=== PATIENT | male | born 1980 | race Caucasian/White ===

== ENCOUNTER 2020-10-13 17:19 | Emergency (ER) | payer OTHER, SELFPAY ==
--- NOTE | 2020-10-13 17:32 | CTR_ITS ---
PROCEDURE INFORMATION: Exam: CT Head Without Contrast Exam date and time: 10/13/2020 5:36 PM Age: 40 years old Clinical indication: Dizziness and visual disturbance; Patient HX: GREEN, dizziness, left blurred vision; Additional info: Speech difficulties TECHNIQUE: Imaging protocol: Computed tomography of the head without contrast. Total images: 211 Radiation optimization: All CT scans at this facility use at least one of these dose optimization techniques: automated exposure control; mA and/or kV adjustment per patient size (includes targeted exams where dose is matched to clinical indication); or iterative reconstruction. COMPARISON: No relevant prior studies available. RADIATION DOSE METRICS: Total DLP (mGy-cm): 878.1 FINDINGS: Brain: No evidence of active or acute intracranial pathologic process, hemorrhage, or trauma. No visible evidence of diffuse cerebral edema or generalized demyelination. No visible hyperdense MCA or insular ribbon sign. No mass effect. No midline shift. Cerebral ventricles: No ventriculomegaly. Bones/joints: Unremarkable. No acute fracture. Paranasal sinuses: Visualized sinuses are unremarkable. No fluid levels. Mastoid air cells: Findings suggesting the presence of chronic right mastoiditis. Auditory system: Subtle soft tissue fullness to the right middle ear without visible erosion of the ossicles. Cannot exclude otitis media or cholesteatoma. Soft tissues: Unremarkable. CT/CT head wo con* [id number] IMPRESSION: 1. No evidence of active or acute intracranial pathologic process, hemorrhage, or trauma. 2. Findings suggest the presence of a chronic right mastoiditis. 3. Subtle soft tissue fullness to the right middle ear without visible erosion of the ossicles. Cannot exclude otitis media or cholesteatoma. Radiation Dose CTDIVOL = (mGy): DLP = 878.1 (mGy-cm)
[2020-10-13 17:58] VITALS: BP 143/92; PULSE 80; RESP 16; TEMP 36.7; O2SAT 96; BMI 27.1
--- NOTE | 2020-10-13 20:24 | W.ED.HA ---
HPI - Headache General: Chief Complaint: Headache Stated Complaint: HEAD PAIN, DIZZY,NAUSEA Time Seen by Provider: 10/13/20 20:05 Source: patient Mode of arrival: ambulatory Limitations: no limitations History of Present Illness: HPI Narrative: Headache for the last 4 days progressively has gotten worse. Has been taking ibuprofen every 4-6 hours for pain with no improvement. Nausea, dizziness worse today. History of sinus infections, but not recent. History of multiple episodes AOM as an adult. MD elicited complaint: headache Onset description: gradually Severity: moderate Treatments prior to arrival: ibuprofen Review of Systems General: Reports: 10 or more systems reviewed and unremarkable except in HPI and below Neuro: Reports: headache(s) and dizziness Physical Exam Const: COMMON NORMALS: no acute distress, patient oriented x3 and no limitations GENERAL APPEARANCE: anxious HENMT: COMMON NORMALS: normocephalic and atraumatic HEAD & SCALP: normocephalic and atraumatic EXTERNAL EAR: Yes external ear abnormal (erythema,edema noted.) Abnormal external ear present: auricular tenderness (Right) TYMPANIC MEMBRANE: TM abnormal (Extensive scarring r/t prior tympanic tubes. ) Eye: COMMON NORMALS: Equal, round and reactive pupils present and EOMs intact bilaterally PUPIL: Yes Equal, round and reactive pupils present Resp: COMMON NORMALS: normal respiratory effort, No retractions, No use of accessory muscles and clear to auscultation bilaterally AUSCULTATION: clear to auscultation bilaterally Neuro: COMMON NORMALS: patient oriented x3 Course Vital Signs: Vital signs: Vital Signs Temperature 98.0 F 10/13/20 17:58 Pulse Rate 80 10/13/20 17:58 Respiratory Rate 16 10/13/20 17:58 Blood Pressure 143/92 10/13/20 17:58 Pulse Oximetry 96 10/13/20 17:58 MDM - Headache Lab Data: Labs: Lab Results 10/13/20 Range/Units 20:27 WBC 8.2 (4.0-10.0) 10^3/ uL RBC 5.56 H (4.1-5.3) 10^6/u L Hgb 17.0 H (11.7-16.6) g/dL Hct 49.2 (42.0-52.0) % MCV 88.5 (80-94) fL MCH 30.6 (28.0-34.0) pg MCHC 34.6 (30.0-36.0) g/dL RDW 12.5 (12.1-15.1) % Plt Count 231 (130-400) 10^3/c mm MPV 9.9 (7.4-10.4) fL Neut % (Auto) 51.3 % Lymph % (Auto) 38.2 % [place] % (Auto) 7.4 % Eos % (Auto) 2.2 % Baso % (Auto) 0.7 % Neut # (Auto) 4.18 (1.8-7.7) 10^3/u L Lymph # (Auto) 3.1 (0.8-4.8) 10^3/u L [place] # (Auto) 0.6 (0.2-0.9) 10^3/u L Eos # (Auto) 0.2 (0.0-0.8) 10^3/u L Baso # (Auto) 0.1 (0.0-0.1) 10^3/u L Nucleated RBC % (a uto) 0 % Nucleated RBCs # 0.0 /100WBC Discharge Plan Discharge Patient Disposition: Home Clinical Impression: Mastoiditis of right side Acute otitis media Qualifiers: Otitis media type: suppurative Laterality: right Recurrence: recurrent Spontaneous tympanic membrane rupture: without spontaneous rupture Qualified Code(s): H66.004 - Acute suppurative otitis media without spontaneous rupture of ear drum, recurrent, right ear Condition: Stable Prescriptions: New Cipro 500 mg tablet 750 mg PO BID 7 Days Qty: 21 RF: 0 Discharge Orders: Discharge ED (Routine); Ordered 10/13/20 Ordered By: Cristela Luong Referrals: Mickey Farrar MD [Physician] - 4-7 days Dontae Díaz MD [Primary Care Provider] - Discharge Diet: Usual diet Discharge Activity: Increase activity as tolerated Patient Instructions: Opioid Safety Coding Level of Care Code ED Business Continuity Manager for Chg Fwd Exam Expanded Problem Focused
[2020-10-13 20:33] LABS: Basophils # 0.1 10^3/uL (0.0-0.1); Basophils % 0.7 %; Eosinophils # 0.2 10^3/uL (0.0-0.8); Eosinophils % 2.2 %; Hematocrit 49.2 % (42.0-52.0); Lymphocytes # 3.1 10^3/uL (0.8-4.8); Lymphocytes % 38.2 %; Mean Corpuscular HGB Conc 34.6 g/dL (30.0-36.0); Mean Corpuscular Hemoglobin 30.6 pg (28.0-34.0); Mean Corpuscular Volume 88.5 fL (80-94); Mean Platelet Volume 9.9 fL (7.4-10.4); Monocytes # 0.6 10^3/uL (0.2-0.9); Monocytes % 7.4 %; Neutrophils # 4.18 10^3/uL (1.8-7.7); Neutrophils % 51.3 %; Nucleated Red Blood Cells % 0 %; Platelet Count 231 10^3/cmm (130-400); Red Blood Count 5.56 10^6/uL (4.1-5.3); Red Cell Distribution Width 12.5 % (12.1-15.1); White Blood Count 8.2 10^3/uL (4.0-10.0)
[2020-10-13] MEDS: ciprofloxacin 500 mg Tablet 750 MG PO (20:52)
[2020-10-13] MEDS: HYDROcodone-acetaminophen 7.5-325 mg Tablet 3 TAB PO (20:53)
[2020-10-13 20:56] VITALS: BP 137/89; PULSE 73; RESP 18; O2SAT 99
[2020-10-13 20:56] LABS: Alanine Aminotransferase 29 U/L (0-41); Albumin Level 4.5 g/dL (3.5-5.2); Alkaline Phosphatase 89 IU/L (40-130); Anion Gap 13.9 (5-19); Aspartate Amino Transferase 17 U/L (0-40); Blood Urea Nitrogen 12 mg/dL (6-20); Calcium 9.2 mg/dL (8.5-10.5); Carbon Dioxide 26 mmol/L (22-29); Chloride 100 mmol/L (98-107); Creatinine Clr Calc Pharmacy 162.7356; Globulin 3.3 g/dL (1.3-4.6); Glomerular Filtration Rate 124.3 mL/min (90-130); Glucose 81 mg/dL (65-115); Osmolality Calculated 281 mOsm/kg (285-295); Potassium 3.9 mmol/L (3.5-5.1); Sodium 136 mmol/L (136-145); Total Bilirubin 0.6 mg/dL (0.15-1.2); Total Protein 7.8 g/dL (6.6-8.7)
--- NOTE | 2020-10-14 08:54 | DCPLANNER ---
sales promotion manager had message to schedule a follow up appointment for patient with ortho. Case manage emailed patients information to Yanet Augustine and Rachel at [facility] clinic. Patients information will be printed and reviewed. Clinic will call patient with appointment information.
--- NOTE | 2020-10-26 11:09 | DCPLANNER ---
Addendum entered by Jenni Thrasher 10/26/20 12:43: Fawn from [facility] emailed bottle caser stating that a follow up appointment had been scheduled for patient, then patient called and cancelled the appointment. Original Note: ehs manager emailed the ENT clinic to check on referral, no appointment made at this time.
== END 2020-10-13 20:56 | disposition home or self-care (01) ==
PROVIDERS: Family Medicine; Emergency Provider Nurse Practitioner Family; PCP Family Medicine
DX: H66.004 Acute suppurative otitis media without spontaneous rupture of ear drum, recurrent, right ear (principal); H70.91 Unspecified mastoiditis, right ear
CPT/HCPCS: 36415; 70450; 80053; 85025; 99283

== ENCOUNTER 2021-01-01 22:29 | Emergency (ER) | payer OTHER, SELFPAY ==
[2021-01-01 22:56] VITALS: BP 134/77; PULSE 77; RESP 17; TEMP 37.2; O2SAT 96; BMI 28.5
--- NOTE | 2021-01-01 23:03 | W.ED.EXTPRO ---
HPI - Extremity Problem General: Chief complaint: Extremity Injury, Lower Stated complaint: left foot and leg injury Time Seen by Provider: 01/01/21 23:03 History of Present Illness: HPI Narrative: Patient comes in today for concerns of bruising to the third digit on the left foot after he had injured it yesterday while running after the dog. Patient was also concerned for some increased swelling in the lower extremities bilateral. Patient appears well. Patient appears no acute distress. Review of Systems General: Reports: 10 or more systems reviewed and unremarkable except in HPI and below Musc: Reports: other (Toe injury left foot) Physical Exam Const: COMMON NORMALS: no acute distress and patient oriented x3 GENERAL APPEARANCE: cooperative HENMT: COMMON NORMALS: normocephalic and Normal external nose present HEAD & SCALP: normal to inspection and normocephalic NOSE: Normal external nose present Eye: GENERAL EYE: appearance normal, both eyes and all related structures Neck/C-Spine: COMMON NORMALS: full ROM Chest: COMMONS NORMALS: normal inspection of the chest Resp: COMMON NORMALS: normal respiratory effort EFFORT & INSPECTION: Yes able to speak in complete sentences Cardio: COMMON NORMALS: regular rate and regular rhythm RATE: regular rate RHYTHM: regular rhythm GI: COMMON NORMALS: non-tender Extremity: NARRATIVE EXTREMITY EXAM: Sunburn is noted to bilateral lower extremities. Sunburn is worse to the left lower leg. Patient denies any calf tenderness or posterior knee tenderness. Pulses are intact in bilateral lower extremities. Patient has ecchymosis and swelling noted to the midfoot at the third digit. Cap refill is intact. Neuro: COMMON NORMALS: patient oriented x3 and moves all extremities Psych: COMMON NORMALS: mental status grossly normal and cooperative Skin: COMMON NORMALS: no rashes or lesions noted GENERAL SKIN EXAM: no rashes or lesions noted Course Vital Signs: Vital signs: Vital Signs Temperature 98.9 F 01/01/21 22:56 Pulse Rate 77 01/01/21 22:56 Respiratory Rate 17 01/01/21 22:56 Blood Pressure 134/77 01/01/21 22:56 Pulse Oximetry 96 01/01/21 22:56 MDM - Extremity (Nontraumatic) MDM Narrative: Medical decision making narrative: Patient comes in for evaluation of injury to the left lower leg. On exam patient has ecchymosis and swelling to the midfoot on the left side with the third digit also being swollen and bruised. Patient denied any pain to the calf or to the posterior knee on palpation. Differential diagnosis includes but not limited to fracture of the toe, contusion of the toe, DVT. No signs of DVT is noted at this time. I feel that the swelling is probably due to the heat and secondary sunburn. X-ray showed no sign of fracture to the foot I feel the patient probably has a contusion to the toe and he did describe possible dislocation that was reduced by his spouse. Reviewed exam with patient with recommendations for follow-up or return. Discharge Plan Discharge Patient Disposition: Home Clinical Impression: Contusion of toe Qualifiers: Encounter type: initial encounter Toe: lesser toe Damage to nail status: without damage Laterality: left Qualified Code(s): S90.122A - Contusion of left lesser toe(s) without damage to nail, initial encounter Heat edema Qualifiers: Encounter type: initial encounter Qualified Code(s): T67.7XXA - Heat edema, initial encounter Condition: Stable Discharge Orders: Discharge ED (Routine); Ordered 01/02/21 Ordered By: Angel Franklin Referrals: Dontae Díaz MD [Primary Care Provider] - Discharge Diet: Usual diet Discharge Activity: Increase activity as tolerated Patient Instructions: Foot Contusion (ED), Opioid Safety Activity Restrictions/Additional Instructions: Wear good supportive shoe. Use acetaminophen or ibuprofen for pain. Activity as tolerated. Try to elevate extremities as much as possible. Drink plenty of water and fluids. If you are sweating profusely try to drink 8 ounces of Gatorade for every 8 ounces of water. Follow-up with primary care as needed. Return to the ER for new concerns. Coding Level of Care Code ED Tree Sapper for Lucita Mora
--- NOTE | 2021-01-01 23:04 | XRR_ITS ---
PROCEDURE INFORMATION: Exam: XR Left Foot Exam date and time: 01/01/2021 11:04 PM Age: 40 years old Clinical indication: Injury or trauma; Fall; Blunt trauma; Foot; Left TECHNIQUE: Imaging protocol: XR Left foot. Views: 3 or more views. COMPARISON: No relevant prior studies available. FINDINGS: Bones/joints: Normal. Soft tissues: Normal. XR/XR foot LT min 3V* [id number] IMPRESSION: No acute findings.
--- NOTE | 2021-01-01 23:19 | PC.NURSE ---
Gave pt an ice pack.
[2021-01-02 00:58] VITALS: BP 127/78; PULSE 76; RESP 16; O2SAT 97
== END 2021-01-02 00:59 | disposition home or self-care (01) ==
PROVIDERS: Emergency Provider Nurse Practitioner Family; PCP Family Medicine
DX: S90.122A Contusion of left lesser toe(s) without damage to nail, initial encounter (principal); T67.7XXA Heat edema, initial encounter; X58.XXXA Exposure to other specified factors, initial encounter; Y93.02 Activity, running
CPT/HCPCS: 73630; 99282

== ENCOUNTER 2021-09-04 18:08 | Emergency (ER) | payer OTHER, SELFPAY ==
[2021-09-04 18:27] VITALS: BP 158/90; PULSE 80; RESP 16; TEMP 36.8; O2SAT 96; BMI 26.4
--- NOTE | 2021-09-04 18:36 | W.ED.BURNSMK ---
HPI - Burn/Smoke Inhalation General: Chief complaint: Burn/Smoke Inhalation Stated complaint: burn on hands Time Seen by Provider: 09/04/21 18:36 History of Present Illness: 41-year-old male patient comes in for evaluation of wound sustained from chemical exposure at work. Patient was exposed Bonderite adhesive accidentally when he had been rolling up paperwork that had a splash of the product on it. Patient complains of burning and tenderness to bilateral hands and area of redness to the left palmar hand. Poison control was contacted and they recommended flushing the hand and using calcium gluconate just for discomfort and short-term. Then treat residual as a burn. Patient has trust hand thoroughly at work for about 15 minutes. Patient then has been using some calcium gluconate which has helped with the pain and discomfort. MD Complaint: burn Location - Extremities: Bilateral: hand Associated symptoms: Deny chest pain Review of Systems General: Reports: 10 or more systems reviewed and unremarkable except in HPI and below Card: Denies: chest pain Resp: Denies: dyspnea Musc: Reports: extremity pain Skin/Breast: Reports: erythema and skin pain Physical Exam Const: COMMON NORMALS: alert Neck/C-Spine: COMMON NORMALS: full ROM Resp: COMMON NORMALS: normal respiratory effort Cardio: COMMON NORMALS: regular rate and regular rhythm RATE: regular rate RHYTHM: regular rhythm Extremity: RIGHT UPPER EXTREMITY: Yes hand & digits (Unremarkable exam) Right hand and digits: Yes inspection, Yes palpation and Yes ROM exam LEFT UPPER EXTREMITY: Yes hand & digits (2 and half centimeter circular lesion to the thenar area) Left hand and digits: Yes inspection, Yes palpation and Yes ROM Neuro: SENSORIUM/ORIENTATION: Yes alert Course Vital Signs: Vital signs: Vital Signs Temperature 98.2 F 09/04/21 18:27 Pulse Rate 80 09/04/21 19:03 Respiratory Rate 16 09/04/21 19:03 Blood Pressure 158/90 09/04/21 19:03 Pulse Oximetry 98 09/04/21 19:03 MDM - Burn/Smoke Inhalation Medical Decision Making Patient presents with a injury secondary to chemical exposure at work. On exam we noted a area of redness and tenderness to the left thenar aspect of the palm of left hand. Patient has normal range of motion. No significant skin sloughing or blistering. Differential diagnosis first-degree burn, contact dermatitis, worried well. Believe the patient probably has a superficial burn secondary to chemical/acid exposure. Patient was recommended to care for the wound as he would a mild burn. Patient reported understanding agreed to plan. Patient will follow up with Workmen's Comp. or primary care as recommended Discharge Plan Discharge Patient Disposition: Home Clinical Impression: Chemical burn of left hand Qualifiers: Encounter type: initial encounter Corrosion degree: first degree Qualified Code(s): T23.502A - Corrosion of first degree of left hand, unspecified site, initial encounter Condition: Stable Prescriptions: New bacitracin 500 unit/gram ointment 1 applic topical BID Qty: 28 0RF Discharge Orders: Discharge ED (Routine); Ordered 09/04/21 Ordered By: Angel Franklin Referrals: Dontae Díaz MD [Primary Care Provider] - Discharge Diet: Usual diet Discharge Activity: Increase activity as tolerated Patient Instructions: Chemical Skin Burn (ED) Activity Restrictions/Additional Instructions: Activity as tolerated. Monitor wound site for signs of infection such as increasing redness, purulent drainage, or pain. Most first-degree barraza will resolve in 2 to 3 days. Follow-up with primary care for further instruction. Return to ER for new concerns Coding Level of Care Code ED Manufacturing Assembler for Lucita Mora
[2021-09-04 19:03] VITALS: BP 158/90; PULSE 80; RESP 16; O2SAT 98
== END 2021-09-04 19:28 | disposition home or self-care (01) ==
PROVIDERS: Emergency Provider Nurse Practitioner Family; PCP Family Medicine
DX: T23.502A Corrosion of first degree of left hand, unspecified site, initial encounter (principal); X58.XXXA Exposure to other specified factors, initial encounter; Y99.0 Civilian activity done for income or pay
CPT/HCPCS: 99281

== ENCOUNTER 2021-09-29 10:12 | Outpatient (CLI) | payer OTHER, SELFPAY ==
--- NOTE | 2021-09-29 10:23 | CT_ITS ---
WS: [id number] CT ABDOMEN AND PELVIS WITH CONTRAST HISTORY: LEFT lower quadrant pain for 5 months. TECHNIQUE: Imaging performed of the abdomen and pelvis with IV contrast. Single phase imaging of the abdomen. Coronal and sagittal reformats are submitted. All CT scans at [facility] use at [address] one of these dose optimization techniques: automated exposure control; mA and/or kV adjustment per patient size (includes targeted exams where dose is matched to clinical indication); or iterative re construction. IV CONTRAST: Omnipaque 350; 95 mL IV. Oral contrast: Yes. DLP: 1108.76 mGy.cm COMPARISON: 11/19/2012 Lower thorax: Lung bases are clear. Heart is normal size. No hiatal hernia. Liver/biliary system: Normal size with no intrahepatic dilatation. No portal vein. Gallbladder: Normal. No gallstones or wall thickening. No pericholecystic fluid. Pancreas: Normal size pancreas and pancreatic duct. No adjacent inflammation. Spleen: Normal size spleen. No mass or infarct. Adrenal glands: Normal. Right kidney: Normal size kidney. Nonobstructing calcifications. The largest calcification in the mid kidney measures 7 mm. No ureteral obstruction. Left kidney: Normal size kidney. Nonobstructing calcifications within the pelvis. The largest measure s 4 mm in the mid kidney. There are a few scattered hypodensities which are too small to characterize . Aorta: Mild atherosclerosis with no aneurysm. SMA and celiac axis are patent. There is increased thro mbus at the level of the MANOLO. Very similar to the prior study from 2012. Lymphadenopathy: None. Free fluid: None. GI tract: Stomach is not distended. No small bowel obstruction. Prior appendectomy. Mild constipation and retained fecal material in the RIGHT colon. No significant diverticular disease. No acute divert iculitis. Mild to moderate fecal retention in the distal colon. Abdominal wall: Unremarkable abdominal wall. No hernia. Pelvis: Mildly distended bladder. There is very mild diffuse wall thickening of the bladder. No focal nodule or enhancement. Prostate is not significantly enlarged. Bones: Unremarkable. CT/CT abdomen pelvis w con* [id number] IMPRESSION: 1. No acute abdominal or pelvic abnormalities are identified. 2. Mild constipation with no evidence for acute diverticulitis. 3. No free fluid or adenopathy. 4. Prior appendectomy. 5. Bilateral nonobstructing renal calculi.
[2021-09-29] MEDS: iohexol 300 mg/mL 50 mL Btl PO (10:37)
[2021-09-29] MEDS: iohexol 350 mg/mL 100 mL Btl IV (10:37)
== END 2021-09-29 10:13 | disposition home or self-care (01) ==
LOC: RAD 10:13
PROVIDERS: PCP Family Medicine; Visit Provider Family Medicine
DX: R10.32 Left lower quadrant pain (principal); R20.9 Unspecified disturbances of skin sensation; Z90.89 Acquired absence of other organs; N20.0 Calculus of kidney
CPT/HCPCS: 74177

== ENCOUNTER 2021-11-08 09:35 | Day surgery (SDC) | payer OTHER, SELFPAY ==
[2021-11-06 12:04] VITALS: BMI 26.0
--- NOTE | 2021-11-08 10:40 | W.PM.OPSUD ---
Surgery/Procedure H&P Update DATE OF PROCEDURE: November 08, 2021 DATE H&P PERFORMED: 11/01/21 CHANGES TO PREVIOUS DOCUMENTATION: NONE PREOP DIAGNOSIS: Abdominal pain and constipation PLANNED PROCEDURE: Operation Date: 11/08/21 11:15 Proposed Procedures p [id number] EGD, [id number] Colonoscopy K59.00,R10.9(Not Applicable) - Oleg Lagos DO s Colonoscopy(Not Applicable) - Oleg Lagos DO
[2021-11-08 10:41] VITALS: BP 151/88; PULSE 76; RESP 18; TEMP 36.2; O2SAT 98
[2021-11-08] MEDS: sodium chloride 0.9% 1,000 ML 30 ML IV (10:49)
--- NOTE | 2021-11-08 11:22 | ANES.PREANE2 ---
Pre-Anesthetic Assessment Height/Weight: Height 1.83 m Weight 87.09 kg Temp Pulse Resp BP Pulse Ox 97.1 F L 76 18 151/88 98 11/08/21 10:41 11/08/21 10:41 11/08/21 10:41 11/08/21 10:41 11/08/21 10:41 Preop Diagnosis: Abdominal pain and constipation Operation Date: 11/08/21 11:15 Proposed Procedures p [id number] EGD, [id number] Colonoscopy K59.00,R10.9(Not Applicable) - Oleg Lagos DO s Colonoscopy(Not Applicable) - Oleg Lagos DO Last intake: Intake Last Liquid Date 11/07/21 Last Liquid Time 23:00 Last Solid Date 11/06/21 Last Solid Time 18:00 Social Alcohol and Tobacco Airway Submandibular: within normal limits Mallampati: Class II Dentition: other (PROFOUND DENTAL AND PERIODNTAL DISEASE ) GI post prandial abdominal pain Anesthetic Plan ASA status: 2 Anesthesia: MAC Medications/Allergies Home Medications Medication Instructions Recorded Confirmed Last Taken Type No Known Home Medications 11/06/21 11/06/21 Unknown History Allergies Allergy/AdvReac Type Severity Reaction Status Date / Time No Known Allergies Allergy Verified 11/06/21 12:03 Current Medications Generic Name Dose Route Start Last Admin Trade Name Freq PRN Reason Stop Dose Admin Sodium Chloride 1,000 mls @ 30 mls/hr 11/08/21 10:45 11/08/21 10:49 Sodium Chloride 0.9% IV 11/09/21 10:44 30 mls/hr .Q24H JASSI Administration PFSH Anesthesia Surgical History History of appendectomy 2012 History of placement of ear tubes x8 History of umbilical hernia repair 2012 Family History Other Anesthesia complication Diabetes Denies family history of CAD (coronary artery disease) Dementia Chronic kidney disease (CKD) Bleeding disorder Cancer Stroke Social History Smoking and tobacco status: current every day smoker Alcohol intake: never Lives independently: Yes Household members: spouse Marital status: Data Anesthesia Cardiac Studies: No Data to Display
[2021-11-08 12:59] VITALS: BP 120/75; PULSE 77; RESP 16; TEMP 36.1; O2SAT 95
[2021-11-08 13:11] VITALS: BP 143/97; PULSE 82; RESP 18; O2SAT 95
--- NOTE | 2021-11-08 13:26 | ANE.PACU2 ---
Inpatient post-anesthesia follow up: Vital signs: Temperature 97 F Pulse Rate 82 Respiratory Rate 18 Blood Pressure 143/97 Pulse Oximetry 95 Oxygen Delivery Me thod Room Air Oxygen Flow Rate Fraction of Inspir ed Oxygen Hydration adequate: Yes Nausea and vomiting: No Pain level: 1 Mental status: Baseline
== END 2021-11-08 13:44 | disposition home or self-care (01) ==
PROVIDERS: PCP Family Medicine; Visit Provider Surgery
PROC: 0DJ08ZZ Inspection of Upper Intestinal Tract, Via Natural or Artificial Opening Endoscopic (ICD-10-PCS; CPT 43235; principal; 2021-11-08 11:15)
PROC: 0DJD8ZZ Inspection of Lower Intestinal Tract, Via Natural or Artificial Opening Endoscopic (ICD-10-PCS; CPT 45378; 2021-11-08 11:15)
DX: K59.00 Constipation, unspecified (principal); R10.9 Unspecified abdominal pain; F17.210 Nicotine dependence, cigarettes, uncomplicated; K63.5 Polyp of colon
CPT/HCPCS: 43235; 45385; 88305; J2704; J7030

== ENCOUNTER 2021-11-21 10:35 | Emergency (ER) | payer OTHER, SELFPAY ==
[2021-11-21 10:51] VITALS: BP 148/85; PULSE 85; RESP 18; TEMP 36.4; O2SAT 99; BMI 26.4
--- NOTE | 2021-11-21 10:53 | ED_ITS ---
Documented by User: ALVINA Rivera 11/22/21 07:44 HPI - Abdominal Pain General: Chief Complaint: Abdominal Pain Stated Complaint: L LOWER ABD PAIN Time Seen by Provider: 11/21/21 10:49 History of Present Illness: Patient is a 41-year-old male comes to the ED with abdominal pain. Symptoms started acutely this morning. He woke up and had left lower quadrant abdominal pain that is sharp and stabbing. Pain rated 10 out of 10. Pain radiates up into left lower back and left kidney. Patient does have a history of left lower quadrant abdominal pain that has been on and off for the past 6 months and has had previous CT scans and it showed no acute findings and a colonoscopy done as well on November 08. he does have a history of kidney stones but says this does not seem similar to his past kidney stone. Associated Symptoms: Reports nausea and vomiting; Denies chills, constipation, diarrhea, dysuria, fever(s), hematochezia and hematuria Review of Systems Const: Denies: fever(s), chills or fatigue Eyes: Denies: change in vision or eye discomfort ENMT: Denies: throat pain, odynophagia, nasal discharge or nasal congestion Card: Denies: chest pain, palpitations, edema, swelling of feet/ankles, dyspnea on exertion or orthopnea Resp: Denies: dyspnea, productive cough or non-productive cough GI: Reports: abdominal pain (Left lower quadrant), nausea and vomiting; Denies: diarrhea, constipation or hematochezia : Reports: flank pain (Left flank); Denies: difficulty urinating, dysuria or hematuria Musc: Denies: neck pain, back pain or extremity swelling Skin/Breast: Denies: rash or new lesions Neuro: Denies: headache(s), numbness in extremities or weakness in extremities PFSH ED PFSH: Surgical History History of appendectomy 2012 History of placement of ear tubes x8 History of umbilical hernia repair 2012 Family History Other Anesthesia complication Diabetes Denies family history of CAD (coronary artery disease) Dementia Chronic kidney disease (CKD) Bleeding disorder Cancer Stroke Social History Smoking and tobacco status: current every day smoker Alcohol intake: never Lives independently: Yes Household members: spouse Marital status: Physical Exam Const: COMMON NORMALS: patient oriented x3 and alert GENERAL APPEARANCE: cooperative HENMT: COMMON NORMALS: normocephalic HEAD & SCALP: normocephalic MOUTH: Normal oral and palatal mucosa present THROAT: posterior oropharynx normal and uvula midline Neck/C-Spine: COMMON NORMALS: supple GENERAL: Yes normal visual inspection Resp: COMMON NORMALS: normal respiratory effort, No retractions, No use of accessory muscles and clear to auscultation bilaterally AUSCULTATION: clear to auscultation bilaterally Cardio: COMMON NORMALS: regular rate, regular rhythm, S1 normal heart sound present, S2 normal heart sound present, No gallops present (Cardio), No clicks present (Cardio), No murmurs present (Cardio) and Peripheral pulses 2+ throughout RATE: regular rate RHYTHM: regular rhythm HEART SOUNDS: S1 normal heart sound present and S2 normal heart sound present PERIPHERAL PULSES: Peripheral pulses 2+ throughout GI: COMMON NORMALS: Normal to inspection, nondistended, normoactive bowel sounds present, Soft to palpation and no masses PALPATION: Yes Soft to palpation and Yes Tenderness to palpation present (GI) Details: LLQ : BLADDER/KIDNEY EXAM: Yes CVA tenderness on the left Back/Pelvis: GENERAL BACK: Yes CVA tenderness Extremity: COMMON NORMALS: normal to inspection Neuro: COMMON NORMALS: patient oriented x3 and moves all extremities SENSORIUM/ORIENTATION: Yes alert Skin: GENERAL SKIN EXAM: dry skin Course Reevaluation(s): Reevaluation #1: Patient's pain was well controlled after Toradol was given. He is a lot more comfortable and his nausea and vomiting have resolved as well. Time: 13:40 Vital Signs: Vital signs: Vital Signs Temperature 97.6 F 11/21/21 10:51 Pulse Rate 85 11/21/21 10:51 Respiratory Rate 18 11/21/21 11:29 Blood Pressure 148/85 11/21/21 10:51 Pulse Oximetry 99 11/21/21 10:51 MDM - Abdominal Pain Medical Decision Making Patient is a 41-year-old male comes to the ED with acute left flank pain. Symptoms started this morning. He is also having nausea and vomiting as well. He has history of past kidney stones. Vitals are stable. Patient appears in pain and has left lower quadrant abdominal tenderness along with left CVA tenderness. Rest of exam is benign. UA shows a lot of blood, but no signs of infection noted. The rest of his labs are unremarkable. CT abdomen pelvis shows an obstructing 3.6 mm stone in the distal left ureter with mildly left ureter ureterectasis and mild left hydronephrosis. Patient's pain was controlled with IV Toradol. I placed an order with case management for patient to be referred to Dr. Wolf for further evaluation of kidney stone. Patient was stable for discharge home and instructed to strain urine to catch stone and bring with him to Dr. Wolf's office for further evaluation. Patient was discharged home with a prescription for hydrocodone for acute pain, naproxen, Zofran and tamsulosin. Return to ED precautions given. Patient understood and agreed with plan. Lab Data I reviewed the patient's lab results. : 11/21/21 10:45 11/21/21 10:45 Labs/Radiology: Radiology Impressions Abdomen/Pelvis CT 11/21/21 10:56 IMPRESSION: 1. Obstructing 3.6 mm LEFT distal ureteral calculus is new from previous. 2. Mild LEFT ureterectasis with mild LEFT hydronephrosis. Inflammatory stranding and edema about the LEFT kidney. 3. Nonobstructing RIGHT renal or ureteral calculi. 4. Prior appendectomy. 5. No other significant changes from previous. Notified ALVINA Rivera at 11/21/2021 12:21 PM. Laboratory Results WBC 10.9 10^3/uL (4.0-10.0) H 11/21/21 10:45 RBC 5.05 10^6/uL (4.1-5.3) 11/21/21 10:45 Hgb 15.7 g/dL (11.7-16.6) 11/21/21 10:45 Hct 44.2 % (42.0-52.0) 11/21/21 10:45 MCV 87.5 fl (80-94) 11/21/21 10:45 MCH 31.1 pg (28.0-34.0) 11/21/21 10:45 MCHC 35.5 g/dL (30.0-36.0) 11/21/21 10:45 RDW 12.9 % (12.1-15.1) 11/21/21 10:45 Plt Count 207 10^3/cmm (130-400) 11/21/21 10:45 MPV 11.8 fL (7.4-10.4) H 11/21/21 10:45 Neut % (Auto) 58.9 % 11/21/21 10:45 Lymph % (Auto) 30.1 % 11/21/21 10:45 Faulkner % (Auto) 7.5 % 11/21/21 10:45 Eos % (Auto) 2.6 % 11/21/21 10:45 Baso % (Auto) 0.6 % 11/21/21 10:45 Neut # (Auto) 6.41 10^3/uL (1.8-7.7) 11/21/21 10:45 Lymph # (Auto) 3.3 10^3/uL (0.8-4.8) 11/21/21 10:45 Faulkner # (Auto) 0.8 10^3/uL (0.2-0.9) 11/21/21 10:45 Eos # (Auto) 0.3 10^3/uL (0.0-0.8) 11/21/21 10:45 Baso # (Auto) 0.1 10^3/uL (0.0-0.1) 11/21/21 10:45 Nucleated RBC % (auto) 0 % 11/21/21 10:45 Nucleated RBCs # 0.0 /100WBC 11/21/21 10:45 Sodium 139 mmol/L (136-145) 11/21/21 10:45 Potassium 3.5 mmol/L (3.5-5.1) 11/21/21 10:45 Chloride 106 mmol/L (98-107) 11/21/21 10:45 Carbon Dioxide 21 mmol/L (22-29) L 11/21/21 10:45 Anion Gap 15.5 (5-19) 11/21/21 10:45 BUN 13 mg/dL (6-20) 11/21/21 10:45 Creatinine 0.7 mg/dL (0.7-1.2) 11/21/21 10:45 GFR Calculation 123.7 mL/min (90-130) 11/21/21 10:45 Glucose 158 mg/dL (65-115) H 11/21/21 10:45 Calculated Osmolality 291 mOsm/kg (285-295) 11/21/21 10:45 Calcium 8.8 mg/dL (8.5-10.5) 11/21/21 10:45 Total Bilirubin 0.4 mg/dL (0.15-1.2) 11/21/21 10:45 AST 14 U/L (0-40) 11/21/21 10:45 ALT 15 U/L (0-41) 11/21/21 10:45 Alkaline Phosphatase 90 IU/L (40-130) 11/21/21 10:45 Total Protein 7.0 g/dL (6.6-8.7) 11/21/21 10:45 Albumin 4.0 g/dL (3.5-5.2) 11/21/21 10:45 Globulin 3.0 g/dL (1.3-4.6) 11/21/21 10:45 Lipase 62 U/L (13-60) H 11/21/21 10:45 Urine Color Yellow (Yellow) 11/21/21 14:30 Urine Appearance Cloudy (CLEAR) 11/21/21 14:30 Urine pH 6.5 (5-7) 11/21/21 14:30 Ur Specific Powell 1.015 (1.005-1.030) 11/21/21 14:30 Urine Protein Neg (Negative) 11/21/21 14:30 Urine Glucose (UA) Norm (Normal) 11/21/21 14:30 Urine Ketones 1+ (Negative) H 11/21/21 14:30 Urine Blood 3+ (Negative) H 11/21/21 14:30 Urine Nitrate Negative (Negative) 11/21/21 14:30 Urine Bilirubin Neg (Negative) 11/21/21 14:30 Urine Urobilinogen Norm mg/dL (Negative) 11/21/21 14:30 Ur Leukocyte Esterase Negative (Negative) 11/21/21 14:30 Urine RBC Too numerous to cnt /hpf (0-2) H 11/21/21 14:30 Urine WBC 0-4 /hpf (0-5) H 11/21/21 14:30 Ur Squamous Epith Cells 0-4 /hpf (0-5) H 11/21/21 14:30 Amorphous Sediment Not Reportable 11/21/21 14:30 Urine Bacteria 1+ /hpf (NONE) H 11/21/21 14:30 Urine Mucus 1+ /hpf 11/21/21 14:30 Discharge Plan Discharge Patient Disposition: Home Clinical Impression: Kidney stone on left side Condition: Stable Prescriptions: New ondansetron 4 mg tablet,disintegrating 4 mg PO Q8H PRN (Reason: nausea and vomiting) Qty: 15 0RF Naprosyn 500 mg tablet 500 mg PO BID PRN (Reason: pain) Qty: 20 0RF tamsulosin 0.4 mg capsule 0.4 mg PO DAILY Qty: 20 0RF Rx Instructions: Take daily until you pass kidney stone. Discharge Orders: Discharge ED (Routine); Ordered 11/21/21 Ordered By: Franck Grayson Referrals: Contreras Kramer MD [Primary Care Provider] - Discharge Diet: Regular Discharge Activity: Increase activity as tolerated Patient Instructions: Kidney Stones (ED), How to Strain Your Urine (ED) Activity Restrictions/Additional Instructions: Follow-up with medical provider as directed. Case management should be contacting you in the next several days to set up an appointment with Dr. Wolf the urologist. Strain urine to catch stone and drink lots of fluid to stay hydrated and help pass stone. Take medications as prescribed. Return to the ER or your medical provider if condition worsens. Please read and understand discharge instructions. If any questions, please ask. Stand Alone Forms: Work/School Release Coding Level of Care Code ED Technical Services Assistant for Chg Fwd Exam Comprehensive Documented by User: Justo Carreon DO 11/22/21 08:23 HPI - Abdominal Pain General: Chief Complaint: Abdominal Pain Stated Complaint: L LOWER ABD PAIN Time Seen by Provider: 11/21/21 10:49 PFSH ED PFSH: Surgical History History of appendectomy 2012 History of placement of ear tubes x8 History of umbilical hernia repair 2012 Family History Other Anesthesia complication Diabetes Denies family history of CAD (coronary artery disease) Dementia Chronic kidney disease (CKD) Bleeding disorder Cancer Stroke Social History Smoking and tobacco status: current every day smoker Alcohol intake: never Lives independently: Yes Household members: spouse Marital status: Course Vital Signs: Vital signs: Vital Signs Temperature 97.6 F 11/21/21 10:51 Pulse Rate 85 11/21/21 10:51 Respiratory Rate 18 11/21/21 11:29 Blood Pressure 148/85 11/21/21 10:51 Pulse Oximetry 99 11/21/21 10:51 MDM - Abdominal Pain Medical Decision Making Patient is a 41-year-old male comes to the ED with acute left flank pain. Symptoms started this morning. He is also having nausea and vomiting as well. He has history of past kidney stones. Vitals are stable. Patient appears in pain and has left lower quadrant abdominal tenderness along with left CVA tenderness. Rest of exam is benign. UA shows a lot of blood, but no signs of infection noted. The rest of his labs are unremarkable. CT abdomen pelvis shows an obstructing 3.6 mm stone in the distal left ureter with mildly left ureter ureterectasis and mild left hydronephrosis. Patient's pain was controlled with IV Toradol. I placed an order with case management for patient to be referred to Dr. Wlof for further evaluation of kidney stone. Patient was stable for discharge home and instructed to strain urine to catch stone and bring with him to Dr. Wolf's office for further evaluation. Patient was discharged home with a prescription for hydrocodone for acute pain, naproxen, Zofran and tamsulosin. Return to ED precautions given. Patient understood and agreed with plan. Chart reviewed and patient discussed with midlevel. Agree with assessment and plan. Lab Data : 11/21/21 10:45 11/21/21 10:45 Labs/Radiology: Radiology Impressions Abdomen/Pelvis CT 11/21/21 10:56
--- NOTE | 2021-11-21 10:56 | CT_ITS ---
WS: [id number] CT ABDOMEN PELVIS TECHNIQUE: Noncontrast CT of the abdomen and pelvis with coronal and sagittal reformatted images. CLINICAL INFORMATION: LLQ pain and left flank pain COMPARISON: CT September 29, 2021 DLP: 1136.[address] scans at [facility] use at least one of these dose optimization techniques: automated e xposure control; mA and/or kV adjustment per patient size (includes targeted exams where dose is matc hed to clinical indication); or iterative reconstruction. FINDINGS: Obstructive calculus distal LEFT ureter measuring 3.6 mm is new from previous. This is proximal to th e LEFT UVJ. Mild LEFT ureterectasis. Mild LEFT hydronephrosis with pelvocaliectasis. Mild inflammator y stranding and induration of the LEFT kidney is new from previous. No obstructing RIGHT renal or ure teral calculi. Nonobstructing calyceal tip calculi bilaterally. Lung bases are well aerated. Noncontrast liver is no rmal. Normal GE junction. Normal stomach and proximal duodenum. Adrenal glands are normal. Noncontras t pancreas is normal. Normal noncontrast spleen. Gallbladder is contracted. Mild aortic calcification. Normal sigmoid colon. No evidence of high-grade small or large bowel obstr uction. Evidence of prior appendectomy. CT/CT kidney stone [id number] IMPRESSION: 1. Obstructing 3.6 mm LEFT distal ureteral calculus is new from previous. 2. Mild LEFT ureterectasis with mild LEFT hydronephrosis. Inflammatory strandi ng and edema about the LEFT kidney. 3. Nonobstructing RIGHT renal or ureteral calculi. 4. Prior appendectomy. 5. No other significant changes from previous. Notified ALVINA Rivera at 11/21/2021 12:21 PM.
[2021-11-21 10:59] VITALS: RESP 18
[2021-11-21] MEDS: ondansetron 2 mg/ML SDV 2 mL 4 MG IVP (10:59)
[2021-11-21] MEDS: morphine 4 mg/mL SDV 1 mL IVP (10:59)
[2021-11-21 11:25] LABS: Basophils # 0.1 10^3/uL (0.0-0.1); Basophils % 0.6 %; Eosinophils # 0.3 10^3/uL (0.0-0.8); Eosinophils % 2.6 %; Hematocrit 44.2 % (42.0-52.0); Hemoglobin 15.7 g/dL (11.7-16.6); Lymphocytes # 3.3 10^3/uL (0.8-4.8); Lymphocytes % 30.1 %; Mean Corpuscular HGB Conc 35.5 g/dL (30.0-36.0); Mean Corpuscular Hemoglobin 31.1 pg (28.0-34.0); Mean Corpuscular Volume 87.5 fl (80-94); Mean Platelet Volume 11.8 fL (7.4-10.4); Monocytes # 0.8 10^3/uL (0.2-0.9); Monocytes % 7.5 %; Neutrophils # 6.41 10^3/uL (1.8-7.7); Neutrophils % 58.9 %; Nucleated Red Blood Cells % 0 %; Platelet Count 207 10^3/cmm (130-400); Red Blood Count 5.05 10^6/uL (4.1-5.3); Red Cell Distribution Width 12.9 % (12.1-15.1); White Blood Count 10.9 10^3/uL (4.0-10.0)
[2021-11-21 11:29] VITALS: RESP 18
[2021-11-21] MEDS: HYDROmorphone 1 mg/mL INJ 1 mL IVP (11:29)
[2021-11-21 11:51] LABS: Blood Urea Nitrogen 13 mg/dL (6-20); Calcium 8.8 mg/dL (8.5-10.5); Glomerular Filtration Rate 123.7 mL/min (90-130); Total Bilirubin 0.4 mg/dL (0.15-1.2)
[2021-11-21] MEDS: metoclopramide 5 mg/mL SDV 2 mL 10 MG IVP (12:55)
[2021-11-21] MEDS: ketorolac 30 mg/mL INJ IVP (12:55)
[2021-11-21] MEDS: sodium chloride 0.9% 1,000 ML 999 ML IV (12:55)
[2021-11-21 13:08] LABS: Alanine Aminotransferase 15 U/L (0-41); Alkaline Phosphatase 90 IU/L (40-130); Aspartate Amino Transferase 14 U/L (0-40); Potassium 3.5 mmol/L (3.5-5.1)
[2021-11-21 13:09] LABS: Anion Gap 15.5 (5-19); Carbon Dioxide 21 mmol/L (22-29); Chloride 106 mmol/L (98-107); Glucose 158 mg/dL (65-115); Lipase 62 U/L (13-60); Osmolality Calculated 291 mOsm/kg (285-295); Sodium 139 mmol/L (136-145)
--- NOTE | 2021-11-21 13:44 | PC.SOCIAL ---
Addendum entered by Jenni Thrasher 12/07/21 18:52: Patient had a follow up appointment scheduled for 11.23.21 with urology - patient did attend appointment. Original Note: Urology F/u Message sent to urology requesting a follow up for kidney stone.
[2021-11-21 15:15] LABS: Urine Color Yellow (Yellow)
[2021-11-21 15:16] LABS: Add Urine Microscopic? YES; Bacteria Urine 1+ /hpf; Bilirubin Urine Neg (Negative); Blood Urine 3+ (Negative); Glucose Urine UA Norm (Normal); Ketones Urine 1+ (Negative); Leukocyte Esterase Urine Negative (Negative); Mucus Urine 1+ /hpf; Nitrate Urine Negative (Negative); Protein Urine Neg (Negative); RBC Urine TOO NUMEROUS TO CNT /hpf (0-2); Specific Gravity, Urine 1.015 (1.005-1.030); Squamous Epithelial Cell Urine 0-4 /hpf (0-5); Urine Appearance Cloudy (CLEAR); Urobilinogen Urine Norm (Negative); WBC Urine 0-4 /hpf (0-5); pH Urine 6.5 (5-7)
[2021-11-21 15:17] LABS: Add Urine Culture? Yes
== END 2021-11-21 15:35 | disposition home or self-care (01) ==
PROVIDERS: Emergency Provider Physician Assistant; PCP Family Medicine
DX: N20.0 Calculus of kidney (principal); F17.210 Nicotine dependence, cigarettes, uncomplicated
CPT/HCPCS: 74176; 80053; 81001; 83690; 85025; 87040; 87086; 96361; 96374; 96375; 99284; J1170; J1885; J2270; J2405; J2765; J7030

== ENCOUNTER → 2021-11-23 13:53 | Outpatient (BNVA) | payer OTHER, SELFPAY | PROVIDERS: PCP Family Medicine; Visit Provider Urology | DX: N20.0 Calculus of kidney (principal) | CPT/HCPCS: 74018 ==

== ENCOUNTER 2021-12-07 12:55 | Outpatient (CLI) | payer OTHER, SELFPAY ==
--- NOTE | 2021-12-07 13:16 | XR_ITS ---
WS: [id number] KUB, AP view, 12/07/2021 Clinical Data: calculus Comparison: None. Findings: No abnormal intraabdominal masses are seen. There is no dilatated small bowel or evidence of obstruct ion. There are calcifications overlying both kidneys, but the kidneys are obscured by overlying fecal mate rial and bowel gas. XR/XR KUB [id number] Impression: Bilateral renal calcifications.
== END 2021-12-07 12:56 | disposition home or self-care (01) ==
PROVIDERS: PCP Family Medicine; Visit Provider Urology
DX: N20.9 Urinary calculus, unspecified (principal)
CPT/HCPCS: 74018

== ENCOUNTER 2025-01-23 16:28 | Inpatient (IN) | payer OTHER, SELFPAY ==
--- OUTSIDE RECORDS SUMMARY | 2020-08-08 10:53 | XMS_ITS | Continuity of Care Document ---
Author Organization [facility] , [facility] Address [address] [address] [place] [address] Phone Care Team Providers Care Direct Support Specialist Name Role Phone 1st, Care Unavailable Unavailable [...] Diagnoses Date Provider Providers Copied on Encounter [employer] [facility], [address] [address], [place], [place], [id number] , tel: [phone] [address] [facility] No Information 1 1st Care. [address] [place], [place], [id number], [place]. tel:[phone] [employer] [facility], [address] [address], [place], [place], [id number] , tel: [phone] [address] [facility] No Information 0 Lyle Johnson. [address], [id number], [place]. tel: [phone] Offic/outpt E m Estab Mod [employer] [facility], [address] [address], [place], [place], [id number] , [place] tel: [phone] [address] [facility] Medication (chief complaint) Bipolar 1 disorderPanic attacks 0 Lyle Johnson. [address] [place], [place], [id number], [place]. tel: [phone] Offic/outpt E m Estab Min [employer] [facility], [address] [address], [place], [place], [id number] , tel: [phone] [address] [facility] Follow Up of Laceration (chief complaint) Laceration of right upper arm without complication, initial encounter 9 Elia Travis. [address] [facility] [address], [facility], [place], [place], [id number], . tel:[phone] Offic/outpt E m Estab Low [employer] [facility], [address] [address], [place], [place], [id number] , tel: [phone] [address] [facility] Laceration (chief complaint) AbscessLaceration of right thumb with infection, subsequent encounterPain of right thumb 9 Lexii Jarvis. [address] [place] [address], [id number], [place]. tel:[phone] Offic/outpt E m [facility], [facility], [address] [address], [place], [place], [id number] , [place] tel: [phone] [address] [facility] Follow Up of injury (chief complaint) Local infection of the skin and subcutaneous tissue, unspecifiedLacerat ion of right thumb with infection, subsequent encounterAbscess 9 Lexii Jarvis. [address] [place] [address], [id number], [place]. tel:[phone] Referring Provider: Matheus Carmona, [address] [place] [address], [address] . tel:[phone] Offic/outpt E m [facility] [employer] [facility], [address] [address], [place], [place], [id number] , [place] tel: [phone] [address] [facility] injury (chief complaint) Laceration of right thumb with infection, subsequent encounterLocal infection of the skin and subcutaneous tissue, unspecifiedPain of right thumb 9 Lexii Jarvis. [address] [place] [address], [id number], [place]. tel:[phone] Referring Provider: Matheus Carmona, [address] [place] [address], [address] . tel:[phone] [employer] [facility], [address] [address], [place], [place], [id number] , [place] tel: [phone] [address] [facility] No Information 9 Lexii Jarvis. [address] [place] [address], [id number], [place]. tel:[phone] Offic/outpt E m [facility], [address] [place] [address], [id number] , tel: [phone] [address] [facility] Laceration (chief complaint) Laceration of right thumb without damage to nail, foreign body presence unspecified, subsequent encounter 9 Lexii Jarvis. [address] [place] [address], [id number], . tel:[phone] Offic/outpt E m Estab Low [facility], [address] [place] [address], [id number] , tel: [phone] [address] [facility] Follow Up of Anxiety (chief complaint) Bipolar 1 disorderPanic attacks 9 Lexii Jarvis. [address] [place] [address], [id number], . tel:[phone] Offic/outpt E m New Mod-h [facility], [address] [place] [address], [id number] , tel: [phone] [address] Anxiety (chief complaint)B ehavior (chief complaint)A nxiety (chief complaint) PalpitationsPanic attacksBipolar 1 disorder 9 Lexii Jarvis. [address] [place] [address], [id number], . tel:[phone] Family History Family Member Type Diagnosis Age At Onset No Information Payers Payer name Insurance type Covered constitution party ID Authoranna tibenedicto(s) [facility] [id number] Social History Type Description Quantity Date Captured Comments Alcohol Use Details Unknown Caffeine Use Details Unknown Tobacco Use Status Smoking Status No Information Sex Male Chief Complaint And Reason For Visit No Information Reason For Referral Reason For Referral No Information Plan Of Treatment Date Type Action Status Goal Tobacco cessation counseling completed Referral Ordered: Robert Abdullahi DO -Orthopedic Surgery (related to Pain of right thumb) ordered Referral Referred To: Robert Abdullahi DO [address] [place], [phone] Ordered: Referrals: Orthopedic Surgery. Robert Dasy DO. Evaluate and treat ordered History Of Present Illness Encounter Date Complaint History Of Prese nt Illness Medication patient interste d in changing from zoloft to an anlternate medicationdenies current side effects from seroquelstates he is fatigues taking zoloftdeiesn si or hihas tried multiple medications in the pasthas stopped due to side effects Follow Up of Laceration Follow Up of Lacerat ion (comments) Here today for suture removal right forearm placed on 1219 elsewhere. Healing nicely. Denies complaints. Laceration The patient mile es any fever [...] at the edge of the wound. Laceration (comments) Patient he re for suture removal after injury cutting thumb on a fender at work on March 03, 2019 Laceration Follow Up of Anxiety Follow Up of Anxiety (comments) Patient here for follow-up of panic attacks and bipolar disorder. Feeling improved with ability to sleep for 11 hours last night appetite slowly coming up but still endorses a feeling of fogginess and difficulty concentrating. Never got the Ativan and has not needed it. Behavior Anxiety Anxiety (comments) 38 yo M here [...] months.Denies suicidal homicidal ideations.Endorses difficulty sleeping. 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 Related to Panic attacks Tolerating sertralin e 25 and 50 mg Seroquel nightly as well. Continue this regimen may increase to 50 mg sertraline in the morning after 1 week.May increase to 100 mg Seroquel at night if needed but currently sleeping well and medications seeming to have an effect.Declines psychology evaluation at this time.Plan on follow-up with Dr. Shultz on March 15 or at [facility] to reassess. Related to Bipolar 1 disorder Prior improvement on sertraline in the past [...]
[2025-01-23] VITALS (34 sets, daily range): BP systolic 76–179; BP diastolic 50–129; PULSE 66–113; RESP 14–40; TEMP 36.6; O2SAT 94–100; BMI 26.4
--- OUTSIDE RECORDS SUMMARY | 2025-01-23 16:33 | XMS_ITS | Encounter Summary ---
Author Organization [facility] Address [address] [place] [address] Care Team Providers Care Freight Claim Investigator Name Role Phone Unavailable Primary Care Provider Unavailabl e Encounter Details Date Type Department Care Team (Latest Contact Info) Description 06/24/[address] [facility] Emergency Department [address] 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
--- OUTSIDE RECORDS SUMMARY | 2025-01-23 16:33 | XMS_ITS | Clinical Summary ---
Author Organization [facility] Address [address] 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
--- OUTSIDE RECORDS SUMMARY | 2025-01-23 16:33 | XMS_ITS | Encounter Summary ---
Author Organization [facility] Address [address] [place] [address] Care Team Providers Care Store Assistant Name Role Phone Unavailable Primary Care Provider Unavailabl e Encounter Details Date Type Department Care Team (Latest Contact Info) Description 07/16/2003 Outpatient Historical [facility] [address] [facility] [address] [place] [address] Travon Nolasco MD [address] [place] [address] CERVICALGIA (Primary Dx) Social History Tobacco Use Types Packs/Day Years Used Date Smoking Tobacco: Never Assessed Sex and Gender Information Value Date Recorded Sex Assigned at Not on file 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
--- NOTE | 2025-01-23 16:34 | ECG_ITS ---
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 Measurements Intervals [place] Rate: 63 P: 83 VT: 171 QRS: 81 QRSD: 107 T: 90 QT: 408 QTc: 420 Interpretive Statements SINUS RHYTHM WITH SINUS ARRHYTHMIA MARKED ST ELEVATION, CONSIDER INFERIOR INJURY [MARKED ST ELEVATION W/O NORMALLY INFLECTED T-WAVE IN II/aVF] ACUTE ID No previous ECG available for comparison Electronically Signed On 01-24-2025 18:56:26 CDT by Manolo Ambrose M.D. [email or web address]
--- OUTSIDE RECORDS SUMMARY | 2025-01-23 16:34 | XMS_ITS | Clinical Summary ---
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 Gender Identity Not on file Sexual Orientation Not on file Last Filed Vital Signs Vital Sign Reading Time Taken Comments Blood Pressure 140/90 05/29/2021 8:00 PM INSURANCE ACCOUNT MANAGER Pulse 74 05/29/2021 8:00 PM INSURANCE ACCOUNT MANAGER Temperature 36.2 C (97.2 F) 05/29/2021 7:48 PM INSURANCE ACCOUNT MANAGER Respiratory Rate 19 05/29/2021 8:00 PM INSURANCE ACCOUNT MANAGER Oxygen Saturation 97% 05/29/2021 8:00 PM INSURANCE ACCOUNT MANAGER Inhaled Oxygen Concentration - - Weight 92.5 kg (204 lb) 05/29/2021 7:48 PM INSURANCE ACCOUNT MANAGER Height 182.9 cm (6') 05/29/2021 7:48 PM INSURANCE ACCOUNT MANAGER Body Mass Index 27.67 05/29/2021 7:48 PM INSURANCE ACCOUNT MANAGER Plan of Treatment Health Maintenance Due Date Last Done Comments HPV VACCINES (1 - Male 3-dose series) 1994 DTAP/TDAP/TD VACCINES (1 - Tdap) 1998 HEPATITIS B VACCINES (1 of 3 - 19+ 3-dose series) 03/04 COLORECTAL SCREENING 2024 Colorectal Cancer Screening 2024 FIT-DNA Q 3 years 2024 FIT/FOBT Q 1 year 2024 Flex Sig/CT Colonography Q 5 years 2024 INFLUENZA VACCINE (#1) 2025 Insurance [facility] [id number] POS II
--- OUTSIDE RECORDS SUMMARY | 2025-01-23 16:34 | XMS_ITS | Encounter Summary ---
Author Organization [facility] Address [address] [place] [address] Care Team Providers Care Nurse Wound Name Role Phone Unavailable Primary Care Provider Unavailabl e Encounter Details Date Type Department Care Team (Latest Contact Info) Description 07/16/2003 Outpatient Historical [facility] [address] 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
[2025-01-23] MEDS: heparin 5,000 unit/mL INJ 1 mL 4000 UNIT IVP (16:43)
[2025-01-23] MEDS: ondansetron 2 mg/ML SDV 2 mL 4 MG IVP (16:44)
[2025-01-23] MEDS: morphine 4 mg/mL SDV 1 mL IVP ×3 (16:45→17:04)
[2025-01-23] MEDS: LORazepam 1 MG/0.5 ML injection IVP (16:49)
[2025-01-23] MEDS: midazolam 1 mg/mL INJ 2 mL 2 MG IVP ×2 (16:52→17:10)
--- NOTE | 2025-01-23 16:56 | XRR_ITS ---
PROCEDURE INFORMATION: Exam: XR Chest Exam date and time: 01/23/2025 4:49 PM Age: 44 years old Clinical indication: Pain; Chest pressure; Additional info: Chest pain; Stemi TECHNIQUE: Imaging protocol: Radiologic exam of the chest. Views: 1 view. COMPARISON: CR XR KUB [id number] 12/07/2021 1:15 PM FINDINGS: Lungs: Unremarkable. No consolidation. Pleural spaces: Unremarkable. No pleural effusion. No pneumothorax. Heart/Mediastinum: Unremarkable. No cardiomegaly. Bones/joints: Unremarkable. XR/XR chest 1V portable [id number] IMPRESSION: No acute cardiopulmonary abnormality.
--- NOTE | 2025-01-23 17:00 | PC.NURSE ---
Patient does not want Eva Brown notified of anything. registration notified to remove name from chart.
--- NOTE | 2025-01-23 17:00 | P.HP_ITS ---
Providers/Chief Complaint Admitting Physician: Thai Wilkerson MD/ Cardiology Primary Care Provider: Contreras Kramer MD Chief Complaint: chest pain History of Present Illness Contreras Aponte is a 44 year old male with no significant prior cardiac history has presented with about 1 hour of severe substernal chest pain. He has been having on and off chest discomfort for the last week. Yesterday he felt he was having a anxiety attack. EKG is consistent with acute inferior wall ST elevation RI. Review of Systems Card: Reports: chest pain GI: Reports: nausea and vomiting Medications/Allergies Home Medications ?Medication ?Instructions ?Recorded ?Confirmed ?Last Taken ?Type naproxen 500 mg tablet (Naprosyn) 500 mg PO BID PRN pa in #20 tabs 11/21/21 12/07/21 Unknown Rx ondansetron 4 mg disintegrating 4 mg PO Q8H PRN nausea and 11/21/21 12/07/21 Unknown Rx tablet vomiting #15 tabs tamsulosin 0.4 mg capsule 0.4 mg PO DAILY #20 caps 12/07/21 Unknown Rx hydrocodone 5 mg-acetaminophen 325 1 tab PO Q8H PRN Re nal colic 6 11/23/21 12/07/21 Unknown Rx mg tablet days #18 tabs Allergies Allergy/AdvReac Type Severity Reaction Status Date / Time No Known Allergies Allergy Verified 01/23/25 16:48 PFSH Acute PFSH: Medical History Constipation Memory loss Urolithiasis Multi stone former. Spontaneously passed at age 19. Bilateral renal calculi left ureteral calculi diagnosed November 2021. Calculus of distal left ureter Surgical History History of colonoscopy 11/2021 History of esophagogastroduodenoscopy (EGD) 11/2021 History of placement of ear tubes x8 History of appendectomy 2011 History of umbilical hernia repair 2012 Family History Mother Difficulty breathing Other Anesthesia complication Diabetes Denies family history of CAD (coronary artery disease) Dementia Chronic kidney disease (CKD) Bleeding disorder Cancer Stroke Social History (Reviewed 01/23/25 @ 17:01 by Meghan De León Smoking and tobacco/nicotine status: current every day tobacco/nicotine user Alcohol intake: never Substance/Drug Use: never Lives independently: Yes Household members: spouse Marital status: Current occupational status: employed Vitals/I&O/Wt Last Vital Signs Pulse 85 01/23/25 16:29 Resp 26 H 01/23/25 16:46 BP 171/129 01/23/25 16:29 Pulse Ox 100 01/23/25 16:29 O2 Del Method Room Air 01/23/25 16:29 01/23/25 01/23/25 01/23/25 06:59 14:59 22:59 Intake Total 0 / 0 Balance 0 / 0 Weight last 48 hrs Weight 190 lb Physical Exam Narrative: GENERAL: Patient is alert, awake NECK: No jugular vein distension. [] HEENT: No cyanosis. No icterus. No pallor. [] HEART: Regular S1 and S2. No murmur, rub or gallop. [] LUNGS: Clear to auscultate bilaterally. [] CENTRAL NERVOUS SYSTEM: Grossly nonfocal. [] EXTREMITIES: Lower extremities with no edema bilaterally. A&P Assessment and plan 1. STEMI (ST elevation myocardial infarction): Plan: Patient has presented with acute inferior wall ST elevation RI. Going emergently for coronary angiogram with PCI Has received aspirin, plavix loading doses. Also had heparin bolus We will obtain echocardiogram post procedure PDMP PDMP Reviewed: Not Reviewed Attestations Medical Necessity Statement*: Care expected to cross 2 midnights. Patient has presented with acute inferior wall ST elevation RI and going for emergent coronary angiogram with PCI Coding Level of Care Code Acute Code for [facility] Diagnoses STEMI (ST elevation myocardial infarction) I21.3
[2025-01-23 17:01] LABS: Troponin(5th) Baseline 12 ng/L (0-15)
--- NOTE | 2025-01-23 17:30 | PC.NURSE ---
Assisted Dr Carreon in labor delivery rn for sedation and intubation. Etomidate 20mg and vecuronium 10mg given IVP per verbal order Dr Carreon prior to immediate intubation.
--- NOTE | 2025-01-23 17:34 | ECG_ITS ---
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 Measurements Intervals [place] Rate: 77 P: 44 DC: 180 QRS: 70 QRSD: 109 T: 89 QT: 396 QTc: 451 Interpretive Statements SINUS RHYTHM WITH OCCASIONAL VENTRICULAR PREMATURE COMPLEXES INFERIOR MYOCARDIAL INFARCTION , POSSIBLY ACUTE [40+ ms Q WAVE AND/OR ST/T ABNORMALITY IN II/aVF] ST ELEVATION, CONSIDER ANTEROLATERAL INJURY [MARKED ST ELEVATION W/O NORMALLY INFLECTED T-WAVE IN V3-V6] ACUTE MT Compared to ECG 01/23/2025 16:32:06 Ventricular premature complex(es) now present Sinus arrhythmia no longer present Myocardial infarct finding still present ST (T wave) deviation still present Electronically Signed On 01-24-2025 19:08:17 CDT by Manolo Ambrose M.D. [id number]
[2025-01-23 17:36] LABS: Hematocrit 49.0 % (37-53); Hemoglobin 16.80 g/dL (11.27-16.99); Mean Corpuscular HGB Conc 34.3 g/dL (30-55); Mean Corpuscular Hemoglobin 30.8 pg (27-33); Mean Corpuscular Volume 89.9 fl (82-101); Nucleated Red Blood Cells % 0 %; Platelet Count 224 10^3/cmm (157-399); Red Blood Count 5.45 10^6/uL (3.85-5.65); White Blood Count 12.87 10^3/uL (3.29-11.43)
--- NOTE | 2025-01-23 17:44 | ED_ITS ---
HPI - Chest Pain 2 General: Chief Complaint: Chest Pain Stated Complaint: chest pain Time Seen by Provider: 01/23/25 16:34 History of Present Illness: 44-year-old male presents to the emergen cy room with chest pain nausea and vomiting that began about an hour prior to arrival. Patient states he is intermittently had chest pain for the last 1 to 2 weeks he thought it was more indigestion was not nearly as intense of this so he did not stop sought out any evaluation for it. He is a smoker he has no known history of coronary artery disease and he is not diabetic. Pain radiating to the left arm and neck and into his back Associated symptoms: Deny abdominal pain, dyspnea or fever(s) Related Data Previous Rx's ?Medication ?Instructions ?Recorded naproxen 500 mg tablet (Naprosyn) 500 mg PO BID PRN pa in #20 tabs 11/21/21 ondansetron 4 mg disintegrating 4 mg PO Q8H PRN nausea and 11/21/21 tablet vomiting #15 tabs tamsulosin 0.4 mg capsule 0.4 mg PO DAILY #20 caps hydrocodone 5 mg-acetaminophen 325 1 tab PO Q8H PRN Re nal colic 6 11/23/21 mg tablet days #18 tabs Allergies Allergy/AdvReac Type Severity Reaction Status Date / Time No Known Allergies Allergy Verified 01/23/25 16:48 Review of Systems 2 Const: Denies: fever(s) or chills Card: Reports: chest pain Resp: Denies: dyspnea GI: Denies: abdominal pain : Denies: dysuria, urinary frequency or urinary urgency Musc: Denies: neck pain or back pain Skin/Breast: Denies: rash PFSH ED 2 PFSH: Medical History Constipation Memory loss Urolithiasis Multi stone former. Spontaneously passed at age 19. Bilateral renal calculi left ureteral calculi diagnosed November 2021. Calculus of distal left ureter Surgical History History of colonoscopy 11/2021 History of esophagogastroduodenoscopy (EGD) 11/2021 History of placement of ear tubes x8 History of appendectomy 2012 History of umbilical hernia repair 2012 Family History Mother Difficulty breathing Other Anesthesia complication Diabetes Denies family history of CAD (coronary artery disease) Dementia Chronic kidney disease (CKD) Bleeding disorder Cancer Stroke Social History Smoking and tobacco/nicotine status: current every day tobacco/nicotine user Alcohol intake: never Substance/Drug Use: never Lives independently: Yes Household members: spouse Marital status: Current occupational status: employed Physical Exam 2 Const: GENERAL APPEARANCE: cooperative ORIENTATION/CONSCIOUSNESS: Yes awake, Yes oriented to person, Yes oriented to place and Yes oriented to time HENMT: COMMON NORMALS: normocephalic, atraumatic and hearing grossly normal bilaterally HEAD & SCALP: normocephalic and atraumatic Resp: COMMON NORMALS: normal respiratory effort, No retractions, No use of accessory muscles and clear to auscultation bilaterally AUSCULTATION: clear to auscultation bilaterally Cardio: COMMON NORMALS: regular rate, regular rhythm and No murmurs present (Cardio) RATE: regular rate RHYTHM: regular rhythm GI: COMMON NORMALS: Soft to palpation and No hepatosplenomegaly present A USCULTATION: Yes normoactive bowel sounds PALPATION: Yes Soft to palpation, No Tenderness to palpation present (GI), No Guarding due to palpation present (GI) and Yes No hepatosplenomegaly present Extremity: COMMON NORMALS: normal to inspection, capillary refill normal, no clubbing, cyanosis or edema, no calf tenderness and no pedal edema Neuro: SENSORIUM/ORIENTATION: Yes oriented to person, Yes oriented to place and Yes oriented to time Skin: COMMON NORMALS: no rashes or lesions noted GENERAL SKIN EXAM: no rashes or lesions noted Procedures Intubation sedative: Etomidate Mg Given: 20 paralytic: Vecuronium Mg Given: 10 Laryngoscope: fiber optic video scope ET Tube Size: 8 ET Tube Uncuffed: No Tube Secured Depth (cm): 23 Tube Secured Location: teeth Tube Placement Confirmation: visualized tube passing through cords, equal breath sounds bilaterally and confirmation by capnometry Patient Tolerated Procedure: well Intubation Complications: none Additional Comments: Propofol drip initiated to maintain sedation Course 2 Vital Signs: Vital signs: Vital Signs Pulse Rate 77 01/23/25 17:11 Respiratory Rate 16 01/23/25 17:08 Blood Pressure 177/99 01/23/25 17:11 Pulse Oximetry 95 01/23/25 17:11 Oxygen Delivery Me thod Nasal Cannula 01/23/25 17:04 Oxygen Flow Rate 2 01/23/25 16:57 MDM - Chest Pain Medical Decision Making Initial EKG shows acute ST elevation in the inferior leads with reciprocal ST depression follow-up EKG shows he had now converted to ST elevation in the inferior leads as well as V3 [address] depression in 1 and aVL. STEMI alert was called from triage. Patient was writhing in pain difficult to manage in the resuscitation room. He was given morphine and 4 mg increments for a total of 12 he was also given a milligram of Ativan he continued to have pain severe anxiety. He was then given to 2 mg doses of Versed which allowed for enough sedation for him to rest comfortably. His vital signs remained stable his blood pressure is moderately hypertensive but his heart rate remained above 70. He was also placed on 2 of oxygen he was given heparin Plavix and aspirin shortly after arrival as well. Dr. Wilkerson has seen the patient in the emergency room and they are taking him directly to the [facility]. Shortly after the patient arrived in the [facility] they are having difficulty managing him he was still somewhat combative could not remain still I was called to respond to the [facility] to intubate the patient. Chemistry is not yet back he was given 20 mg of etomidate followed by 10 mg of vecuronium he was intubated using fiberoptic laryngoscope without difficulties and 8 O2 which was placed at 23 cm she had good color change. Tube was secured in place. He is got good auscultation oxygen sats are good we will verify placement once he leaves the [facility]. Medical Records I reviewed the patient's medical records. Lab Data I reviewed the patient's lab results. 01/23/25 16:39 01/23/25 16:39 Laboratory Results WBC 12.87 10^3/uL (3.29-11.43) H 01/23/25 16:39 RBC 5.45 10^6/uL (3.85-5.65) 01/23/25 16:39 Hgb 16.80 g/dL (11.27-16.99) 01/23/25 16:39 Hct 49.0 % (37-53) 01/23/25 16:39 MCV 89.9 fl (82-101) 01/23/25 16:39 MCH 30.8 pg (27-33) 01/23/25 16:39 MCHC 34.3 g/dL (30-55) 01/23/25 16:39 RDW 13.4 % (12.1-15.1) 01/23/25 16:39 Plt Count 224 10^3/cmm (157-399) 01/23/25 16:39 MPV 11.0 fL (7.4-10.4) H 01/23/25 16:39 Neut % (Auto) 72.2 % 01/23/25 16:39 Lymph % (Auto) 19.2 % 01/23/25 16:39 [place] % (Auto) 6.8 % 01/23/25 16:39 Eos % (Auto) 0.9 % 01/23/25 16:39 Baso % (Auto) 0.6 % 01/23/25 16:39 Neut # (Auto) 9.28 10^3/uL (1.8-7.7) H 01/23/25 16:39 Lymph # (Auto) 2.5 10^3/uL (0.8-4.8) 01/23/25 16:39 [place] # (Auto) 0.9 10^3/uL (0.2-0.9) 01/23/25 16:39 Eos # (Auto) 0.1 10^3/uL (0.0-0.8) 01/23/25 16:39 Baso # (Auto) 0.1 10^3/uL (0.0-0.1) 01/23/25 16:39 Nucleated RBC % (auto) 0 % 01/23/25 16:39 Nucleated RBCs # 0.0 /100WBC 01/23/25 16:39 Troponin T Baseline 12 ng/L (0-15) 01/23/25 16:39 All radiology interpretation(s) finalized by discharge Discharge Plan Discharge Patient Disposition: Admitted As Inpatient Clinical Impression: STEMI (ST elevation myocardial infarction) Condition: Stable Coding Level of Care Code ED Irrigation Flume Layer for Lucita Mora
[2025-01-23 17:46] LABS: Alanine Aminotransferase 17 U/L (0-41); Albumin Level 4.2 g/dL (3.5-5.2); Alkaline Phosphatase 87 U/L (40-130); Blood Urea Nitrogen 12 mg/dL (6-20); Calcium 9.5 mg/dL (8.5-10.5); Carbon Dioxide 21 mmol/L (22-29); Chloride 105 mmol/L (98-107); Creatinine Clr Calc Pharmacy 116.7755; Globulin 2.9 g/dL (1.3-4.6); Glucose 202 mg/dL (65-115); Osmolality Calculated 304 mOsm/kg (285-295); Sodium 144 mmol/L (136-145); Total Protein 7.1 g/dL (6.6-8.7)
[2025-01-23 17:48] LABS: Anion Gap 22.2 (5-19); Aspartate Amino Transferase 18 U/L (0-40); Potassium 4.2 mmol/L (3.5-5.1)
--- NOTE | 2025-01-23 18:34 | P.PCN_ITS ---
Procedure Note: Date of procedure: 01/23/25 Pre-procedure diagnosis: STEMI Post-procedure diagnosis: other (Total thrombotic occlusion of proximal RCA s/p PCI with 2 stents) Procedure: Total thrombotic occlusion of proximal RCA s/p PCI with 2 stents. Patient could not stay still secondary to chest pain and started having severe shortness of breath and patient kept trying to sit up at the beginning of the procedure. He was intubated. Dual antiplatelet therapy with aspirin and plavix for atleast 1 year High intensity statin therapy We will consult medicine team for management of vent and medical issues Performing Provider: Thai Wilkerson Complications: None Condition: critical Disposition: ICU Coding Level of Care Code Acute Code for [facility]
--- NOTE | 2025-01-23 18:34 | ECG_ITS ---
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 Measurements Intervals [place] Rate: 80 P: 51 WV: 160 QRS: -41 QRSD: 108 T: 78 QT: 382 QTc: 442 Interpretive Statements SINUS RHYTHM LEFT AXIS DEVIATION [QRS AXIS < -30] POSSIBLE RIGHT VENTRICULAR CONDUCTION DELAY [RSR (QR) IN V1/V2] ST-T changes in the inferior lead, suggesting possible recent inferior wall PR Compared to ECG 01/23/2025 16:32:06 Left-axis deviation now present Sinus arrhythmia no longer present ST (T wave) deviation no longer present Electronically Signed On 01-24-2025 19:07:47 CDT by Manolo Ambrose M.D. [id number] [id number]
[2025-01-23] MEDS: fentaNYL 1,000 MCG/100 ML BAG 10 MCG IV (18:48)
[2025-01-23 19:15] LABS: PCP Screen Urine Negative (Negative)
--- NOTE | 2025-01-23 19:19 | PC.NURSE ---
in laborer [place] with pt to monitor diprivan that was started in er for sedation of intubated stemi on vent .. during cath procedure
[2025-01-23 19:55] LABS: Troponin 5 2HR 1881 ng/L (0-15); Troponin 5 2HR Delta 1869 ABS# (0-10)
--- NOTE | 2025-01-23 20:24 | P.CONIM_ITS ---
Providers/Reason For Consult 2 Consulting Physician/Specialty*: Cardiology Reason for Consult*: Intubated, mechanical ventilation Attending Physician: Thai Wilkerson M.D Primary Care Provider: Contreras Kramer MD History of Present Illness History of Present Illness Contreras Aponte is a 44 year old male no significant past medical history, who presents [facility] for chest pain, patient presented with acute inferior wall STEMI, status post coronary angiography, proximal RCA status post 2 stents, due to persistent chest pain and shortness of breath, patient was intubated at the beginning of the procedure, currently is intubated, sedated on mechanical ventilation, 50% 502, MAP is greater than 65, he is on propofol and fentanyl for sedation, Review of Systems 2 General: Reports: ROS unobtainable due to endotracheal tube Medications/Allergies Home Medications ?Medication ?Instructions ?Recorded ?Confirmed ?Last Taken ?Type naproxen 500 mg tablet (Naprosyn) 500 mg PO BID PRN pa in #20 tabs 11/21/21 12/07/21 Unknown Rx ondansetron 4 mg disintegrating 4 mg PO Q8H PRN nausea and 11/21/21 12/07/21 Unknown Rx tablet vomiting #15 tabs tamsulosin 0.4 mg capsule 0.4 mg PO DAILY #20 caps 12/07/21 Unknown Rx hydrocodone 5 mg-acetaminophen 325 1 tab PO Q8H PRN Re nal colic 6 11/23/21 12/07/21 Unknown Rx mg tablet days #18 tabs Allergies Allergy/AdvReac Type Severity Reaction Status Date / Time No Known Allergies Allergy Verified 01/23/25 16:48 Current Medications Generic Name Dose Route Start Last Admin Trade Name Freq PRN Reason Stop Dose Admin Fentanyl 1,000 mcg in 100 mls @ 0 mls/hr 01/23/25 18:45 01/23/25 18:48 Sublimaze IV 100 mcg/hr .Q0M JASSI 10 mls/hr Protocol Administration Per Protocol PFSH Acute 2 PFSH: Medical History Constipation Memory loss Urolithiasis Multi stone former. Spontaneously passed at age 19. Bilateral renal calculi left ureteral calculi diagnosed November 2021. Calculus of distal left ureter Surgical History History of colonoscopy 11/2021 History of esophagogastroduodenoscopy (EGD) 11/2021 History of placement of ear tubes x8 History of appendectomy 2011 History of umbilical hernia repair 2011 Family History Mother Difficulty breathing Other Anesthesia complication Diabetes Denies family history of CAD (coronary artery disease) Dementia Chronic kidney disease (CKD) Bleeding disorder Cancer Stroke Social History Smoking and tobacco/nicotine status: current every day tobacco/nicotine user Alcohol intake: never Substance/Drug Use: never Lives independently: Yes Household members: spouse Marital status: Current occupational status: employed Vitals/I&O/Wt Last Vital Signs Pulse 77 01/23/25 17:11 Resp 14 01/23/25 20:00 BP 177/99 01/23/25 17:11 Pulse Ox 97 01/23/25 20:00 O2 Del Method Nasal Cannula 01/23/25 17:04 O2 Flow Rate 2 01/23/25 16:57 FiO2 40 01/23/25 20:00 01/23/25 01/23/25 01/23/25 06:59 14:59 22:59 Intake Total 0 / 0 Balance 0 / 0 Weight last 48 hrs Weight 86.183 kg Physical Exam 2 Const: COMMON NORMALS: no acute distress HENMT: COMMON NORMALS: normocephalic HEAD & SCALP: normocephalic Eye: COMMON NORMALS: Equal, round and reactive pupils present PUPIL: Yes Equal, round and reactive pupils present Neck/C-Spine: COMMON NORMALS: no JVD Resp: COMMON NORMALS: normal respiratory effort, No retractions, No use of accessory muscles and clear to auscultation bilaterally AUSCULTATION: clear to auscultation bilaterally Cardio: COMMON NORMALS: no JVD, regular rate, regular rhythm, S1 normal heart sound present and S2 normal heart sound present RATE: regular rate RHYTHM: regular rhythm HEART SOUNDS: S1 normal heart sound present and S2 normal heart sound present GI: COMMON NORMALS: Normal to inspection, nondistended, normoactive bowel sounds present and non-tender : OTHER: Right groin, catheter in place Extremity: COMMON NORMALS: no calf tenderness and no pedal edema Psych: OTHER: Currently, intubated, sedated, mechanical ventilation, Data 01/23/25 16:39 01/23/25 16:39 A&P Assessment and plan 1. STEMI (ST elevation myocardial infarction): 2. Acute hypoxic respiratory failure: Plan: ST elevation myocardial infarction - Status post PCI, RCA, 2 stents - On aspirin, statin, Plavix - Cardiac echo Acute hypoxic respiratory failure - Currently intubated, sedated, mechanical ventilation - Fentanyl for sedation - Propofol for sedation - Protonix for GI prophylaxis - Lovenox for DVT prophylaxis currently on hold - Will consider dose of Lasix in the a.m. Full code SCDs for DVT prophylaxis PDMP PDMP Reviewed: Not Reviewed Consult Attestations 2 Medical Necessity Statement: Patient requires hospitalization, inpatient, greater than 2 midnights, for NSTEMI, acute hypoxic respiratory failure Coding Level of Care Code Critical Care >/= 30 minutes Critical care time (in minutes): 40 The high probability of a clinically significant, sudden or life threatening deterioration, as referenced in this documentation, required my full and direct attention, intervention and personal management. The critical care time shown is in addition to time spent performing any reported separately billable procedures and includes the following: [x] Data and vital sign review and interpretation [x ] Patient assessment, examination and intervention [x] Medication orders and management [x] Patient/Family updates as able [x] Care Coordination and Documentation. Diagnoses STEMI (ST elevation myocardial infarction) I21.3 Acute hypoxic respiratory failure J96.01
--- NOTE | 2025-01-23 20:26 | XRR_ITS ---
PROCEDURE INFORMATION: Exam: XR Chest Exam date and time: 01/23/2025 8:51 PM Age: 44 years old Clinical indication: Device placement; Ett placement (vent status); Prior surgery; Surgery date: 6+ months; Surgery type: Appendectomy; Et tube and og tube placement confirmation; Additional info: Covnfirm et tube placement TECHNIQUE: Imaging protocol: Radiologic exam of the chest. Views: 1 view. COMPARISON: CR XR chest 1V portable [id number] 01/23/2025 4:49 PM FINDINGS: Tubes, catheters and devices: ET tube in place within the trachea with tip just below the thoracic inlet approximately 6.8 cm above the kumar. OG tube in place extending into the gastric body. Monitor leads and defibrillator pads project over the chest. Lungs: Low lung volumes with mild bibasilar atelectasis. Pleural spaces: No significant costophrenic angle blunting. No pneumothorax. Heart/Mediastinum: Heart size is stable. Bones/joints: No acute osseous abnormality. XR/XR chest 1V portable [id number] IMPRESSION: 1. ET tube in place within the trachea with tip just below the thoracic inlet approximately 6.8 cm above the kumar. 2. OG tube in place extending into the gastric body. 3. Low lung volumes with mild bibasilar atelectasis.
[2025-01-23] MEDS: propofol 1,000 MG/100 ML INJ 31.03 MG IV (20:52)
--- NOTE | 2025-01-23 22:12 | PC.NURSE ---
Propofol: Patient arrived from laboratory helper with propofol running at 70.
--- NOTE | 2025-01-23 22:34 | ECG_ITS ---
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 Measurements Intervals [place] Rate: 68 P: 47 LA: 155 QRS: -51 QRSD: 110 T: 0 QT: 393 QTc: 418 Interpretive Statements SINUS RHYTHM POSSIBLE RIGHT VENTRICULAR CONDUCTION DELAY [RSR (QR) IN V1/V2] Compared to ECG 01/23/2025 20:27:30 Left-axis deviation no longer present Electronically Signed On 01-24-2025 19:04:08 CDT by Manolo Ambrose M.D. [email or web address] [id number]
[2025-01-23] MEDS: norepinephrine 4 MG/250 ML BAG 7.5 MG IV (23:00)
--- NOTE | 2025-01-23 23:21 | XRR_ITS ---
PROCEDURE INFORMATION: Exam: XR Chest Exam date and time: 01/23/2025 11:20 PM Age: 44 years old Clinical indication: Device placement; Ett placement (vent status); Check S/P ett advancement; Additional info: Et placement TECHNIQUE: Imaging protocol: Radiologic exam of the chest. Views: 1 view. COMPARISON: CR (CHEST, ) 01/23/2025 8:51 PM FINDINGS: Tubes, catheters and devices: ET tube in place within the trachea with tip just above the medial clavicles approximately 5 cm above the kumar. OG tube extends into the stomach and below the lower edge of the x-ray. Monitor leads and defibrillator pads project over the chest. Lungs: Low lung volumes with increased right basilar atelectasis and volume loss. Pleural spaces: No significant costophrenic angle blunting. No pneumothorax. Heart/Mediastinum: Heart size is stable. Obscured right cardiac border. Diaphragm: Right hemidiaphragm elevation. Bones/joints: No acute osseous abnormality. XR/XR chest 1V portable [id number] IMPRESSION: 1. ET tube in place within the trachea with tip just above the medial clavicles approximately 5 cm above the kumar. 2. Low lung volumes with increased right basilar atelectasis and volume loss. Consider possible mucous plugging.
[2025-01-23 23:26] LABS: Troponin 5 6HR 3602 ng/L (0-15); Troponin 5 6HR Delta 3590 ng/L (0-12)
--- NOTE | 2025-01-23 23:38 | PC.NURSE ---
Hypotentsion: Blood pressures trending down, sedation titrated down but blood pressures continue to trend down, Dr. Ferrara notified blood pressure was 76/53 with a map of 60, new order received for levophed.
--- NOTE | 2025-01-23 23:41 | PC.NURSE ---
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 Ambrose called updated of vitals and that levophed had been started. Dr. 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
[2025-01-24] VITALS (75 sets, daily range): BP systolic 81–120; BP diastolic 51–77; PULSE 60–83; RESP 14–15; TEMP 36.7; O2SAT 88–100
[2025-01-24] MEDS: propofol 1,000 MG/100 ML INJ 25.86 MG IV ×4 (00:01→22:22)
[2025-01-24 00:11] LABS: Lactic Sepsis W/Reflex 1.2 mmol/L (0.5-2.2)
[2025-01-24 00:16] LABS: Anion Gap 14.8 (5-19); Blood Urea Nitrogen 12 mg/dL (6-20); Calcium 8.7 mg/dL (8.5-10.5); Carbon Dioxide 24 mmol/L (22-29); Chloride 107 mmol/L (98-107); Creatinine Clr Calc Pharmacy 150.1400; Glucose 102 mg/dL (65-115); Magnesium 2.1 mg/dL (1.7-2.3); Osmolality Calculated 294 mOsm/kg (285-295); Potassium 3.8 mmol/L (3.5-5.1); Sodium 142 mmol/L (136-145)
[2025-01-24 00:21] LABS: Glucose Urine UA 1+ (Normal); Nitrate Urine Negative (Negative)
[2025-01-24 00:21] LABS: Procalcitonin 0.10 ng/mL (0-0.5)
[2025-01-24 00:24] LABS: Add Urine Microscopic? YES
[2025-01-24 00:49] LABS: Specific Gravity, Urine 1.066 (1.005-1.030)
[2025-01-24 01:20] LABS: Partial Thromboplastin Time 26.3 SECONDS (23.9-36.7)
[2025-01-24] MEDS: fentaNYL 1,000 MCG/100 ML BAG 10 MCG IV ×2 (01:50→09:48)
--- NOTE | 2025-01-24 03:24 | PC.NURSE ---
Sheat Pull: Sheath pulled at 0246, pressure held for 20 minutes, not bleeding or hematoma at this time.
[2025-01-24 04:32] LABS: Hematocrit 42.4 % (37-53); Hemoglobin 14.10 g/dL (11.27-16.99); Mean Corpuscular HGB Conc 33.3 g/dL (30-55); Mean Corpuscular Hemoglobin 30.9 pg (27-33); Mean Corpuscular Volume 93.0 fl (82-101); Nucleated Red Blood Cells % 0 %; Platelet Count 204 10^3/cmm (157-399); Red Blood Count 4.56 10^6/uL (3.85-5.65); White Blood Count 10.69 10^3/uL (3.29-11.43)
[2025-01-24 04:51] LABS: Anion Gap 14.7 (5-19); Blood Urea Nitrogen 10 mg/dL (6-20); Calcium 8.5 mg/dL (8.5-10.5); Carbon Dioxide 24 mmol/L (22-29); Chloride 108 mmol/L (98-107); Creatinine Clr Calc Pharmacy 131.3725; Glucose 128 mg/dL (65-115); Osmolality Calculated 297 mOsm/kg (285-295); Potassium 3.7 mmol/L (3.5-5.1); Sodium 143 mmol/L (136-145)
[2025-01-24] MEDS: FUROsemide 10 mg/mL SDV 4mL 40 MG IVP (05:19)
[2025-01-24] MEDS: propofol 1,000 MG/100 ML INJ 20.68 MG IV (08:18)
[2025-01-24] MEDS: pantoprazole 40 mg SDV IVP (08:51)
[2025-01-24] MEDS: norepinephrine 4 MG/250 ML BAG 30 MG IV ×2 (09:45→17:54)
--- NOTE | 2025-01-24 09:59 | PC.NURSE ---
weaning mediction at this time to awaken and attempt to extubate this am . monitor vital signs as progress
--- NOTE | 2025-01-24 10:20 | XRR_ITS ---
PROCEDURE INFORMATION: Exam: XR Chest Exam date and time: 01/24/2025 11:51 AM Age: 44 years old Clinical indication: Other: Vent maint; Prior surgery; Surgery date: Post-operative (0-2 days); Surgery type: Cardiac stent x 2 yesterday; Additional info: Stemi yesterday with 2 cardiac stents placed; Lung eval for possible extubation TECHNIQUE: Imaging protocol: Radiologic exam of the chest. Views: 1 view. COMPARISON: CR (CHEST, ) 01/23/2025 11:20 PM FINDINGS: Lungs: Atelectasis or infiltrate at the right lung base. Pleural spaces: Unremarkable. No pleural effusion. No pneumothorax. Heart/Mediastinum: No change in the heart or mediastinum. Bones/joints: Unremarkable. Other findings: Stable life-support lines. XR/XR chest 1V portable [id number] IMPRESSION: Stable atelectatic changes at the right lung base.
--- NOTE | 2025-01-24 10:21 | P.PN_ITS ---
Subjective 2 Subjective: Patient had acute inferior wall ST elevation IL yesterday. Successful revascularization of RCA with 2 stents. Currently intubated Vitals/I&O/Wt Last Vital Signs Temp 98.0 F 01/24/25 05:22 Pulse 66 01/24/25 09:30 Resp 14 01/24/25 08:00 BP 93/62 01/24/25 09:30 Pulse Ox 100 01/24/25 08:45 O2 Del Method Mechanical Ventilation 01/23/25 20:19 O2 Flow Rate 2 01/23/25 16:57 FiO2 40 01/24/25 08:00 01/23/25 01/24/25 01/24/25 22:59 06:59 14:59 Intake Total 0 / 0 934.328 / 934.328 419.082 / 419.082 Output Total 900 / 900 Balance 0 / 0 34.328 / 34.328 419.082 / 419.082 Weight last 48 hrs Weight 176 lb Weight 190 lb Physical Exam 2 Narrative: GENERAL: Patient is intubated and sedated. NECK: No jugular vein distension. [] HEENT: No cyanosis. No icterus. No pallor. [] HEART: Regular S1 and S2. No murmur, rub or gallop. [] LUNGS: Diminished air entry bilaterally CENTRAL NERVOUS SYSTEM: Grossly nonfocal. [] EXTREMITIES: Lower extremities with no edema bilaterally. Urinary Catheter Management: Bird: Cath Placed During This Visit: yes Reason for Continuing Indwelling Catheter: Perioperative Use in Selected Surgeries Urinary Catheter Date of Insertion: 01/23/25 Urinary Catheter Time of Insertion: 19:50 Data 01/24/25 03:30 01/24/25 03:30 A&P Assessment and plan 1. STEMI (ST elevation myocardial infarction): 2. Acute hypoxic respiratory failure: Plan: Patient atrial fibrillation proximal RCA status post PCI with 2 stents. Is requiring Levophed. Continue aspirin and Plavix. As brief episodes of nonsustained VT. Once patient is extubated and off pressors, will start low- dose beta-itzel. Medicine team is onboard for vent management. Appreciate recommendations ECHO shows mild LV dysfunction PDMP PDMP Reviewed: Not Reviewed Attestations 2 Medical Necessity Statement*: Care expected to cross 2 midnights. Patient had STEMI and had revascularization of RCA with 2 stents. Currently intubated Coding Level of Care Code Acute Code for [facility] Fwd Diagnoses STEMI (ST elevation myocardial infarction) I21.3 Acute hypoxic respiratory failure J96.01
[2025-01-24 10:49] LABS: Estmated Average Glucose 103; Hemoglobin A1C 5.2 % (4.0-6.0)
[2025-01-24 10:51] LABS: ABG PCO2 42.3 mmHg (35-45); ABG PH Result 7.40 (7.35-7.45); Alveolar-Arterial Oxygen Gradi 16.4 mmHg (5-10); Arterial Blood Gas Hematocrit 45.4 % (42-52); Blood Gas Allen Test Pos; Blood Gas Operator Identificat MONRO; Blood Gas Sample Site Radial, right; Blood Gas Sample Type Arterial; Blood Gas Tidal Volume 0.50; Carboxyhemoglobin 0.9 %THgb (0.4-20.1); Glucose Level-ABG 116.0 mg/dL (70-115); HCO3 ABG 26.2 mmol/L (22-26); Ionized Calcium Level - ABG 1.2 mmol/L (1.1-1.4); Methemoglobin 0.1 % (0.4-1.5); Oxygen Saturation ABG 98.6; PEEP 5.0 cmH20; PO2 ABG 107.0 mmHg (80.0-100.0); PO2 FiO2 Ratio Arterial Blood 267; Potassium Level - ABG 3.8 mmol/L (3.5-5.0); Sodium Level - ABG 143.0 mmol/L (131-143)
[2025-01-24 11:03] LABS: Procalcitonin 0.10 ng/mL (0-0.5); Thyroid Stimulating Hormone 3.44 uIU/mL (0.27-4.20); Vitamin B12 920 pg/mL (232-1245)
[2025-01-24 11:14] LABS: Iron 35 ug/dL (59-158); Total Iron Binding Capacity 205 mcg/dl; Unsaturated Iron Binding 170 ug/dL (112-347)
--- NOTE | 2025-01-24 12:00 | PC.NURSE ---
while attempting to wake pt for extubation became extremely agitated and pulling at restraints and kicking and sitting straight up in bed family at bedside attempt to calm pt but increased agitation noted , moving all over bed , increase in pvc noted dr marv and placed back on sedation at this time
[2025-01-24] MEDS: propofol 1,000 MG/100 ML INJ 15.51 MG IV (13:46)
--- NOTE | 2025-01-24 14:44 | P.PN_ITS ---
Subjective 2 Subjective: Admitted overnight. Underwent PCI. Currently on mechanical ventilation with FiO2 40%, tidal volume 400 with PEEP of 5. Currently on Levophed of 8 being weaned down. Appreciate urine output. Blood pressure soft. Getting Cheetah examination. Seen with family at bedside Vitals/I&O/Wt Last Vital Signs Temp 98.0 F 01/24/25 05:22 Pulse 62 01/24/25 14:00 Resp 14 01/24/25 12:05 BP 85/58 01/24/25 14:00 Pulse Ox 100 01/24/25 14:00 O2 Del Method Mechanical Ventilation 01/23/25 20:19 O2 Flow Rate 2 01/23/25 16:57 FiO2 35 01/24/25 12:05 01/23/25 01/24/25 01/24/25 22:59 06:59 14:59 Intake Total 0 / 0 934.328 / 502.038 6556.163 / 2484.163 Output Total 900 / 900 1000 / 1000 Balance 0 / 0 34.328 / 34.328 1484.163 / 1484.163 Weight last 48 hrs Weight 79.832 kg Weight 86.183 kg Physical Exam 2 Narrative: General: Intubated, sedated HEENT: PERRLA, pupils bilaterally equal and reactive Chest: Normal vesicular breath sounds, no added sounds, equal good air entry bilaterally CVS: S1-S2 regular, no murmurs, no tachycardia, no gallops, no rubs Abdomen: Soft, nontender, no organomegaly, bowel sounds present Neuro: No focal deficits, no facial deformity, AO x3, power 5/5 in all limbs Urinary Catheter Management: Bird: Cath Placed During This Visit: yes Reason for Continuing Indwelling Catheter: Perioperative Use in Selected Surgeries Urinary Catheter Date of Insertion: 01/23/25 Urinary Catheter Time of Insertion: 19:50 Data 01/24/25 03:30 01/24/25 03:30 A&P Assessment and plan 1. STEMI (ST elevation myocardial infarction): Post PCI to RCA. Continue with DAPT, statin. Check A1c, lipid panel. Appreciate echocardiogram. Hold off on beta-itzel given soft blood pressures. 2. Acute hypoxic respiratory failure: Currently on mechanical ventilation. Could not tolerate extubation because of agitation. Oxygen supplementation keeping saturation over 88%. Daily ABG, chest x-ray. Continue sedation with propofol and fentanyl. Will try to wean sedation in next 24 hours for trial of extubation in a.m. tomorrow. 3. Ischemic cardiomyopathy: Echocardiogram done shows EF of 45 to 50% with severe hypokinesia of inferior lateral and inferior yusuf, hypokinetic RV. MR. 4. Acute systolic congestive heart failure: Currently euvolemic. Continue with fluids. Watch for fluid overload. Plan: Shock: Keep mean artery pressure 65. Cheetah examination shows patient being fluid responsive. Will plan for 2 L IV fluid bolus. Continue with NS at 100 cc/h. Wean Levophed accordingly. Heparin for DVT prophylaxis Protonix for PUD prophylaxis N.p.o. PDMP PDMP Reviewed: Not Reviewed Attestations 2 Medical Necessity Statement*: As per primary team Critical Care Time: The high probability of a clinically significant, sudden or life threatening deterioration of the patient's [cardiac, pulmonary] system(s) required my full and direct attention, intervention and personal management. The critical care time is as shown. This time is in addition to time spent performing any reported procedures but includes the following: [x] Data and vital sign review and interpretation [x] Patient assessment, examination and intervention [x] Documentation [x] Medication orders and management Critical Care Time (min): 75 Coding Level of Care Code Critical Care >/= 30 minutes Critical care time (in minutes): 75 The high probability of a clinically significant, sudden or life threatening deterioration, as referenced in this documentation, required my full and direct attention, intervention and personal management. The critical care time shown is in addition to time spent performing any reported separately billable procedures and includes the following: [x] Data and vital sign review and interpretation [x ] Patient assessment, examination and intervention [x] Medication orders and management [x] Patient/Family updates as able [x] Care Coordination and Documentation. Other Coding Information This patient has a high probability of clinically significant, sudden or life threatening deterioration of the patient's (neurological/pulmonary/cardiac/renal/ID/endocrine) systems required my full, direct attention, the highest level of physician preparedness for urgent intervention and personal management. I managed/supervised life or organ supporting interventions that required frequent physician assessment. I devoted my full attention in the ICU to the direct care of this patient for the period of time indicated above. Time I spent with family or surrogate(s) is included only if the patient was incapable of providing necessary information or participating in decision making. This time includes the following services provided: Telemetry review Mechanical Ventilation Hemodynamic interpretation, assessment and management Review and interpretation of CXR Review and interpretation of lab values Review and interpretation of microbiologic data and culture results Review of medications and administration Review and interpretation of Nutrition requirements and management Discussion of management with other consultants and services Clinical update to family members Diagnoses STEMI (ST elevation myocardial infarction) I21.3 Acute hypoxic respiratory failure J96.01 Ischemic cardiomyopathy I25.5 Acute systolic congestive heart failure I50.21 Heart failure type: systolic Heart failure chronicity: acute
[2025-01-24] MEDS: heparin 5,000 unit/mL INJ 1 mL 5000 UNIT SUBCUT ×2 (15:26→22:59)
--- NOTE | 2025-01-24 16:21 | PC.NURSE ---
lab here attempt to draw blood and became severely agitated again , this time noted tremor of upper arms and body, kicking feet , during episode was attempting to give sub q heparin when he kicked and needle come apart , removed attempt to calm pt at this time, ,had several episodes of tremors temp check done and covers placed on pt temp 99 increased sedation at this time, family remain at bedside
--- NOTE | 2025-01-24 16:28 | PC.NURSE ---
Dr Kong notified of above episodes
--- NOTE | 2025-01-24 18:02 | PC.NURSE ---
urine output decreased and monitor blood pressure increased sedation for pt to rest, dr rosas notified 500 fluid bolus given at this time
--- NOTE | 2025-01-24 18:44 | USCV_ITS ---
Contreras Aponte Age: 44 Gender: M : 1980 Exam Date: 01/24/2025 11:20 Ordering Phys: Thai Wilkerson M.D ([email or web address]) Technologist: Fracisco Luu Exam Location: [facility] Indication: stemi BP: 85 / 61 HR: 60 Rhythm: Sinus Technical Quality: Adequate MEASUREMENTS (Male / Female) Normal Values 2D ECHO LV Diastolic Diameter PLAX 6.0 cm 4.2 - 5.9 / 3.9 - 5.3 cm IVS Diastolic Thickness 1.3 cm 0.6 - 1.0 / 0.6 - 0.9 cm IVS Systolic Thickness 1.7 cm LVPW Diastolic Thickness 0.9 cm 0.6 - 1.0 / 0.6 - 0.9 cm LVPW Systolic Thickness 1.3 cm LVOT Diameter 2.1 cm LV Ejection Fraction 2D Teich 47.9 % LV Ejection Fraction MOD 4C 47.9 % LV Ejection Fraction MOD 2C 40.8 % LV Ejection Fraction 2C AL 40.8 % LA Diameter 3.1 cm RA Systolic Volume 4C AL 27.7 ml RA Systolic Volume 4C MOD 27.8 ml LA Sys Volume AL 24.3 cm cubed LA Sys Volume Index AL 12.1 cm cubed/m squared Aorta at Sinotubular Diameter 2.7 cm IVC Diameter 1.5 cm M-MODE LA Ao Ratio MM 0.9 AV Cusp Separation MM 2.2 cm DOPPLER AV Peak Velocity 84.3 cm/s LVOT Peak Velocity 57.0 cm/s AV Area Cont Eq vti 2.3 cm squared AV Area Cont Eq pk 2.4 cm squared MV Peak Velocity 51.0 cm/s MV Area PHT 7.7 cm squared Mitral E to A Ratio 1.1 TV Peak Velocity 148.5 cm/s TR Peak Velocity 149.0 cm/s TR Peak Gradient 8.9 mmHg TR Mean Velocity 132.0 cm/s TR Mean Gradient 7.1 mmHg TR Velocity Time Integral 42.3 cm PV Peak Velocity 83.0 cm/s RV Ejection Time 0.2 s FINDINGS Left Ventricle Technically limited quality echocardiogram because of poor ultrasonic windows. LV systolic function is mildly reduced with EF of 40 to 45%. Severe hypokinesis of inferolateral and inferior yusuf. Right Ventricle Mildly hypokinetic Right Atrium Normal right atrial size. Left Atrium Normal left atrial size. Mitral Valve Structurally normal mitral valve. Mild mitral regurgitation. Aortic Valve Grossly normal. No significant stenosis or regurgitation. Tricuspid Valve Insufficient TR jet to calculate RVSP Pulmonic Valve Not well visualized Pericardium Normal Aorta Normal in size IVC Appears to be normal CONCLUSIONS Technically limited quality echocardiogram because of poor ultrasonic windows. LV systolic function is mildly reduced with EF of 40-45%. Above-mentioned regional wall motion abnormalities. RV is mildly hypokinetic. Mild mitral regurgitation No comparison studies are available. Thai Wilkerson MD (Electronically Signed) Final Date: 24 January 2025 12:24 S
[2025-01-24] MEDS: fentaNYL 1,000 MCG/100 ML BAG 12.5 MCG IV (19:52)
[2025-01-25] VITALS (55 sets, daily range): BP systolic 81–114; BP diastolic 50–68; PULSE 62–76; RESP 14–17; TEMP 36.9–38.3; O2SAT 89–100
[2025-01-25] MEDS: propofol 1,000 MG/100 ML INJ 23.27 MG IV ×3 (02:45→16:30)
[2025-01-25] MEDS: fentaNYL 1,000 MCG/100 ML BAG 12.5 MCG IV (03:32)
[2025-01-25 03:44] LABS: ABG PCO2 38.3 mmHg (35-45); ABG PH Result 7.39 (7.35-7.45); Alveolar-Arterial Oxygen Gradi 12.6 mmHg (5-10); Arterial Blood Gas Hematocrit 40.7 % (42-52); Blood Gas Allen Test Pos; Blood Gas Operator Identificat BD; Blood Gas Sample Site Brachial, right; Blood Gas Sample Type Arterial; Blood Gas Tidal Volume 0.50; Carboxyhemoglobin 0.9 %THgb (0.4-20.1); Glucose Level-ABG 85.0 mg/dL (70-115); HCO3 ABG 23.1 mmol/L (22-26); Ionized Calcium Level - ABG 1.2 mmol/L (1.1-1.4); Methemoglobin 0.3 % (0.4-1.5); Oxygen Saturation ABG 95.0; PEEP 5.0 cmH20; PO2 ABG 70.2 mmHg (80.0-100.0); PO2 FiO2 Ratio Arterial Blood 234; Potassium Level - ABG 3.8 mmol/L (3.5-5.0); Sodium Level - ABG 141.0 mmol/L (131-143)
[2025-01-25 05:22] LABS: Hematocrit 41.2 % (37-53); Hemoglobin 13.20 g/dL (11.27-16.99); Mean Corpuscular HGB Conc 32.0 g/dL (30-55); Mean Corpuscular Hemoglobin 30.8 pg (27-33); Mean Corpuscular Volume 96.0 fl (82-101); Nucleated Red Blood Cells % 0 %; Platelet Count 149 10^3/cmm (157-399); Red Blood Count 4.29 10^6/uL (3.85-5.65); White Blood Count 7.84 10^3/uL (3.29-11.43)
[2025-01-25 05:59] LABS: Alanine Aminotransferase 39 U/L (0-41); Albumin Level 2.9 g/dL (3.5-5.2); Alkaline Phosphatase 72 U/L (40-130); Aspartate Amino Transferase 105 U/L (0-40); Blood Urea Nitrogen 10 mg/dL (6-20); Calcium 8.1 mg/dL (8.5-10.5); Carbon Dioxide 22 mmol/L (22-29); Chloride 110 mmol/L (98-107); Creatinine Clr Calc Pharmacy 147.7401; Globulin 2.2 g/dL (1.3-4.6); Glucose 81 mg/dL (65-115); Magnesium 2.0 mg/dL (1.7-2.3); Osmolality Calculated 290 mOsm/kg (285-295); Sodium 141 mmol/L (136-145); Total Protein 5.1 g/dL (6.6-8.7)
[2025-01-25] MEDS: heparin 5,000 unit/mL INJ 1 mL 5000 UNIT SUBCUT ×3 (06:04→22:03)
[2025-01-25 06:10] LABS: Anion Gap 13.0 (5-19); Potassium 4.0 mmol/L (3.5-5.1)
[2025-01-25] MEDS: pantoprazole 40 mg SDV IVP (08:11)
[2025-01-25] MEDS: norepinephrine 4 MG/250 ML BAG 11.25 MG IV (08:57)
--- NOTE | 2025-01-25 10:10 | CT_ITS ---
WS: [id number] CT HEAD TECHNIQUE: Noncontrast CT of the head obtained from the skullbase to the vertex. CLINICAL INFORMATION: AMS DLP: 1247.[address] scans at [facility] [place] use at least one of these dose optimization techniques: automated exposure control; mA and/or kV adjustment per patient size (includes targeted exams where dose is matched to clinical indication); or iterative reconstruction. FINDINGS: No evidence of intracranial hemorrhage or mass effect. Ventricular system and basal cisterns are patent. Mild to moderate small vessel changes with mild to moderate parenchymal volume loss. No extra-axial fluid collections. No evidence of mass or mass effect. Fluid in the ethmoid air cells sphenoid sinus and posterior nasopharynx. Partial opacification of the RIGHT mastoid air cells and RIGHT middle ear. CT/CT head wo con* [id number] IMPRESSION: 1. No evidence of intracranial hemorrhage or mass effect. 2. No acute intracranial findings.
--- NOTE | 2025-01-25 10:10 | CT_ITS ---
WS: [id number] CT CHEST TECHNIQUE: Noncontrast CT of the chest with coronal and sagittal reformatted images. CLINICAL INFORMATION: POTENTIAL ASPIRATION COMPARISON: None. DLP: 561.[address] scans at [facility] use at least one of these dose optimization techniques: automated exposure control; mA and/or kV adjustment per patient size (includes targeted exams where dose is matched to clinical indication); or iterative reconstruction. FINDINGS: Endotracheal tube with tip above the kumar. Enteric tube with tip in the stomach. Coronary stents. Shallow inspiration. Trace bilateral pleural fluid. Compressive atelectasis RIGHT greater than LEFT lower lobes. Subsegmental atelectasis in the RIGHT middle lobe. Air bronchograms RIGHT lower lobe. Upper lobes are well aerated. Hypertrophic changes thoracic spine. Mild thoracic curve and kyphosis. CT/CT chest wo con [id number] IMPRESSION: 1. Trace bilateral pleural fluid with compressive atelectasis RIGHT greater th an LEFT lower lobes. Air bronchograms in the RIGHT lower lobe. Recommend correl ation for pneumonia. 2. Subsegmental atelectasis in the RIGHT middle lobe. 3. Endotracheal tube and enteric tubes in place. 4. No other acute findings.
--- NOTE | 2025-01-25 10:58 | P.PN_ITS ---
<Statement entered by Thai Wilkerson M.D - 01/28/25 11:52> Patient was cared for in conjunction with an advanced practice practitioner.? I reviewed the chart and all pertinent data including imaging, telemetry, and laboratory results.? I discussed the patient in detail with the advanced practice practitioner.? Please see their note for complete progress note, testing results and agreed upon plan of care for the patient. Subjective 2 Subjective: He remains intubated and sedated. On Levophed 3 mcg/min. Vitals/I&O/Wt Last Vital Signs Temp 98.5 F 01/25/25 08:00 Pulse 67 01/25/25 08:00 Resp 14 01/25/25 10:31 BP 99/61 01/25/25 08:00 Pulse Ox 96 01/25/25 10:31 O2 Del Method Mechanical Ventilation 01/23/25 20:19 O2 Flow Rate 2 01/23/25 16:57 FiO2 30 01/25/25 10:31 01/24/25 01/25/25 01/25/25 22:59 06:59 14:59 Intake Total 1577.405 / 6028.958 1963.771 / 6028.958 1213.567 / 1213.567 Output Total 200 / 2100 600 / 2100 Balance 1377.405 / 3928.958 1363.771 / 3928.958 1213.567 / 1213.567 Weight last 48 hrs Weight 182 lb 15.739 oz Weight 176 lb Weight 190 lb Physical Exam 2 Const: COMMON NORMALS: no acute distress EXAM LIMITATIONS: other limitations (intubated) ORIENTATION/CONSCIOUSNESS: Yes awake Chest: COMMONS NORMALS: normal inspection of the chest and normal palpation of entire chest wall CHEST: Yes Symmetrical chest wall rise Resp: COMMON NORMALS: normal respiratory effort, No retractions, No use of accessory muscles and clear to auscultation bilaterally EFFORT & INSPECTION: Yes symmetric chest movement AUSCULTATION: clear to auscultation bilaterally Cardio: COMMON NORMALS: regular rate, regular rhythm, S1 normal heart sound present, S2 normal heart sound present, No gallops present (Cardio), No clicks present (Cardio), No murmurs present (Cardio) and No rub (Cardio) RATE: r egular rate RHYTHM: regular rhythm HEART SOUNDS: S1 normal heart sound present and S2 normal heart sound present PERIPHERAL PULSES: radial pulses present Extremity: COMMON NORMALS: no pedal edema Neuro: COMMON NORMALS: moves all extremities Urinary Catheter Management: Bird: Cath Placed During This Visit: yes Reason for Continuing Indwelling Catheter: Accurate Measurement of Urinary Output in Critically Ill Patients Urinary Catheter Date of Insertion: 01/23/25 Urinary Catheter Time of Insertion: 19:50 Data 01/25/25 04:00 01/25/25 04:00 Micro: Microbiology 01/24/25 13:50 Gram Stain - Final Sputum - Endotracheal Tube Aspirate Sputum Culture - Preliminary A&P Assessment and plan 1. STEMI (ST elevation myocardial infarction): 2. Ischemic cardiomyopathy: 3. Acute systolic congestive heart failure: Plan: Becomes agitated when attempting weaning of the ventilator. Drug screen is pending. Requires Levophed for blood pressure support. He has received IV fluid boluses. Does not appear fluid overloaded at this time. Continue aspirin, Plavix, statin. PDMP PDMP Reviewed: Not Reviewed Attestations 2 Medical Necessity Statement*: ventilator support Coding Level of Care Code Acute Code for [facility] Diagnoses STEMI (ST elevation myocardial infarction) I21.3 Ischemic cardiomyopathy I25.5 Acute systolic congestive heart failure I50.21 Heart failure type: systolic Heart failure chronicity: acute
[2025-01-25] MEDS: propofol 1,000 MG/100 ML INJ 20.68 MG IV (11:37)
[2025-01-25] MEDS: fentaNYL 1,000 MCG/100 ML BAG 10 MCG IV ×2 (11:37→19:54)
--- NOTE | 2025-01-25 12:38 | PM.PN ---
Subjective Subjective: Seen this morning. Patient intubated and sedated. Per nursing staff when sedation is weaned patient becomes very agitated and does not follow any commands. Having a lot of secretions in ET tube. Extubation attempted yesterday however unsuccessful. Vitals/I&O/Wt Last Vital Signs Temp 98.5 F 01/25/25 08:00 Pulse 67 01/25/25 08:00 Resp 14 01/25/25 11:47 BP 99/61 01/25/25 08:00 Pulse Ox 92 01/25/25 11:47 O2 Del Method Mechanical Ventilation 01/23/25 20:19 O2 Flow Rate 2 01/23/25 16:57 FiO2 40 01/25/25 11:47 01/24/25 01/25/25 01/25/25 22:59 06:59 14:59 Intake Total 1577.405 / 4065.187 1963.771 / 6028.958 1301.012 / 1301.012 Output Total 200 / 1500 600 / 2100 Balance 1377.405 / 2565.187 1363.771 / 3928.958 1301.012 / 1301.012 Weight last 48 hrs Weight 83 kg Weight 79.832 kg Weight 86.183 kg Physical Exam Narrative: General: Intubated, sedated HEENT: PERRLA, pupils bilaterally equal and reactive Chest: Normal vesicular breath sounds, no added sounds, equal good air entry bilaterally CVS: S1-S2 regular, no murmurs, no tachycardia, Abdomen: Soft, nontender, bowel sounds present neuro: sedated Urinary Catheter Management: Bird: Cath Placed During This Visit: yes Reason for Continuing Indwelling Catheter: Accurate Measurement of Urinary Output in Critically Ill Patients Urinary Catheter Date of Insertion: 01/23/25 Urinary Catheter Time of Insertion: 19:50 Data 01/25/25 04:00 01/25/25 04:00 Micro: Microbiology 01/24/25 13:50 Gram Stain - Final Sputum - Endotracheal Tube Aspirate Sputum Culture - Preliminary A&P Assessment and plan 1. STEMI (ST elevation myocardial infarction): Post PCI to RCA. Continue with DAPT, statin. Check A1c, lipid panel. Appreciate echocardiogram. Hold off on beta-itzel given soft blood pressures. 2. Acute hypoxic respiratory failure: Currently on mechanical ventilation. Could not tolerate extubation because of agitation. Oxygen supplementation keeping saturation over 88%. Daily ABG, chest x-ray. Continue sedation with propofol and fentanyl. Will try to wean sedation in next 24 hours for trial of extubation in a.m. tomorrow. 3. Ischemic cardiomyopathy: Echocardiogram done shows EF of 45 to 50% with severe hypokinesia of inferior lateral and inferior yusuf, hypokinetic RV. MR. 4. Acute systolic congestive heart failure: Currently euvolemic. Continue with fluids. Watch for fluid overload. Plan: Shock: Keep mean artery pressure 65. Cheetah examination shows patient being fluid responsive. Will plan for 2 L IV fluid bolus. Continue with NS at 100 cc/h. Wean Levophed accordingly. Heparin for DVT prophylaxis Protonix for PUD prophylaxis N.p.o. 01/25/[address] and head ct post pci to rca check hba1cm lipid panel urine drug screen pending hold off on BB given soft BP on levophed 3 mics Continue sedation with propofol and fentanyl. Will try to wean sedation in next 24 hours for trial of extubation in a.m. tomorrow. Echocardiogram done shows EF of 45 to 50% with severe hypokinesia of inferior lateral and inferior yusuf, hypokinetic RV. MR. Consult pulmonology for patient weaning and sedation management considering the complexity of the case. Talked with Dr. Camarena, he will review the case. Chest ct shows: right LL pna check procal, start vanc zosyn azithro check sputum sample blood cultures order lasix 40 IV x1 stop IV fluids updated patients mom and gf in detail PDMP PDMP Reviewed: Not Reviewed Attestations Medical Necessity Statement*: intubated, sedated Critical Care Time: The high probability of a clinically significant, sudden or life threatening deterioration of the patient's [respiratory, cardiovascular] system(s) required my full and direct attention, intervention and personal management. The critical care time is as shown. This time is in addition to time spent performing any reported procedures but includes the following: [x] Data and vital sign review and interpretation [x] Patient assessment, examination and intervention [x] Documentation [x] Medication orders and management Critical Care Time (min): 60 Coding Level of Care Code Acute Code for [facility] [employer] Fwd Diagnoses STEMI (ST elevation myocardial infarction) I21.3 Acute hypoxic respiratory failure J96.01 Ischemic cardiomyopathy I25.5 Acute systolic congestive heart failure I50.21 Heart failure chronicity: acute Heart failure type: systolic
[2025-01-25] MEDS: FUROsemide 10 mg/mL SDV 4mL 40 MG IVP (14:04)
[2025-01-25] MEDS: vancomycin 1,750 MG/350 ML PIGGYBACK 175 MG IV (14:04)
[2025-01-25 14:23] LABS: Procalcitonin 0.12 ng/mL (0-0.5); Thyroid Stimulating Hormone 3.45 uIU/mL (0.27-4.20)
--- NOTE | 2025-01-25 15:13 | PC.NURSE ---
After titrating down sedation per protocol, patient unable to follow simple commands, patient began thrashing arms and legs attempting to self extubate. Provider aware, sedation resumed
--- NOTE | 2025-01-25 15:30 | PHA.VACGOAL ---
Vancomycin Goal - Goal Vancomycin Goal:: 15-20 mg/L Vancomycin Indication:: Pneumonia - Therapy Current therapy:: Pip/Tazo Day of therpy:: Day [1]of [] . Actual body weight (kg): 83 kg - Data Labs: WBC 7.84 10^3/uL (3.29-11.43) 01/25/25 04:00 RBC 4.29 10^6/uL (3.85-5.65) 01/25/25 04:00 Hgb 13.20 g/dL (11.27-16.99) 01/25/25 04:00 Hct 41.2 % (37-53) 01/25/25 04:00 MCV 96.0 fl (82-101) 01/25/25 04:00 MCH 30.8 pg (27-33) 01/25/25 04:00 MCHC 32.0 g/dL (30-55) 01/25/25 04:00 RDW 14.3 % (12.1-15.1) 01/25/25 04:00 Sodium 141 mmol/L (136-145) 01/25/25 04:00 Potassium 4.0 mmol/L (3.5-5.1) 01/25/25 04:00 Chloride 110 mmol/L (98-107) H 01/25/25 04:00 Carbon Dioxide 22 mmol/L (22-29) 01/25/25 04:00 Anion Gap 13.0 (5-19) 01/25/25 04:00 BUN 10 mg/dL (6-20) 01/25/25 04:00 Creatinine 0.7 mg/dL (0.7-1.2) 01/25/25 04:00 GFR Calculation 122.0 mL/min (90-130) 01/25/25 04:00 Treatment plan:: new consult Regimen:: New start vancomycin for Pneumonia. No prior vancomycin history found. Load dose of 1750 mg ordered. Started maintenance dose of 1250 mg q8h.
[2025-01-25] MEDS: piperacillin-tazobactam 3.375 GM in sodium chloride 0.9% (plus) 50 ML IV (15:57)
--- NOTE | 2025-01-25 20:12 | P.CONIM_ITS ---
Providers/Reason For Consult 2 Consulting Physician/Specialty*: Hospital medicine Reason for Consult*: Unable to extubate Agitation about holding sedation Requesting Physician: Dr. Garcia Attending Physician: Thai Wilkerson M.D Primary Care Provider: Contreras Kramer MD History of Present Illness History of Present Illness Contreras Aponte is a 44 year old male patient who presented with ACS on 01/23/2025 patient intubated before the left heart catheterization and he underwent coronary angiography with 2 stents to the RCA. Patient was transferred to the ICU and he remained intubated and sedated. Next day, sedation was weaned off and patient got agitated and got more hypoxemic and they could not extubate him. Again on 01/25 patient got agitated upon sedation holiday and he could not get extubated. Eventually CT head was obtained which did not show any acute intracranial issues. When I interviewed the patient he was sedated with propofol and fentanyl and he was on 2 mcg of norepinephrine. Patient was not following commands as he was sedated but he was purposeful. Patient was on a low ventilator setting. CT chest was obtained on 01/25 which showed right lower lobe consolidation with air bronchogram concerning for aspiration pneumonia. Subsequently patient was started on broad-spectrum antibiotic by the hospital medicine team. Review of Systems 2 General: Reports: ROS unobtainable due to endotracheal tube Medications/Allergies Home Medications ?Medication ?Instructions ?Recorded ?Confirmed ?Last Taken ?Type No Known Home Medications 01/24/2501/02 Unknown History Allergies Allergy/AdvReac Type Severity Reaction Status Date / Time No Known Allergies Allergy Verified 01/23/25 16:48 Current Medications Generic Name Dose Route Start Last Admin Trade Name Freq PRN Reason Stop Dose Admin Acetaminophen 650 mg 01/23/25 18:41 01/25/25 20:11 Acetaminophen 325 Mg Tablet PO 650 mg Q6H PRN Administration MILD PAIN Aspirin 81 mg 01/24/25 09:00 01/25/25 08:11 Aspirin 81 Mg Ec Tablet PO 81 mg DAILY JASSI Administration Atorvastatin Calcium 80 mg 01/23/25 21:00 01/25/25 20:11 Atorvastatin 40 Mg Tablet PO 80 mg BEDTIME JASSI Administration Azithromycin 500 mg 01/25/25 13:50 01/25/25 14:03 Azithromycin 250 Mg Tablet PO 500 mg DAILY JASSI Administration Protocol Clopidogrel Bisulfate 75 mg 01/24/25 09:00 01/25/25 08:11 Clopidogrel 75 Mg Tablet PO 75 mg DAILY JASSI Administration Heparin Sodium (Porcine) 5,000 unit 01/24/25 15:00 01/25/25 14:03 Heparin 5,000 Unit/Ml Inj 1 Ml SUBCUT 5,000 unit Q8H JASSI Administration Fentanyl 1,000 mcg in 100 mls @ 0 mls/hr 01/23/25 18:45 01/25/25 19:54 Sublimaze IV 100 mcg/hr .Q0M JASSI 10 mls/hr Protocol Administration Per Protocol Propofol 1,000 mg in 100 mls @ 0 mls/hr 01/23/25 19:30 01/25/25 16:30 Diprivan IV 45 mcg/kg/min .Q0M JASSI 23.27 mls/hr Protocol Administration Per Protocol Norepinephrine Bitartrate 4 mg in 250 mls @ 0 mls/hr 01/23/25 23:00 01/25/25 10:16 Levophed IV 4 mcg/min .Q0M JASSI 15 mls/hr Protocol Titration Per Protocol Piperacillin Sod/Tazobactam 50 mls @ 12.5 mls/hr 01/25/25 16:00 01/25/25 20:09 Sod 3.375 gm/ Sodium Chloride IV Infused Q8H JASSI Infusion Pantoprazole Sodium 40 mg 01/24/25 09:00 01/25/25 08:11 Pantoprazole 40 Mg Sdv IVP 40 mg DAILY JASSI Administration Quetiapine Fumarate 50 mg 01/25/25 21:00 01/25/25 20:11 Quetiapine 25 Mg Tablet PO 50 mg BEDTIME JASSI Administration PFSH Acute 2 PFSH: Medical History (Updated 01/26/25 @ 09:51 by Rosa Maria Camarena MD) Constipation Memory loss Urolithiasis Multi stone former. Spontaneously passed at age 19. Bilateral renal calculi left ureteral calculi diagnosed November 2021. Calculus of distal left ureter Surgical History History of colonoscopy 11/2021 History of esophagogastroduodenoscopy (EGD) 11/2021 History of placement of ear tubes x8 History of appendectomy 2011 History of umbilical hernia repair 2012 Family History Mother Difficulty breathing Other Anesthesia complication Diabetes Denies family history of CAD (coronary artery disease) Dementia Chronic kidney disease (CKD) Bleeding disorder Cancer Stroke Social History Smoking and tobacco/nicotine status: current every day tobacco/nicotine user Alcohol intake: never Substance/Drug Use: never Lives independently: Yes Household members: spouse Marital status: Current occupational status: employed Vitals/I&O/Wt Last Vital Signs Temp 100.9 F H 01/25/25 20:00 Pulse 76 01/25/25 20:00 Resp 17 01/25/25 19:54 BP 96/56 01/25/25 20:00 Pulse Ox 95 01/25/25 20:00 O2 Del Method Mechanical Ventilation 01/23/25 20:19 O2 Flow Rate 2 01/23/25 16:57 FiO2 40 01/25/25 19:54 01/25/25 01/25/25 01/25/25 06:59 14:59 22:59 Intake Total 1963.771 / 6028.958 1301.012 / 1301.012 582.833 / 1883.845 Output Total 600 / 2100 2700 / 2700 Balance 1363.771 / 3928.958 1301.012 / 1301.012 -2117.167 / -816.155 Weight last 48 hrs Weight 182 lb 15.739 oz Weight 176 lb Physical Exam 2 Narrative: General: Intubated and sedated but purposeful upon stimuli Neck: Supple. Intubated Cardiovascular: Regular rate and rhythm. Normal S1 and S2. No murmurs, gallops, or rubs. No peripheral edema. Respiratory: Good air entry bilaterally with mechanical breathing sounds Abdomen: Soft, non-tender, non-distended. Normoactive bowel sounds. Extremities: No cyanosis, clubbing, or edema. Full range of motion. Peripheral pulses palpable and symmetric. Skin: Warm and dry. No rashes, lesions, or ulcers. Neurology: Unable to assess as patient intubated and sedated Psychiatry: Unable to assess Urinary Catheter Management: Bird: Cath Placed During This Visit: yes Reason for Continuing Indwelling Catheter: Accurate Measurement of Urinary Output in Critically Ill Patients Urinary Catheter Date of Insertion: 01/23/25 Urinary Catheter Time of Insertion: 19:50 Data 01/26/25 03:12 01/26/25 03:12 Micro: Microbiology 01/24/25 13:50 Gram Stain - Final Sputum - Endotracheal Tube Aspirate Sputum Culture - Preliminary A&P Assessment and plan 1. Acute hypoxic respiratory failure: 2. Ischemic cardiomyopathy: 3. Acute systolic congestive heart failure: 4. STEMI (ST elevation myocardial infarction): 5. Acute encephalopathy: 6. 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 I already gave verbal recommendation to give 50 mg of Seroquel and to use haloperidol as needed if patient get agitated. Tomorrow morning I recommended to transition to Precedex small dose and perform spontaneous breathing trial. If patient passes and he follows commands I would recommend to extubate. Neuro: No need for further imaging at this point. Plan for sedation holiday in the morning and assess mental status. Use Seroquel tonight and haloperidol as needed. Will bridge Precedex to take off propofol without agitation Cardiovascular: Minimal norepinephrine. Antiplatelets, heart medication per cardiology and hospital medicine. I would recommend a dose of Lasix prior to extubation Respiratory: Patient being treated for acute acute pneumonia broad-spectrum antibiotics. Recommend to continue with protective lung ventilation. Spontaneous breathing trial in the morning and I do not see a problem extubating the patient the morning GI: Patient would benefit from peptic ulcer protection while he is intubated and once he eats this can be discontinued unless he is on it at home. Otherwise continue with the tube feed. Bowel regimen as needed Nephrology: Replace electrolyte as needed. Monitor kidney function closely and avoid nephrotoxic agents possible Infectious disease: On broad-spectrum antibiotics per hospital medicine. I would recommend noninvasive investigation for acute pneumonia including sputum Gram stain and culture and urine antigen. The Koska's and Legionella Hematology: Patient already on dual antiplatelet and on heparin subcu. Hemoglobin stable Patient is already on PPI for stress ulcer prophylaxis and on heparin subcu for DVT prophylaxis. I spent 55 minutes critical care time taking care of this patient excluding procedures. Rosa Maria Camarena MD, FACP, FASN PDMP PDMP Reviewed: Not Reviewed Coding Level of Care Code Acute Code for [facility] Diagnoses Acute hypoxic respiratory failure J96.01 Ischemic cardiomyopathy I25.5 Acute systolic congestive heart failure I50.21 Heart failure chronicity: acute Heart failure type: systolic STEMI (ST elevation myocardial infarction) I21.3 Acute encephalopathy G93.40 Acute pneumonia J18.9
[2025-01-25] MEDS: propofol 1,000 MG/100 ML INJ 25.86 MG IV (21:30)
[2025-01-26] VITALS (46 sets, daily range): BP systolic 80–148; BP diastolic 54–93; PULSE 62–102; RESP 13–21; TEMP 37.1–37.7; O2SAT 94–99
[2025-01-26] MEDS: piperacillin-tazobactam 3.375 GM in sodium chloride 0.9% (plus) 50 ML IV ×4 (00:54→23:08)
[2025-01-26] MEDS: propofol 1,000 MG/100 ML INJ 25.86 MG IV (01:22)
[2025-01-26 03:25] LABS: ABG PCO2 39.0 mmHg (35-45); ABG PH Result 7.38 (7.35-7.45); Alveolar-Arterial Oxygen Gradi 20.6 mmHg (5-10); Arterial Blood Gas Hematocrit 42.2 % (42-52); Blood Gas Allen Test Pos; Blood Gas Operator Identificat BD; Blood Gas Sample Site Brachial, right; Blood Gas Sample Type Arterial; Blood Gas Tidal Volume 0.50; Carboxyhemoglobin 0.7 %THgb (0.4-20.1); Glucose Level-ABG 75.0 mg/dL (70-115); HCO3 ABG 23.2 mmol/L (22-26); Ionized Calcium Level - ABG 1.1 mmol/L (1.1-1.4); Methemoglobin 0.4 % (0.4-1.5); Oxygen Saturation ABG 96.5; PEEP 8.0 cmH20; PO2 ABG 79.9 mmHg (80.0-100.0); PO2 FiO2 Ratio Arterial Blood 199; Potassium Level - ABG 3.7 mmol/L (3.5-5.0); Sodium Level - ABG 137.0 mmol/L (131-143)
[2025-01-26 03:48] LABS: Hematocrit 38.3 % (37-53); Hemoglobin 12.80 g/dL (11.27-16.99); Mean Corpuscular HGB Conc 33.4 g/dL (30-55); Mean Corpuscular Hemoglobin 31.1 pg (27-33); Mean Corpuscular Volume 93.2 fl (82-101); Nucleated Red Blood Cells % 0 %; Platelet Count 142 10^3/cmm (157-399); Red Blood Count 4.11 10^6/uL (3.85-5.65); White Blood Count 7.20 10^3/uL (3.29-11.43)
[2025-01-26] MEDS: fentaNYL 1,000 MCG/100 ML BAG 10 MCG IV (04:00)
[2025-01-26 04:11] LABS: Alanine Aminotransferase 28 U/L (0-41); Albumin Level 2.8 g/dL (3.5-5.2); Alkaline Phosphatase 90 U/L (40-130); Anion Gap 15.0 (5-19); Aspartate Amino Transferase 57 U/L (0-40); Blood Urea Nitrogen 9 mg/dL (6-20); Calcium 8.2 mg/dL (8.5-10.5); Carbon Dioxide 21 mmol/L (22-29); Chloride 106 mmol/L (98-107); Creatinine Clr Calc Pharmacy 129.2726; Globulin 2.5 g/dL (1.3-4.6); Glucose 82 mg/dL (65-115); Magnesium 1.8 mg/dL (1.7-2.3); Osmolality Calculated 284 mOsm/kg (285-295); Potassium 4.0 mmol/L (3.5-5.1); Sodium 138 mmol/L (136-145); Total Protein 5.3 g/dL (6.6-8.7)
[2025-01-26] MEDS: propofol 1,000 MG/100 ML INJ 23.27 MG IV (04:53)
[2025-01-26] MEDS: pantoprazole 40 mg SDV IVP (08:22)
[2025-01-26] MEDS: heparin 5,000 unit/mL INJ 1 mL 5000 UNIT SUBCUT ×3 (08:22→23:07)
--- NOTE | 2025-01-26 08:39 | P.PN_ITS ---
<Statement entered by Thai Wilkerson M.D - 01/28/25 11:57> Patient was cared for in conjunction with an advanced practice practitioner.? I reviewed the chart and all pertinent data including imaging, telemetry, and laboratory results.? I discussed the patient in detail with the advanced practice practitioner.? Please see their note for complete progress note, testing results and agreed upon plan of care for the patient. Subjective 2 Subjective: He has been having difficulty with extubation, becoming very agitated and not following commands. Still on Levophed 2 mcg/min. He was febrile yesterday, up to 100.9 ?F, afebrile so far this morning. On vancomycin and Zosyn, appreciate hospitalist management. Excellent urine output Vitals/I&O/Wt Last Vital Signs Temp 99.7 F H 01/26/25 04:30 Pulse 65 01/26/25 06:00 Resp 14 01/26/25 07:33 BP 98/57 01/26/25 04:30 Pulse Ox 95 01/26/25 07:33 O2 Del Method Mechanical Ventilation 01/23/25 20:19 O2 Flow Rate 2 01/23/25 16:57 FiO2 40 01/26/25 07:33 01/25/25 01/26/25 01/26/25 22:59 06:59 14:59 Intake Total 806.333 / 2620.170 512.825 / 2620.170 50 / 50 Output Total 2700 / 3550 850 / 3550 Balance -1893.667 / -929.830 -337.175 / -929.830 50 / 50 Weight last 48 hrs Weight 180 lb 12.465 oz Weight 182 lb 15.739 oz Physical Exam 2 Narrative: Agitated to voice, lifting buttocks up, lifting legs, turning head. Const: GENERAL APPEARANCE: cooperative ORIENTATION/CONSCIOUSNESS: Yes Other orientation findings (sedated but agitated by voice/conversation) Chest: COMMONS NORMALS: normal inspection of the chest and normal palpation of entire chest wall CHEST: Yes Symmetrical chest wall rise Resp: COMMON NORMALS: normal respiratory effort, No retractions, No use of accessory muscles and clear to auscultation bilaterally AUSCULTATION: clear to auscultation bilaterally Cardio: COMMON NORMALS: regular rate, regular rhythm, S1 normal heart sound present, S2 normal heart sound present, No gallops present (Cardio), No clicks present (Cardio), No murmurs present (Cardio) and No rub (Cardio) RATE: r egular rate RHYTHM: regular rhythm HEART SOUNDS: S1 normal heart sound present and S2 normal heart sound present PERIPHERAL PULSES: radial pulses present positive right 2+ and femoral pulses present positive right 2+ Neuro: COMMON NORMALS: moves all extremities Skin: WOUNDS: Yes surgical site (no hematoma palpable) Details: no odor Urinary Catheter Management: Bird: Cath Placed During This Visit: yes Reason for Continuing Indwelling Catheter: Accurate Measurement of Urinary Output in Critically Ill Patients Urinary Catheter Date of Insertion: 01/23/25 Urinary Catheter Time of Insertion: 19:50 Data 01/26/25 03:12 01/26/25 03:12 Micro: Microbiology 01/24/25 13:50 Gram Stain - Final Sputum - Endotracheal Tube Aspirate Sputum Culture - Preliminary A&P Assessment and plan 1. STEMI (ST elevation myocardial infarction): 2. Ischemic cardiomyopathy: 3. Acute systolic congestive heart failure: Plan: No significant arrhythmias, blood pressure and heart rate been stable, Levophed continues likely due to the effects of sedation. Interventional pulmonology has been consulted for assistance in weaning off the ventilator. Antibiotics prescribed for right lower lobe pneumonia. Continue aspirin, Plavix, statin. PDMP PDMP Reviewed: Not Reviewed Attestations 2 Medical Necessity Statement*: s/p STEMI, intubated on ventilator Coding Level of Care Code Acute Code for [facility] Diagnoses STEMI (ST elevation myocardial infarction) I21.3 Ischemic cardiomyopathy I25.5 Acute systolic congestive heart failure I50.21 Heart failure type: systolic Heart failure chronicity: acute
[2025-01-26] MEDS: FUROsemide 10 mg/mL SDV 4mL 40 MG IVP (08:41)
--- NOTE | 2025-01-26 10:57 | PM.PN ---
Subjective Subjective: seen this morning intubated following commands, less agitated today family at bedside Vitals/I&O/Wt Last Vital Signs Temp 100 F H 01/26/25 08:00 Pulse 88 01/26/25 09:00 Resp 17 01/26/25 09:24 BP 136/76 01/26/25 09:00 Pulse Ox 96 01/26/25 09:24 O2 Del Method Mechanical Ventilation 01/23/25 20:19 O2 Flow Rate 2 01/23/25 16:57 FiO2 30 01/26/25 09:24 01/25/25 01/26/25 01/26/25 22:59 06:59 14:59 Intake Total 806.333 / 2107.345 512.825 / 2620.170 309.380 / 309.380 Output Total 2700 / 2700 850 / 3550 Balance -1893.667 / -592.655 -337.175 / -929.830 309.380 / 309.380 Weight last 48 hrs Weight 82 kg Weight 83 kg Physical Exam Narrative: General: Intubated, sedated HEENT: PERRLA, pupils bilaterally equal and reactive Chest: Normal vesicular breath sounds, no added sounds, equal good air entry bilaterally CVS: S1-S2 regular, no murmurs, no tachycardia, Abdomen: Soft, nontender, bowel sounds present neuro: sedated Urinary Catheter Management: Bird: Cath Placed During This Visit: yes Reason for Continuing Indwelling Catheter: Accurate Measurement of Urinary Output in Critically Ill Patients Urinary Catheter Date of Insertion: 01/23/25 Urinary Catheter Time of Insertion: 19:50 Data 01/26/25 03:12 01/26/25 03:12 Micro: Microbiology 01/25/25 16:05 Gram Stain - Final Sputum - Endotracheal Wash 01/24/25 13:50 Gram Stain - Final Sputum - Endotracheal Tube Aspirate Sputum Culture - Preliminary A&P Assessment and plan 1. STEMI (ST elevation myocardial infarction): Post PCI to RCA. Continue with DAPT, statin. Check A1c, lipid panel. Appreciate echocardiogram. Hold off on beta-itzel given soft blood pressures. 2. Acute hypoxic respiratory failure: Currently on mechanical ventilation. Could not tolerate extubation because of agitation. Oxygen supplementation keeping saturation over 88%. Daily ABG, chest x-ray. Continue sedation with propofol and fentanyl. Will try to wean sedation in next 24 hours for trial of extubation in a.m. tomorrow. 3. Ischemic cardiomyopathy: Echocardiogram done shows EF of 45 to 50% with severe hypokinesia of inferior lateral and inferior yusuf, hypokinetic RV. MR. 4. Acute systolic congestive heart failure: Currently euvolemic. Continue with fluids. Watch for fluid overload. Plan: Shock: Keep mean artery pressure 65. Cheetah examination shows patient being fluid responsive. Will plan for 2 L IV fluid bolus. Continue with NS at 100 cc/h. Wean Levophed accordingly. Heparin for DVT prophylaxis Protonix for PUD prophylaxis N.p.o. 01/25/[address] and head ct post pci to rca check hba1cm lipid panel urine drug screen pending hold off on BB given soft BP on levophed 3 mics Continue sedation with propofol and fentanyl. Will try to wean sedation in next 24 hours for trial of extubation in a.m. tomorrow. Echocardiogram done shows EF of 45 to 50% with severe hypokinesia of inferior lateral and inferior yusuf, hypokinetic RV. MR. Consult pulmonology for patient weaning and sedation management considering the complexity of the case. Talked with Dr. Camarena, he will review the case. Chest ct shows: right LL pna check procal, start vanc zosyn azithro check sputum sample blood cultures order lasix 40 IV x1 stop IV fluids updated patients mom and gf in detail 01/26/2025 ct chest shows: RLL PNA, possibly patient aspirated, continue abx continue iV abx check strep legionella antigen, continue protonix 40 iv daily continue seroquel 50 daily check procal sputum culture blood cultures pending lasix 40 iv given yesterday order another lasix 40 iv this am wean sedation, sbt and plan to extubate today to start diet after extubation, - CHECK speech therapy PT/OT post extubation care still febrile 100 F will require > 2 midnight stay for treamtment of pneumonia appreciate recs from IP. PDMP PDMP Reviewed: Not Reviewed Attestations Medical Necessity Statement*: plan for extubation today RLL pneumonia safe discharge planning pt still febrile continue hospitalization Critical Care Time: The high probability of a clinically significant, sudden or life threatening deterioration of the patient's [cardiovascular, respiratory] system(s) required my full and direct attention, intervention and personal management. The critical care time is as shown. This time is in addition to time spent performing any reported procedures but includes the following: [x] Data and vital sign review and interpretation [x] Patient assessment, examination and intervention [x] Documentation [x] Medication orders and management Critical Care Time (min): 60 Coding Level of Care Code Acute Code for [facility] Diagnoses STEMI (ST elevation myocardial infarction) I21.3 Acute hypoxic respiratory failure J96.01 Ischemic cardiomyopathy I25.5 Acute systolic congestive heart failure I50.21 Heart failure chronicity: acute Heart failure type: systolic
--- NOTE | 2025-01-26 11:38 | PC.NURSE ---
Patient extubated without complication at 0935. Patient then placed on 2L nasal cannula
--- NOTE | 2025-01-26 16:26 | PC.NURSE ---
Addendum entered by Anupama Carbajal RN 01/26/25 16:39: Witnessed Waste Original Note: Sedation medications wasted with Anupama Lopez RN Fentanyl: 47.5 mls Propofol 3.87 mls
[2025-01-27] VITALS (26 sets, daily range): BP systolic 98–147; BP diastolic 65–99; PULSE 68–90; RESP 13–23; TEMP 36.4–37; O2SAT 92–98
--- NOTE | 2025-01-27 01:20 | PC.NURSE ---
Contacted telepharmacy regarding vancomycin trough. Lab drawn while med was hanging so results inaccurate. New order placed for vanc trough at 0700.
--- NOTE | 2025-01-27 04:09 | ECG_ITS ---
[facility] Test Date: 2025-01-27 Pat Name: Contreras Aponte Department: Room: 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 Measurements Intervals [place] Rate: 74 P: 38 CT: 149 QRS: -34 QRSD: 113 T: -36 QT: 393 QTc: 438 Interpretive Statements SINUS RHYTHM RIGHT VENTRICULAR CONDUCTION DELAY [RSR (QR) IN V1/V2] ST ELEVATION IN THE INFERIOR LEADS CONSISTENT WITH INFARCTION NONSPECIFIC T WAVE ABNORMALITY Compared to ECG 01/23/2025 23:00:57 ST ELEVATION IN THE ANTERIOR LEADS NO LONGER PRESENT T WAVE FLATTENING IN THE ANTERIOR LEADS IS NEW ST ELEVATION IN THE INFERIOR LEADS HAS MILDLY INCREASED Electronically Signed On 01-27-2025 23:17:05 CDT by Cortes Stewart M.D. [id number]
[2025-01-27] MEDS: morphine 4 mg/mL SDV 1 mL IVP (04:28)
--- NOTE | 2025-01-27 04:42 | ECG_ITS ---
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 Measurements Intervals [place] Rate: 73 P: 40 [place]: 146 QRS: -32 QRSD: 108 T: -36 QT: 404 QTc: 445 Interpretive Statements SINUS RHYTHM POSSIBLE RIGHT VENTRICULAR CONDUCTION DELAY [RSR (QR) IN V1/V2] ST ELEVATION, INFERIOR INFARCTION, POSSIBLY ACUTE Compared to ECG 01/27/2025 04:09:58 No significant changes Electronically Signed On 01-27-2025 23:12:31 CDT by Cortes Stewart M.D. [id number]
--- NOTE | 2025-01-27 04:42 | PC.NURSE ---
Pt began having complaints of substernal chest pain, stated it woke him up at 0400 and felt like a tightening sensation in his chest and began to feel stabbing sensation. EKG performed and IV morphine administered. Dr. Han on unit and read EKG, assessed patient and was agreeable to forwarding to cardiology. Dr. Stewart concacted, prior EKG and current EKG sent for comparison. Received call back and instructed to give 1 nitro SL and repeat EKG after 15 min.
[2025-01-27 06:51] LABS: Hematocrit 39.2 % (37-53); Hemoglobin 13.60 g/dL (11.27-16.99); Mean Corpuscular HGB Conc 34.7 g/dL (30-55); Mean Corpuscular Hemoglobin 31.0 pg (27-33); Mean Corpuscular Volume 89.3 fl (82-101); Nucleated Red Blood Cells % 0 %; Platelet Count 166 10^3/cmm (157-399); Red Blood Count 4.39 10^6/uL (3.85-5.65); White Blood Count 6.98 10^3/uL (3.29-11.43)
[2025-01-27 07:14] LABS: Alanine Aminotransferase 25 U/L (0-41); Albumin Level 3.4 g/dL (3.5-5.2); Alkaline Phosphatase 116 U/L (40-130); Anion Gap 13.5 (5-19); Aspartate Amino Transferase 37 U/L (0-40); Blood Urea Nitrogen 9 mg/dL (6-20); Calcium 8.3 mg/dL (8.5-10.5); Carbon Dioxide 25 mmol/L (22-29); Chloride 103 mmol/L (98-107); Creatinine Clr Calc Pharmacy 128.6788; Globulin 2.5 g/dL (1.3-4.6); Glucose 90 mg/dL (65-115); Magnesium 2.1 mg/dL (1.7-2.3); Osmolality Calculated 284 mOsm/kg (285-295); Potassium 3.5 mmol/L (3.5-5.1); Sodium 138 mmol/L (136-145); Total Protein 5.9 g/dL (6.6-8.7)
[2025-01-27] MEDS: heparin 5,000 unit/mL INJ 1 mL 5000 UNIT SUBCUT ×3 (08:49→23:04)
[2025-01-27] MEDS: piperacillin-tazobactam 3.375 GM in sodium chloride 0.9% (plus) 50 ML IV ×2 (08:50→15:54)
[2025-01-27] MEDS: metoprolol succinate ER (24 HR) 25 mg Tablet PO (08:50)
[2025-01-27] MEDS: pantoprazole 40 mg SDV IVP (08:51)
--- NOTE | 2025-01-27 10:40 | P.PN_ITS ---
<Statement entered by Sam Vargas MD - 01/28/25 20:08> Patient was evaluated and cared for in conjunction with an advanced practice practitioner. I personally examined the patient and reviewed the chart and all pertinent data including imaging, telemetry, and laboratory results. I discussed the patient in detail with the advanced practice practitioner. Please see their note for complete H&P testing result and agreed upon plan of care for the patient. Subjective 2 Subjective: He was extubated yesterday, no events noted overnight other than intermittent fever. Temperatures ranged between 99.8 and 100.3 so far today. Antibiotic treatment for pneumonia continues. He has been cleared by speech for advancing diet. He notes some chest pain that seems to be worsened by movement and deep breathing. Vitals/I&O/Wt Last Vital Signs Temp 98.6 F 01/27/25 12:00 Pulse 69 01/27/25 12:00 Resp 17 01/27/25 12:00 BP 118/81 01/27/25 12:00 Pulse Ox 95 01/27/25 11:00 O2 Del Method Room Air 01/27/25 10:10 O2 Flow Rate 2 01/23/25 16:57 FiO2 30 01/26/25 09:24 01/26/25 01/27/25 01/27/25 22:59 06:59 14:59 Intake Total 900 / 2049.380 540 / 2049.380 750 / 750 Output Total 2300 / 2300 0 / 2300 Balance -1400 / -250.620 540 / -250.620 750 / 750 Weight last 48 hrs Weight 181 lb Weight 180 lb 12.465 oz Physical Exam 2 Const: COMMON NORMALS: no acute distress and patient oriented x3 GENERAL APPEARANCE: cooperative and comfortable ORIENTATION/CONSCIOUSNESS: Yes awake, Yes oriented to person, Yes oriented to place and Yes oriented to time Chest: COMMONS NORMALS: normal inspection of the chest and normal palpation of entire chest wall CHEST: Yes Symmetrical chest wall rise Resp: COMMON NORMALS: normal respiratory effort, No retractions, No use of accessory muscles and clear to auscultation bilaterally EFFORT & INSPECTION: Yes symmetric chest movement AUSCULTATION: clear to auscultation bilaterally Cardio: COMMON NORMALS: regular rate, regular rhythm, S1 normal heart sound present, S2 normal heart sound present, No gallops present (Cardio), No clicks present (Cardio), No murmurs present (Cardio) and No rub (Cardio) RATE: r egular rate RHYTHM: regular rhythm HEART SOUNDS: S1 normal heart sound present and S2 normal heart sound present PERIPHERAL PULSES: radial pulses present Extremity: COMMON NORMALS: no pedal edema Neuro: COMMON NORMALS: patient oriented x3 and moves all extremities S ENSORIUM/ORIENTATION: Yes oriented to person, Yes oriented to place and Yes oriented to time Urinary Catheter Management: Bird: Cath Placed During This Visit: yes, but has since been removed by the nurse Reason for Continuing Indwelling Catheter: Not indwelling catheter Urinary Catheter Date of Insertion: 01/23/25 Urinary Catheter Time of Insertion: 19:50 Date Urinary Catheter Removed: 01/26/25 Time Urinary Catheter Discontinued: 13:00 Data 01/27/25 06:46 01/27/25 06:46 Micro: Microbiology 01/25/25 16:05 Gram Stain - Final Sputum - Endotracheal Wash Sputum Culture - Preliminary Coag positive Staphylococcus 01/24/25 13:50 Gram Stain - Final Sputum - Endotracheal Tube Aspirate Sputum Culture - Final A&P Assessment and plan 1. STEMI (ST elevation myocardial infarction): 2. Acute systolic congestive heart failure: 3. Acute pneumonia: Plan: We discussed with him his treatment so far now that he is alert and oriented. He reports a history of smoking, but states that he is quitting as of now. For the chest pain, which could be myocarditis post STEMI and PCI, will start Imdur 15 mg twice daily, metoprolol succinate 25 mg started this morning. Will also add on Entresto 24/26 mg twice daily for management of CHF. Continue aspirin, Plavix, statin. PDMP PDMP Reviewed: Not Reviewed Attestations 2 Medical Necessity Statement*: STEMI, medical management of new onset systolic CHF Coding Level of Care Code Acute Code for [facility] Diagnoses STEMI (ST elevation myocardial infarction) I21.3 Acute systolic congestive heart failure I50.21 Heart failure type: systolic Heart failure chronicity: acute Acute pneumonia J18.9
--- NOTE | 2025-01-27 11:55 | P.PN_ITS ---
Subjective 2 Subjective: Seen this morning. Overnight complained of chest pain which was relieved by nitro. EKG did show mild ST changes in inferior leads. Vitals/I&O/Wt Last Vital Signs Temp 98.6 F 01/27/25 08:00 Pulse 78 01/27/25 10:10 Resp 16 01/27/25 10:00 BP 127/81 01/27/25 10:00 Pulse Ox 97 01/27/25 10:10 O2 Del Method Room Air 01/27/25 10:10 O2 Flow Rate 2 01/23/25 16:57 FiO2 30 01/26/25 09:24 01/26/25 01/27/25 01/27/25 22:59 06:59 14:59 Intake Total 900 / 1509.380 540 / 2049.380 450 / 450 Output Total 2300 / 2300 0 / 2300 Balance -1400 / -790.620 540 / -250.620 450 / 450 Weight last 48 hrs Weight 82.1 kg Weight 82 kg Physical Exam 2 Narrative: General: Alert oriented x 3, family at bedside. HEENT: PERRLA, pupils bilaterally equal and reactive Chest: Clear to auscultation bilaterally no wheezes no rhonchi CVS: S1-S2 regular, no murmurs, no tachycardia, Abdomen: Soft, nontender, bowel sounds present neuro: Nonfocal Urinary Catheter Management: Bird: Cath Placed During This Visit: yes, but has since been removed by the nurse Reason for Continuing Indwelling Catheter: Not indwelling catheter Urinary Catheter Date of Insertion: 01/23/25 Urinary Catheter Time of Insertion: 19:50 Date Urinary Catheter Removed: 01/26/25 Time Urinary Catheter Discontinued: 13:00 Data 01/27/25 06:46 01/27/25 06:46 Micro: Microbiology 01/24/25 13:50 Gram Stain - Final Sputum - Endotracheal Tube Aspirate Sputum Culture - Final 01/25/25 16:05 Gram Stain - Final Sputum - Endotracheal Wash Sputum Culture - Preliminary A&P Assessment and plan 1. STEMI (ST elevation myocardial infarction): Post PCI to RCA. Continue with DAPT, statin. Check A1c, lipid panel. Appreciate echocardiogram. Hold off on beta-itzel given soft blood pressures. 2. Acute hypoxic respiratory failure: Currently on mechanical ventilation. Could not tolerate extubation because of agitation. Oxygen supplementation keeping saturation over 88%. Daily ABG, chest x-ray. Continue sedation with propofol and fentanyl. Will try to wean sedation in next 24 hours for trial of extubation in a.m. tomorrow. 3. Ischemic cardiomyopathy: Echocardiogram done shows EF of 45 to 50% with severe hypokinesia of inferior lateral and inferior yusuf, hypokinetic RV. MR. 4. Acute systolic congestive heart failure: Currently euvolemic. Continue with fluids. Watch for fluid overload. Plan: Shock: Keep mean artery pressure 65. Cheetah examination shows patient being fluid responsive. Will plan for 2 L IV fluid bolus. Continue with NS at 100 cc/h. Wean Levophed accordingly. Heparin for DVT prophylaxis Protonix for PUD prophylaxis N.p.o. 01/25/[address] and head ct post pci to rca check hba1cm lipid panel urine drug screen pending hold off on BB given soft BP on levophed 3 mics Continue sedation with propofol and fentanyl. Will try to wean sedation in next 24 hours for trial of extubation in a.m. tomorrow. Echocardiogram done shows EF of 45 to 50% with severe hypokinesia of inferior lateral and inferior yusuf, hypokinetic RV. MRVentura Consult pulmonology for patient weaning and sedation management considering the complexity of the case. Talked with Dr. Camarena, he will review the case. Chest ct shows: right LL pna check procal, start vanc zosyn azithro check sputum sample blood cultures order lasix 40 IV x1 stop IV fluids updated patients mom and gf in detail 01/26/2025 ct chest shows: RLL PNA, possibly patient aspirated, continue abx continue iV abx check strep legionella antigen, continue protonix 40 iv daily continue seroquel 50 daily check procal sputum culture blood cultures pending lasix 40 iv given yesterday order another lasix 40 iv this am wean sedation, sbt and plan to extubate today to start diet after extubation, - CHECK speech therapy PT/OT post extubation care still febrile 100 F will require > 2 midnight stay for treatment of pneumonia appreciate recs from IP. 01/27/2025 seen this morning advance diet to cardiac diet continue antibiotics for pna ekg overnight had T wave changes paired with cp relieved with nitro await cardio recs transfer to [facility] today pt/ot PDMP PDMP Reviewed: Not Reviewed Attestations 2 Medical Necessity Statement*: pneumonia, STEMI Diagnoses STEMI (ST elevation myocardial infarction) I21.3 Acute hypoxic respiratory failure J96.01 Ischemic cardiomyopathy I25.5 Acute systolic congestive heart failure I50.21 Heart failure chronicity: acute Heart failure type: systolic
[2025-01-27 12:09] LABS: Marijuana(Tetrahydrocannabino) negative
[2025-01-28] VITALS (15 sets, daily range): BP systolic 93–133; BP diastolic 54–96; PULSE 66–77; RESP 16–24; TEMP 36.3–36.4; O2SAT 92–98
[2025-01-28] MEDS: piperacillin-tazobactam 3.375 GM in sodium chloride 0.9% (plus) 50 ML IV ×2 (00:53→09:28)
[2025-01-28 04:12] LABS: Hematocrit 39.1 % (37-53); Hemoglobin 13.40 g/dL (11.27-16.99); Mean Corpuscular HGB Conc 34.3 g/dL (30-55); Mean Corpuscular Hemoglobin 31.0 pg (27-33); Mean Corpuscular Volume 90.5 fl (82-101); Nucleated Red Blood Cells % 0 %; Platelet Count 196 10^3/cmm (157-399); Red Blood Count 4.32 10^6/uL (3.85-5.65); White Blood Count 5.50 10^3/uL (3.29-11.43)
[2025-01-28 04:37] LABS: Alanine Aminotransferase 21 U/L (0-41); Albumin Level 3.0 g/dL (3.5-5.2); Alkaline Phosphatase 110 U/L (40-130); Anion Gap 14.4 (5-19); Aspartate Amino Transferase 24 U/L (0-40); Blood Urea Nitrogen 7 mg/dL (6-20); Calcium 8.7 mg/dL (8.5-10.5); Carbon Dioxide 22 mmol/L (22-29); Chloride 107 mmol/L (98-107); Creatinine Clr Calc Pharmacy 147.0615; Globulin 3.0 g/dL (1.3-4.6); Glucose 139 mg/dL (65-115); Magnesium 2.1 mg/dL (1.7-2.3); Osmolality Calculated 290 mOsm/kg (285-295); Potassium 3.4 mmol/L (3.5-5.1); Sodium 140 mmol/L (136-145); Total Protein 6.0 g/dL (6.6-8.7)
[2025-01-28] MEDS: heparin 5,000 unit/mL INJ 1 mL 5000 UNIT SUBCUT (07:34)
[2025-01-28] MEDS: metoprolol succinate ER (24 HR) 25 mg Tablet PO (08:39)
[2025-01-28] MEDS: pantoprazole 40 mg SDV IVP (08:41)
--- NOTE | 2025-01-28 09:14 | P.PN_ITS ---
Subjective 2 Subjective: Chest pain has resolved with the medication changes made yesterday. He has been afebrile for 24 hours. Lung sounds are clear, pneumonia appears to be resolving. Blood pressure and heart rate well-controlled, tolerating Entresto well. He appears euvolemic. Vitals/I&O/Wt Last Vital Signs Temp 97.5 F L 01/28/25 04:00 Pulse 66 01/28/25 08:00 Resp 16 01/28/25 08:00 BP 105/70 01/28/25 08:00 Pulse Ox 94 01/28/25 08:00 O2 Del Method Room Air 01/28/25 05:00 O2 Flow Rate 2 01/23/25 16:57 FiO2 30 01/26/25 09:24 01/27/25 01/28/25 01/28/25 22:59 06:59 14:59 Intake Total 540 / 2070 780 / 2070 Output Total 650 / 650 Balance -110 / 1420 780 / 1420 Weight last 48 hrs Weight 171 lb 15.369 oz Weight 181 lb Physical Exam 2 Const: COMMON NORMALS: no acute distress and patient oriented x3 GENERAL APPEARANCE: cooperative ORIENTATION/CONSCIOUSNESS: Yes awake, Yes oriented to person, Yes oriented to place and Yes oriented to time Chest: COMMONS NORMALS: normal inspection of the chest and normal palpation of entire chest wall CHEST: Yes Symmetrical chest wall rise Resp: COMMON NORMALS: normal respiratory effort, No retractions, No use of accessory muscles and clear to auscultation bilaterally AUSCULTATION: clear to auscultation bilaterally Cardio: COMMON NORMALS: regular rate, regular rhythm, S1 normal heart sound present, S2 normal heart sound present, No gallops present (Cardio), No clicks present (Cardio), No murmurs present (Cardio) and No rub (Cardio) RATE: r egular rate RHYTHM: regular rhythm HEART SOUNDS: S1 normal heart sound present and S2 normal heart sound present PERIPHERAL PULSES: radial pulses present positive right 2+ and femoral pulses present positive right 2+ Neuro: COMMON NORMALS: patient oriented x3 and moves all extremities S ENSORIUM/ORIENTATION: Yes oriented to person, Yes oriented to place and Yes oriented to time Skin: WOUNDS: Yes surgical site (no hematoma palpable) Details: no odor Urinary Catheter Management: Bird: Cath Placed During This Visit: yes, but has since been removed by the nurse Reason for Continuing Indwelling Catheter: Not indwelling catheter Urinary Catheter Date of Insertion: 01/23/25 Urinary Catheter Time of Insertion: 19:50 Date Urinary Catheter Removed: 01/26/25 Time Urinary Catheter Discontinued: 13:00 Data 01/28/25 03:43 01/28/25 03:43 Micro: Microbiology 01/25/25 16:05 Gram Stain - Final Sputum - Endotracheal Wash Sputum Culture - Preliminary Coag positive Staphylococcus A&P Assessment and plan 1. STEMI (ST elevation myocardial infarction): 2. Acute systolic congestive heart failure: 3. Ischemic cardiomyopathy: Plan: He can discharge home today on oral antibiotics if okay with hospitalist service. Appreciate their management of pneumonia. Will discharge on Entresto 24/26 mg twice daily, isosorbide mononitrate 15 mg twice a day, metoprolol succinate 25 mg daily, aspirin, Plavix, atorvastatin 80 mg daily. PDMP PDMP Reviewed: Not Reviewed Coding Level of Care Code Acute Code for [facility] Diagnoses STEMI (ST elevation myocardial infarction) I21.3 Acute systolic congestive heart failure I50.21 Heart failure chronicity: acute Heart failure type: systolic Ischemic cardiomyopathy I25.5
--- NOTE | 2025-01-28 09:15 | P.DS_ITS ---
<Statement entered by Sam Vargas MD - 01/28/25 20:02> Patient was evaluated and cared for in conjunction with an advanced practice practitioner. I personally examined the patient and reviewed the chart and all pertinent data including imaging, telemetry, and laboratory results. I discussed the patient in detail with the advanced practice practitioner. Please see their note for complete H&P testing result and agreed upon plan of care for the patient. Discharge Providers Date of Admission: 01/23/25 18:35 Date of Discharge: January 28, 2025 Attending Provider at Admission: Thai Wilkerson M.D Attending Provider at Discharge: Thai Wilkerson M.D Primary Care Provider: Contreras Kramer MD Diagnoses at Discharge Discharge Diagnosis 1. STEMI (ST elevation myocardial infarction): 2. Acute systolic congestive heart failure: 3. Ischemic cardiomyopathy: Reason for Visit Reason for Visit: chest pain Brief History: Contreras Aponte is a 44 year old male with no significant prior cardiac history has presented with about 1 hour of severe substernal chest pain. He has been having on and off chest discomfort for the last week. Yesterday he felt he was having a anxiety attack. EKG is consistent with acute inferior wall ST elevation NE. 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 He was very agitated with severe shortness of breath, required sedation and intubation in order to complete the procedure. Postprocedure course was complicated by agitation, difficulty weaning from the ventilator, he developed pneumonia possibly due to aspiration. He was febrile intermittently, pneumonia was treated with IV antibiotics with good resolution of fever and symptoms. He was evaluated after extubation by speech therapy, no swallowing difficulties noted and cleared for regular diet. He had some chest pain that seemed to be myocarditis or musculoskeletal pain, that has resolved after starting isosorbide mononitrate. Due to systolic CHF with LVEF 40 to 45% he was started on Entresto 24/26 mg 1 tablet twice a day as well as metoprolol succinate 25 mg daily which he has tolerated well. Will plan to uptitrate medications if possible as an outpatient. Today he is doing well, no chest pain, no fever for over 24 hours, no shortness of breath, appears euvolemic, blood pressure well-controlled. Will discharge home today with prescription for Levaquin 750 mg daily x 12 days to complete a 14-day course. Continue aspirin, Plavix, statin. Follow-up in cardiology clinic in 7 to 10 days for reevaluation. Physical Exam Const: COMMON NORMALS: no acute distress and patient oriented x3 GENERAL APPEARANCE: cooperative and comfortable ORIENTATION/CONSCIOUSNESS: Yes awake, Yes oriented to person, Yes oriented to place and Yes oriented to time Chest: COMMONS NORMALS: normal inspection of the chest and normal palpation of entire chest wall CHEST: Yes Symmetrical chest wall rise Resp: COMMON NORMALS: normal respiratory effort, No retractions, No use of accessory muscles and clear to auscultation bilaterally EFFORT & INSPECTION: Yes symmetric chest movement AUSCULTATION: clear to auscultation bilaterally Cardio: COMMON NORMALS: regular rate, regular rhythm, S1 normal heart sound present, S2 normal heart sound present, No gallops present (Cardio), No clicks present (Cardio), No murmurs present (Cardio) and No rub (Cardio) RATE: regular rate RHYTHM: regular rhythm HEART SOUNDS: S1 normal heart sound present and S2 normal heart sound present PERIPHERAL PULSES: radial pulses present Extremity: COMMON NORMALS: no pedal edema Neuro: COMMON NORMALS: patient oriented x3 and moves all extremities SENSORIUM/ORIENTATION: Yes oriented to person, Yes oriented to place and Yes oriented to time Urinary Catheter Management: Bird: Cath Placed During This Visit: yes, but has since been removed by the nurse Reason for Continuing Indwelling Catheter: Not indwelling catheter Urinary Catheter Date of Insertion: 01/23/25 Urinary Catheter Time of Insertion: 19:50 Date Urinary Catheter Removed: 01/26/25 Time Urinary Catheter Discontinued: 13:00 Discharge Data Studies Completed and Pending Completed Studies During Hospitalization Category Date Time Status CT chest wo con [id number] Routine Cat Scan 01/25/25 10:[address] head wo con* [id number] Routine Cat Scan 01/25/25 10:10 Completed XR chest 1V portable [id number] Routine Exams 01/23/25 20:26 Completed XR chest 1V portable [id number] Routine Exams 01/23/25 23:21 Completed XR chest 1V portable [id number] Routine Exams 01/24/25 10:20 Completed XR chest 1V portable [id number] Stat Exams 01/23/25 16:56 Completed CV. echo complete* [id number] Routine Ultrasound 01/24/25 18:44 Completed Pending at discharge Category Date Time Status PROJECT DEVELOPMENT COORDINATOR request for service Stat Exams 01/23/25 16:37 Taken Bacterial Antigen Stat Lab 01/26/25 10:06 Ordered Complete Blood Count w/Auto AM LABS Lab 01/29/25 04:00 Ordered Comprehensive Metabolic Panel AM LABS Lab 01/29/25 04:00 Ordered Legionella Antigen STAT Stat Lab 01/26/25 10:06 Ordered Magnesium AM LABS Lab 01/29/25 04:00 Ordered Radiology Impressions Chest X-Ray 01/24/25 10:20 IMPRESSION: Stable atelectatic changes at the right lung base. Chest CT 01/25/25 10:10 IMPRESSION: 1. Trace bilateral pleural fluid with compressive atelectasis RIGHT greater than LEFT lower lobes. Air bronchograms in the RIGHT lower lobe. Recommend cherie elation for pneumonia. 2. Subsegmental atelectasis in the RIGHT middle lobe. 3. Endotracheal tube and enteric tubes in place. 4. No other acute findings. Head CT 01/25/25 10:10 IMPRESSION: 1. No evidence of intracranial hemorrhage or mass effect. 2. No acute intracranial findings. Laboratory Results WBC 5.50 10^3/uL (3.29-11.43) 01/28/25 03:43 RBC 4.32 10^6/uL (3.85-5.65) 01/28/25 03:43 Hgb 13.40 g/dL (11.27-16.99) 01/28/25 03:43 Hct 39.1 % (37-53) 01/28/25 03:43 MCV 90.5 fl (82-101) 01/28/25 03:43 MCH 31.0 pg (27-33) 01/28/25 03:43 MCHC 34.3 g/dL (30-55) 01/28/25 03:43 RDW 13.2 % (12.1-15.1) 01/28/25 03:43 Plt Count 196 10^3/cmm (157-399) 01/28/25 03:43 MPV 10.3 fL (7.4-10.4) 01/28/25 03:43 Neut % (Auto) 58.5 % 01/28/25 03:43 Lymph % (Auto) 23.8 % 01/28/25 03:43 [place] % (Auto) 12.0 % 01/28/25 03:43 Eos % (Auto) 4.9 % 01/28/25 03:43 Baso % (Auto) 0.4 % 01/28/25 03:43 Neut # (Auto) 3.22 10^3/uL (1.8-7.7) 01/28/25 03:43 Lymph # (Auto) 1.3 10^3/uL (0.8-4.8) 01/28/25 03:43 [place] # (Auto) 0.7 10^3/uL (0.2-0.9) 01/28/25 03:43 Eos # (Auto) 0.3 10^3/uL (0.0-0.8) 01/28/25 03:43 Baso # (Auto) 0.0 10^3/uL (0.0-0.1) 01/28/25 03:43 Nucleated RBC % (auto) 0 % 01/28/25 03:43 Nucleated RBCs # 0.0 /100WBC 01/28/25 03:43 APTT 26.3 SECONDS (23.9-36.7) 01/24/25 00:30 Specimen Type Arterial 01/26/25 03:15 Sample Site Brachial, right 01/26/25 03:15 ABG pH 7.38 (7.35-7.45) 01/26/25 03:15 ABG pCO2 39.0 mmHg (35-45) 01/26/25 03:15 ABG pO2 79.9 mmHg (80.0-100.0) L 01/26/25 03:15 ABG PO2/FiO2 Ratio 199 01/26/25 03:15 ABG HCO3 23.2 mmol/L (22-26) 01/26/25 03:15 ABG O2 Saturation 96.5 01/26/25 03:15 ABG Base Excess -1.7 mmol/L (-2.0-2.0) 01/26/25 03:15 Collin Test Pos 01/26/25 03:15 A-a O2 Gradient 20.6 mmHg (5-10) H 01/26/25 03:15 Hematocrit 42.2 % (42-52) 01/26/25 03:15 Hgb O2 Saturation 95.4 % (95-100) 01/26/25 03:15 Carboxyhemoglobin 0.7 %THgb (0.4-20.1) 01/26/25 03:15 Methemoglobin 0.4 % (0.4-1.5) 01/26/25 03:15 Total Hemoglobin 13.8 g/dL (14-18) L 01/26/25 03:15 Sodium 137.0 mmol/L (131-143) 01/26/25 03:15 Potassium 3.7 mmol/L (3.5-5.0) 01/26/25 03:15 Glucose 75.0 mg/dL (70-115) 01/26/25 03:15 Ionized Calcium 1.1 mmol/L (1.1-1.4) 01/26/25 03:15 O2 Delivery Device Vent 01/26/25 03:15 FiO2 40.0 % 01/26/25 03:15 Tidal Volume 0.50 01/26/25 03:15 PEEP 8.0 cmH20 01/26/25 03:15 Principal Data Architect ID Bd 01/26/25 03:15 Sodium 140 mmol/L (136-145) 01/28/25 03:43 Potassium 3.4 mmol/L (3.5-5.1) L 01/28/25 03:43 Chloride 107 mmol/L (98-107) 01/28/25 03:43 Carbon Dioxide 22 mmol/L (22-29) 01/28/25 03:43 Anion Gap 14.4 (5-19) 01/28/25 03:43 BUN 7 mg/dL (6-20) 01/28/25 03:43 Creatinine 0.7 mg/dL (0.7-1.2) 01/28/25 03:43 GFR Calculation 122.0 mL/min (90-130) 01/28/25 03:43 Glucose 139 mg/dL (65-115) H 01/28/25 03:43 POC Glucose 116 mg/dL (70-110) H 01/24/25 11:15 Estimat Average Glucose 103 01/24/25 03:30 Hemoglobin A1c 5.2 % (4.0-6.0) 01/24/25 03:30 Calculated Osmolality 290 mOsm/kg (285-295) 01/28/25 03:43 Lactic Acid 1.2 mmol/L (0.5-2.2) 01/23/25 23:37 Calcium 8.7 mg/dL (8.5-10.5) 01/28/25 03:43 Magnesium 2.1 mg/dL (1.7-2.3) 01/28/25 03:43 Iron 35 ug/dL (59-158) L 01/24/25 03:30 TIBC 205 mcg/dl 01/24/25 03:30 % Saturation 17.0 % (20-50) L 01/24/25 03:30 Unsat Iron Binding 170 ug/dL (112-347) 01/24/25 03:30 Total Bilirubin 0.4 mg/dL (0.15-1.2) 01/28/25 03:43 AST 24 U/L (0-40) 01/28/25 03:43 ALT 21 U/L (0-41) 01/28/25 03:43 Alkaline Phosphatase 110 U/L (40-130) 01/28/25 03:43 Troponin T Baseline 12 ng/L (0-15) 01/23/25 16:39 Troponin T 120 Minute 1881 ng/L (0-15) H 01/23/25 19:08 Delta Troponin T 1869 ABS# (0-10) H* 01/23/25 19:08 Troponin T Hi Sens 6Hr 3602 ng/L (0-15) H 01/23/25 22:54 Troponin T Hi Sens 6Hr Delta 3590 ng/L (0-12) H* 01/23/25 22:54 C-Reactive Protein 3.0 mg/L (0.0-4.9) 01/23/25 23:37 Total Protein 6.0 g/dL (6.6-8.7) L 01/28/25 03:43 Albumin 3.0 g/dL (3.5-5.2) L 01/28/25 03:43 Globulin 3.0 g/dL (1.3-4.6) 01/28/25 03:43 Vitamin B12 920 pg/mL (232-1245) 01/24/25 03:30 Folate 5.3 ng/mL (4.5-32.2) 01/25/25 04:00 Procalcitonin 0.12 ng/mL (0-0.5) 01/25/25 04:00 TSH 3.45 uIU/mL (0.27-4.20) 01/25/25 04:00 Urine Color Yellow (Yellow) 01/23/25 18:54 Urine Appearance Clear (CLEAR) 01/23/25 18:54 Urine pH 7.5 (5-7) 01/23/25 18:54 Ur Specific Dupont 1.066 (1.005-1.030) H 01/23/25 18:54 Urine Protein 1+ (Negative) A 01/23/25 18:54 Urine Glucose (UA) 1+ (Normal) H 01/23/25 18:54 Urine Ketones Trace (Negative) 01/23/25 18:54 Urine Blood Negative (Negative) 01/23/25 18:54 Urine Nitrate Negative (Negative) 01/23/25 18:54 Urine Bilirubin Negative (Negative) 01/23/25 18:54 Urine Urobilinogen 1.0 mg/dL (Negative) 01/23/25 18:54 Ur Leukocyte Esterase Negative (Negative) 01/23/25 18:54 Urine RBC 0-2 /hpf (0-2) 01/23/25 18:54 Urine WBC 0-5 /hpf (0-5) 01/23/25 18:54 Ur Squamous Epith Cells 0-5 /hpf (0-5) 01/23/25 18:54 Amorphous Sediment Not Reportable 01/23/25 18:54 Urine Bacteria None seen /hpf (NONE) 01/23/25 18:54 Hyaline Casts 4.11 /lpf 01/23/25 18:54 Vancomycin Trough 18.0 ug/mL (10-15) H 01/27/25 06:46 Butalbital Not Reportable 01/24/25 04:00 Opiates Screen negative 01/24/25 04:00 Urine Opiates Screen Positive ng/mL (Negative) H 01/23/25 18:54 Codeine Not Reportable 01/24/25 04:00 Morphine Not Reportable 01/24/25 04:00 Hydrocodone Not Reportable 01/24/25 04:00 Oxycodone Not Reportable 01/24/25 04:00 Hydromorphone Not Reportable 01/24/25 04:00 Barbiturates negative 01/24/25 04:00 Ur Barbiturates Screen Negative ng/mL (Negative) 01/23/25 18:54 Phencyclidine Screen Not Reportable 01/24/25 04:00 Phencyclidine (PCP) negative 01/24/25 04:00 Ur Phencyclidine Scrn Negative ng/mL (Negative) 01/23/25 18:54 Amphetamines Screen Not Reportable 01/24/25 04:00 Amphetamines negative 01/24/25 04:00 Ur Amphetamines Screen Negative ng/mL (Negative) 01/23/25 18:54 Methamphetamine Not Reportable 01/24/25 04:00 Methylenedioxyamph MDA Not Reportable 01/24/25 04:00 MDMA Not Reportable 01/24/25 04:00 Amobarbital Not Reportable 01/24/25 04:00 Butabarbital Not Reportable 01/24/25 04:00 Pentobarbital Not Reportable 01/24/25 04:00 Phenobarbital Not Reportable 01/24/25 04:00 Secobarbital Not Reportable 01/24/25 04:00 Alprazolam Screen Not Reportable 01/24/25 04:00 Benzodiazepines negative 01/24/25 04:00 U Benzodiazepines Scrn Negative ng/mL (Negative) 01/23/25 18:54 Nordiazepam Not Reportable 01/24/25 04:00 Desalkylflurazepam Not Reportable 01/24/25 04:00 Lorazepam Level Not Reportable 01/24/25 04:00 Oxazepam Not Reportable 01/24/25 04:00 Cocaine Not Reportable 01/24/25 04:00 Cocaine Metabolite negative 01/24/25 04:00 Cocaethylene Not Reportable 01/24/25 04:00 Urine Cocaine Screen Negative ng/mL (Negative) 01/23/25 18:54 Benzoylecgonine Confrm Not Reportable 01/24/25 04:00 Tetrahydrocannabinol negative 01/24/25 04:00 Delta-9 THC Not Reportable 01/24/25 04:00 Delta-9 Carboxy THC Not Reportable 01/24/25 04:00 U Marijuana (THC) Screen Negative ng/mL (Negative) 01/23/25 18:54 Drug Screen Comment See note 01/24/25 04:00 Vitals Last Vital Signs Temp 97.5 F L 01/28/25 04:00 Pulse 66 01/28/25 08:00 Resp 16 01/28/25 08:00 BP 105/70 01/28/25 08:00 Pulse Ox 94 01/28/25 08:00 O2 Del Method Room Air 01/28/25 05:00 O2 Flow Rate 2 01/23/25 16:57 FiO2 30 01/26/25 09:24 Discharge Plan Discharge Patient Disposition: Home Condition: Stable Prescriptions: New aspirin 81 mg Tablet,Delayed Release (Dr/Ec) 81 mg PO DAILY Qty: 30 0RF atorvastatin 40 mg Tablet 80 mg PO BEDTIME Qty: 30 0RF clopidogrel 75 mg Tablet 75 mg PO DAILY Qty: 30 0RF isosorbide mononitrate 30 mg Tablet Extended Release 24 Hr 15 mg PO BID Qty: 30 0RF metoprolol succinate 25 mg Tablet Extended Release 24 Hr 25 mg PO DAILY Qty: 30 0RF sacubitril-valsartan [Entresto] 24-26 mg Tablet 1 tab PO BID Qty: 60 0RF omeprazole 20 mg tablet,delayed release (DR/EC) 20 mg PO DAILY 28 Days Qty: 30 0RF levofloxacin 750 mg tablet 750 mg PO DAILY 10 Days Qty: 12 0RF Flight Test Engineer OK for DC: Hospitalist Discharge Order = DC NOW: Discharge Order (Routine); Ordered 01/28/25 Ordered By: Yohana Romero Referrals: Thai Wilkerson M.D [Physician, Cardiology] - 1 month Referral Note: after follow up with Yohana Romero will schedule appointment follow up with Yohana Hancock FNP [Nurse Practitioner, Cardiology] - 02/16/25 2:30 pm Contreras Kramer MD [Primary Care Provider, Family Practice] - 02/04/25 12:40 pm Discharge Diet: Cardiac Discharge Activity: Limit activity as instructed Patient Instructions: Metoprolol (By mouth) (Lopressor, Toprol XL), Aspirin (By mouth), Omeprazole (By mouth) (Prilosec, Prilosec OTC, Omeclamox-Anuj, First..., Isosorbide Mononitrate (By mouth), Atorvastatin (By mouth) (Lipitor, Atorvaliq), Levofloxacin (By mouth) (Levaquin, Levaquin Leva-anuj), Clopidogrel (By mouth) (Plavix), Sacubitril/Valsartan (By mouth) (Entresto, Entresto Sprinkle), Heart Attack (DC), Coronary Angioplasty (DC), Restrictive Cardiomyopathy (DC), Chest Pain Stoplight, Opioid Safety, Post Angiogram Home Care Instructions, Post Heart Attack Stoplight, Patient Portal & Mariluz Instructions Discharge Attestations Time Spent in Discharge Care*: less than 30 min Quality Metrics Clinical Quality Measures [ Acute Myocardial Infaction { Clinical Trial Participant: No; Contraindication to aspirin: None; Aspirin prescribed; Contraindication to statin: None; Statin prescribed; Contraindication to PCI: None; PCI performed;}] Coding Level of Care Code Acute Code for g Fwd Diagnoses STEMI (ST elevation myocardial infarction) I21.3 Acute systolic congestive heart failure I50.21 Heart failure type: systolic Heart failure chronicity: acute Ischemic cardiomyopathy I25.5
--- NOTE | 2025-01-28 11:30 | P.PN_ITS ---
Vitals/I&O/Wt Last Vital Signs Temp 97.5 F L 01/28/25 04:00 Pulse 66 01/28/25 08:00 Resp 16 01/28/25 08:00 BP 105/70 01/28/25 08:00 Pulse Ox 94 01/28/25 08:00 O2 Del Method Room Air 01/28/25 05:00 O2 Flow Rate 2 01/23/25 16:57 FiO2 30 01/26/25 09:24 01/27/25 01/28/25 01/28/25 22:59 06:59 14:59 Intake Total 540 / 1290 780 / 2070 450 / 450 Output Total 650 / 650 Balance -110 / 640 780 / 1420 450 / 450 Weight last 48 hrs Weight 78 kg Weight 82.1 kg Physical Exam 2 Narrative: General: Alert oriented x 3, family at bedside. HEENT: PERRLA, pupils bilaterally equal and reactive Chest: Clear to auscultation bilaterally no wheezes no rhonchi CVS: S1-S2 regular, no murmurs, no tachycardia, Abdomen: Soft, nontender, bowel sounds present neuro: Nonfocal Urinary Catheter Management: Bird: Cath Placed During This Visit: yes, but has since been removed by the nurse Reason for Continuing Indwelling Catheter: Not indwelling catheter Urinary Catheter Date of Insertion: 01/23/25 Urinary Catheter Time of Insertion: 19:50 Date Urinary Catheter Removed: 01/26/25 Time Urinary Catheter Discontinued: 13:00 Data 01/28/25 03:43 01/28/25 03:43 Micro: Microbiology 01/25/25 16:05 Gram Stain - Final Sputum - Endotracheal Wash Sputum Culture - Final Staphylococcus aureus A&P Assessment and plan 1. STEMI (ST elevation myocardial infarction): Post PCI to RCA. Continue with DAPT, statin. Check A1c, lipid panel. Appreciate echocardiogram. Hold off on beta-itzel given soft blood pressures. 2. Acute hypoxic respiratory failure: Currently on mechanical ventilation. Could not tolerate extubation because of agitation. Oxygen supplementation keeping saturation over 88%. Daily ABG, chest x-ray. Continue sedation with propofol and fentanyl. Will try to wean sedation in next 24 hours for trial of extubation in a.m. tomorrow. 3. Ischemic cardiomyopathy: Echocardiogram done shows EF of 45 to 50% with severe hypokinesia of inferior lateral and inferior yusuf, hypokinetic RV. MR. 4. Acute systolic congestive heart failure: Currently euvolemic. Continue with fluids. Watch for fluid overload. Plan: Shock: Keep mean artery pressure 65. Cheetah examination shows patient being fluid responsive. Will plan for 2 L IV fluid bolus. Continue with NS at 100 cc/h. Wean Levophed accordingly. Heparin for DVT prophylaxis Protonix for PUD prophylaxis N.p.o. 01/25/[address] and head ct post pci to rca check hba1cm lipid panel urine drug screen pending hold off on BB given soft BP on levophed 3 mics Continue sedation with propofol and fentanyl. Will try to wean sedation in next 24 hours for trial of extubation in a.m. tomorrow. Echocardiogram done shows EF of 45 to 50% with severe hypokinesia of inferior lateral and inferior yusuf, hypokinetic RV. Consult pulmonology for patient weaning and sedation management considering the complexity of the case. Talked with Dr. Camarena, he will review the case. Chest ct shows: right LL pna check procal, start vanc zosyn azithro check sputum sample blood cultures order lasix 40 IV x1 stop IV fluids updated patients mom and gf in detail 01/26/2025 ct chest shows: RLL PNA, possibly patient aspirated, continue abx continue iV abx check strep legionella antigen, continue protonix 40 iv daily continue seroquel 50 daily check procal sputum culture blood cultures pending lasix 40 iv given yesterday order another lasix 40 iv this am wean sedation, sbt and plan to extubate today to start diet after extubation, - CHECK speech therapy PT/OT post extubation care still febrile 100 F will require > 2 midnight stay for treatment of pneumonia appreciate recs from IP. 01/27/2025 seen this morning advance diet to cardiac diet continue antibiotics for pna ekg overnight had T wave changes paired with cp relieved with nitro await cardio recs transfer to [facility] today pt/ot 01/28/2025 Technically limited quality echocardiogram because of poor ultrasonic windows. LV systolic function is mildly reduced with EF of 40-45%. Above-mentioned regional wall motion abnormalities. RV is mildly hypokinetic. Mild mitral regurgitation No comparison studies are available. Continue aspirin atorvastatin Plavix Imdur metoprolol succinate, Entresto Sputum culture grew Staph aureus, MRSA negative Recommend Levaquin 750 daily x 12 days to complete 14-day course. Recommend patient to follow-up with cardiology and primary care doctor as outpatient. From pneumonia standpoint patient can be discharged home. Defer to cardiology for cardiological care. PDMP PDMP Reviewed: Not Reviewed Attestations 2 Medical Necessity Statement*: Defer to primary team Diagnoses STEMI (ST elevation myocardial infarction) I21.3 Acute hypoxic respiratory failure J96.01 Ischemic cardiomyopathy I25.5 Acute systolic congestive heart failure I50.21 Heart failure chronicity: acute Heart failure type: systolic
== END 2025-01-28 14:00 | disposition home or self-care (01) | DRG 321 ==
LOC: ER 16:46 → CCL 17:22 → ICU 18:35
PROVIDERS: Family Medicine; Internal Medicine; Student in an Organized Health Care Education/Training Program; Admitting Provider Internal Medicine; Emergency Provider Family Medicine; PCP Family Medicine; Visit Provider Internal Medicine
PROC: 027035Z Dilation of Coronary Artery, One Artery with Two Drug-eluting Intraluminal Devices, Percutaneous Approach (ICD-10-PCS; principal; 2025-01-23 17:00)
PROC: 027035Z Dilation of Coronary Artery, One Artery with Two Drug-eluting Intraluminal Devices, Percutaneous Approach (ICD-10-PCS; 2025-01-23 17:00)
DX: I21.11 ST elevation (STEMI) myocardial infarction involving right coronary artery (principal); I50.21 Acute systolic (congestive) heart failure; J69.0 Pneumonitis due to inhalation of food and vomit; J96.01 Acute respiratory failure with hypoxia; R57.9 Shock, unspecified; G93.40 Encephalopathy, unspecified; I25.5 Ischemic cardiomyopathy; F17.200 Nicotine dependence, unspecified, uncomplicated
CPT/HCPCS: 36415; 36416; 36600; 51702; 70450; 71045; 71250; 80048; 80051; 80053; 80202; 80306; 80307; 81001; 82330; 82607; 82746; 82805; 82962; 83036; 83540; 83550; 83605; 83735; 84145; 84443; 84484; 85025; 85347; 85730; 86140; 87070; 87077; 87186; 87205; 92523; 92526; 92610; 93005; 93306; 93454; 94002; 94003; 94799; 96372; 96374; 96375; 96376; 97110; 97116; 97162; 97165; 99152; 99153; 99291; C1725; C1769; C1874; C1887; C1894; C9606; J0360; J0461; J1200; J1644; J1938; J2060; J2250; J2270; J2405; J2470; J2543; J2704; J3010; J3372; J3373; J3490; J7030; J7040; J9999; Q0144; Q9967

== ENCOUNTER 2025-01-30 08:31 | Observation (INO) | payer OTHER, SELFPAY ==
--- OUTSIDE RECORDS SUMMARY | 2020-08-08 10:53 | XMS_ITS | Continuity of Care Document ---
Author Organization [facility] , [facility] Address [address] [address] [place] [address] Phone Care Team Providers Care Mill Control Operator Name Role Phone 1st, Care Unavailable Unavailable Allergies, Adverse Reactions, Alerts Substance Reaction Status Criticality No Known Allergies Active No Inform ation Medications Medication Instructions Dosage Effective Dates (start - stop) Status Comments citalopram 10 mg tablet take 1 tablet by oral route every day 10 MG - Active Seroquel 50 mg tablet take 1 tablet by oral route every day 50 MG - Active mupirocin 2 % topical ointment apply by topical route 3 times every day a small amount to the affected area 0.00 - Active Bactrim DS 800 mg-160 mg tablet take 1 tablet by oral route every 12 hours 1 tablet - Active sertraline 25 mg tablet take 1 tablet by oral route every day 25 MG - Active mupirocin 2 % topical ointment apply by topical route every day a small amount to the affected area Not Available - Active Ativan 2 mg tablet take 1 tablet by oral route every day as needed 2 MG - Active Procedures Procedure Date Offic/outpt E m Estab Mod Offic/outpt E m Estab Min Offic/outpt E m Estab Low I&D Simple Offic/outpt E m Estab Low Offic/outpt E m Estab Mod Offic/outpt E m Estab Low Offic/outpt E m Estab Low EKG 12 Lead; W/intrpt Offic/outpt E m New Mod-h Advance Directives Directive Yes / No Effective Date File Name No Information Encounters Encounter Description Practice Location Reason(s) For Visit Diagnoses Date Provider Providers Copied on Encounter [employer] [facility], [address] [address], [place], [place], [id number] , tel: [phone] [facility] No Information 1 1st Care. [address] [place], [place], [id number], [place]. tel:[phone] [employer] [facility], [address] [address], [place], [place], [id number] , tel: [phone] [facility] No Information 0 Lyle Johnson. [address], [id number], [place]. tel: [phone] Offic/outpt E m Estab Mod [employer] [facility], [address] [address], [place], [place], [id number] , [place] tel: [phone] [facility] Medication (chief complaint) Bipolar 1 disorderPanic attacks 0 Lyle Johnson. [address], [place], [id number], [place]. tel: [phone] Offic/outpt E m Estab Min [place] [employer] [facility], [address] [address], [place], [place], [id number] , tel: [phone] [facility] Follow Up of Laceration (chief complaint) Laceration of right upper arm without complication, initial encounter 9 Elia Travis. [address] [facility] [address], [facility], [place], [place], [id number], . tel:[phone] Offic/outpt E m Estab Low [place] [employer] [facility], [address] [address], [place], [place], [id number] , tel: [phone] [facility] Laceration (chief complaint) AbscessLaceration of right thumb with infection, subsequent encounterPain of right thumb 9 Lexii Jarvis. [address] [place] [address], [id number], [place]. tel:[phone] Offic/outpt E m [facility], [facility], [address] [address], [place], [place], [id number] , [place] tel: [phone] [facility] Follow Up of injury (chief complaint) Local infection of the skin and subcutaneous tissue, unspecifiedLacerat ion of right thumb with infection, subsequent encounterAbscess 9 Lexii Jarvis. [address] [place] [address], [id number], [place]. tel:[phone] Referring Provider: Matheus Carmona, [address] [place] [address], [address] . tel:[phone] Offic/outpt E m [facility] [employer] [facility], [address] [address], [place], [place], [id number] , [place] tel: [phone] [facility] injury (chief complaint) Laceration of right thumb with infection, subsequent encounterLocal infection of the skin and subcutaneous tissue, unspecifiedPain of right thumb 9 Lexii Jarvis. [address] [place] [address], [id number], [place]. tel:[phone] Referring Provider: Matheus Carmona, [address] [place] [address], [id number] . tel:[phone] [employer] [employer] [facility], [address] [address], [place], [place], [id number] , [place] tel: [phone] [facility] No Information 9 Lexii Jarvis. [address] [place] [address], [id number], [place]. tel:[phone] Offic/outpt E m [facility], [address] [address], [place], [id number] , tel: [phone] [facility] Laceration (chief complaint) Laceration of right thumb without damage to nail, foreign body presence unspecified, subsequent encounter 9 Lexii Jarvis. [address] [place] [address], [id number], . tel:[phone] Offic/outpt E m Estab Low [facility], [address] [address], [place], [id number] , tel: [phone] [address] [facility] Follow Up of Anxiety (chief complaint) Bipolar 1 disorderPanic attacks 9 Lexii Jarvis. [address] [place] [address], [id number], . tel:[phone] Offic/outpt E m New Mod-h [facility], [address] [place] [address], [id number] , tel: [phone] [address] Anxiety (chief complaint)B ehavior (chief complaint)A nxiety (chief complaint) PalpitationsPanic attacksBipolar 1 disorder 9 Lexii Jarvis. [address] [place] [address], [id number], . tel:[phone] Family History Family Member Type Diagnosis Age At Onset No Information Payers Payer name Insurance type Covered alliance party ID Authoriza tibenedicto(s) [facility] [id number] Social History Type Description Quantity Date Captured Comments Alcohol Use Details Unknown Caffeine Use Details Unknown Tobacco Use Status Smoking Status No Information Sex Male Sexual Orientation Straight or heterosexual Chief Complaint And Reason For Visit No Information Reason For Referral Reason For Referral No Information Plan Of Treatment Date Type Action Status Goal Tobacco cessation counseling completed Referral Ordered: Robert Abdullahi DO -Orthopedic Surgery (related to Pain of right thumb) ordered Referral Referred To: Robert Abdullahi DO [address] [place], [phone] Ordered: Referrals: Orthopedic Surgery. Robert Abdullahi DO. Evaluate and treat ordered History Of Present Illness Encounter Date Complaint History Of Prese nt Illness Medication patient interste d in changing from zoloft to an anlternate medicationdenies current side effects from seroquelstates he is fatigues taking zoloftdeiesn si or hihas tried multiple medications in the pasthas stopped due to side effects Follow Up of Lacerat ion (comments) Here today for suture removal right forearm placed on 1219 elsewhere. Healing nicely. Denies complaints. Follow Up of Laceration Laceration The patient mile es any fever and rash. Additional information: 39 yo M here for f/u WC laceration of R thumb. Patient states it still hurts and still barraza. He still has 3 pills left of the antibiotics. Follow Up of injury The patient denies any fever and rash. Additional information: here for follow-up of finger infection after initial laceration from work injury small amount of pus removed every day, does not seem to be improving with antibiotics prescribed 2 days prior. injury This is a follow up visit. The patient denies any fever and rash. Additional information: Patient notes he wound the wound on his thumb initially from my work injury started to become red with a small amount of pus coming out he is also had a constant burning sensation at the edge of the wound. Laceration Laceration (comments) Patient he re for suture removal after injury cutting thumb on a fender at work on March 03, 2019 Follow Up of Anxiety (comments) Patient here for follow-up of panic attacks and bipolar disorder. Feeling improved with ability to sleep for 11 hours last night appetite slowly coming up but still endorses a feeling of fogginess and difficulty concentrating. Never got the Ativan and has not needed it. Follow Up of Anxiety Anxiety Anxiety (comments) 38 yo M here for anxiety, nervousness, cant concentrate, jumpy/easily startled x30 days. It got really bad yesterday. He dropped about 10-15 in about 2 weeks. He took Diazepam last night but it didn't help. Reports past history of bipolar disorder previously managed on Zoloft which did seem to help. Has been off of it for several years and doing well till the past several months.Denies suicidal homicidal ideations.Endorses difficulty sleeping. Anxiety Behavior Functional Status Date Functional Assessmen t No Information Instructions Date Instruction Additional Infor jules refill seroquelccarmenalycia metcalf current medicationsall questions answered Related to Bipolar 1 disorder stop zolofttrial of citalopram as this has been useful in the pastdiscussed black box warningdiscussed side effectsreturn precautions outlinedall questions answeredclose follow up in the next three weeks to evaluate effectiveness of medications Related to Panic attacks Removed easilyRemove Steri's in 1 weekReturn to clinic if evidence infection or other complication Related to Laceration of right upper arm without complication, initial encounter Incision and drainag e performed last week, healing but still with surrounding scar tissue, distal anesthesia on lateral thumb, has well as extreme tenderness at base concerning for neuroma formationThe scar tissue may need surgical excision, Referral to local orthopedist Dr. Aleksandr Abdullahi for further evaluation and recommendations. Related to Abscess Incision and drainag e performed patient reports scant amount of purulent drainage daily but none appreciated during incision and drainage, dime sized area of scar tissue and distal anesthesia on lateral thumb.The scar tissue may need plastic surgery excision.Referral to plastic surgery placedFollow-up with Dr. Shultz next Saturday to reassess wound.Continue Bactrim and cephalexin. Related to Abscess Patient reports pers istent pain as well as some peripheral numbness in the lateral aspect of his right thumb.This is not seem to improve over the past month after injury. Once infection cleared may need referral to hand surgeon /plastic surgeon for second opinion Related to Pain of right thumb Start antibiotics ce phalexin and Bactrim. Follow-up in 2 days to reassess if incision and drainage as needed or if infection has resolved. Related to Laceration of right thumb with infection, subsequent encounter Suspect mild allergi c reaction from triple antibiotic ointment, sutures removed without issue. Apply mupirocin daily to bandage for another 1 to 2 weeks until fully healed. Worker's Comp. form filled out. Follow-up if worsening symptoms. Related to Laceration of right thumb without damage to nail, foreign body presence unspecified, subsequent encounter Tolerating sertralin e 25 and 50 mg Seroquel nightly as well. Continue this regimen may increase to 50 mg sertraline in the morning after 1 week.May increase to 100 mg Seroquel at night if needed but currently sleeping well and medications seeming to have an effect.Declines psychology evaluation at this time.Plan on follow-up with Dr. Shultz on March 15 or at [facility] to reassess. Related to Bipolar 1 disorder Patient did not oyster picker Ativan, Rx printed out and given to patient if needed. Related to Panic attacks Prior improvement on sertraline in the past reported.Given 2 mg p.o. Ativan in clinic and medical work-up today included unremarkable EKG and lab evaluation.Start 10 mg sertraline in the morning and take 50 mg Seroquel at night.Follow-up with Dr. Shultz in on Saturday to reassess response.For breakthrough anxiety may take 1 tablet of 2 mg Ativan though no driving within 6 hours of taking this medication. Related to Bipolar 1 disorder Assessments Type Assessment Date No Information Patient Care Teams Name Effective Dates (start - stop) Status Members No Information
[2025-01-30] VITALS (63 sets, daily range): BP systolic 126–176; BP diastolic 62–114; PULSE 63–86; RESP 3–33; TEMP 36.7; O2SAT 90–100; BMI 25.1; BMI 24.5
--- OUTSIDE RECORDS SUMMARY | 2025-01-30 08:35 | XMS_ITS | Encounter Summary ---
Author Organization [facility] Address [address] [place] [address] Care Team Providers Care Escrow Clerk Name Role Phone Unavailable Primary Care Provider Unavailabl e Encounter Details Date Type Department Care Team (Latest Contact Info) Description 07/16/2003 Outpatient Historical [facility] [address] [facility] [address] [place] [address] Travon Nolasco MD [address] [place] [address] CERVICALGIA (Primary Dx) Social History Tobacco Use Types Packs/Day Years Used Date Smoking Tobacco: Never Assessed Sex and Gender Information Value Date Recorded Sex Assigned at Not on file Legal Sex Male 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
--- OUTSIDE RECORDS SUMMARY | 2025-01-30 08:35 | XMS_ITS | Clinical Summary ---
Author Organization [facility] Address [address] 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
--- OUTSIDE RECORDS SUMMARY | 2025-01-30 08:35 | XMS_ITS | Encounter Summary ---
Author Organization [facility] Address [address] [place] [address] Care Team Providers Care Veneer Taper Name Role Phone Unavailable Primary Care Provider Unavailabl e Encounter Details Date Type Department Care Team (Latest Contact Info) Description 06/24/2003 Inpatient Historical [facility] Emergency Department [address] 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
--- OUTSIDE RECORDS SUMMARY | 2025-01-30 08:35 | XMS_ITS | Clinical Summary ---
Author Organization [facility] Address [address] [address] [place] [address] Phone Care Team Providers Care Lettuce Trimmer Name Role Phone Unavailable Primary Care Provider [...] on file Legal Sex Male 10:07 AM BUN ICER Gender Identity Not on file Sexual Orientation Not on file Last Filed Vital Signs Vital Sign Reading Time Taken Comments Blood Pressure 140/90 05/29/2021 8:00 PM BUN ICER Pulse 74 05/29/2021 8:00 PM BUN ICER Temperature 36.2 C (97.2 F) 05/29/2021 7:48 PM BUN ICER Respiratory Rate 19 05/29/2021 8:00 PM BUN ICER Oxygen Saturation 97% 05/29/2021 8:00 PM BUN ICER Inhaled Oxygen Concentration - - Weight 92.5 kg (204 lb) 05/29/2021 7:48 PM BUN ICER Height 182.9 cm (6') 05/29/2021 7:48 PM BUN ICER Body Mass Index 27.67 05/29/2021 7:48 PM BUN ICER Plan of Treatment Health Maintenance Due Date [...] years 2024 INFLUENZA VACCINE (#1) 2025 Insurance [facility] [id number] POS II
--- OUTSIDE RECORDS SUMMARY | 2025-01-30 08:35 | XMS_ITS | Encounter Summary ---
Author Organization [facility] Address [address] [place] [address] Care Team Providers Care Pc Network Technician Name Role Phone Unavailable Primary Care Provider Unavailabl e Encounter Details Date Type Department Care Team (Latest Contact Info) Description 07/16/2003 Outpatient Historical [facility] [address] 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
--- NOTE | 2025-01-30 08:39 | ECG_ITS ---
[facility] Test Date: 2025-01-30 Pat Name: Contreras Aponte Department: Room: Gender: Male Entertainer & Comic: : 1980 Requested By: Altagracia Scales Order Number: [id number] Cedric MD: Cortes Stewart M.D. Measurements Intervals [place] Rate: 69 P: 64 WA: 140 QRS: -26 QRSD: 105 T: 27 QT: 382 QTc: 411 Interpretive Statements SINUS RHYTHM POSSIBLE RIGHT VENTRICULAR CONDUCTION DELAY [RSR (QR) IN V1/V2] ST DEPRESSION IN HTE ANTERIOR LEADS, CONSISTENT WITH ISCHEMIA ST ELEVATION IN THE INFERIOR LEADS, CONSISTENT WITH INJURY ACUTE ND Compared to ECG 01/27/2025 04:58:50 NO SIGNIFICANT CHANGE Electronically Signed On 01-31-2025 22:27:33 CDT by Cortes Stewart M.D. [id number] [id number]
--- NOTE | 2025-01-30 08:40 | PC.NURSE ---
adult zoll pads placed on pt, x2 18G IVs obtained, pt in gown only.
--- NOTE | 2025-01-30 08:43 | W.ED.CHESTPA ---
HPI - Chest Pain General: Stated Complaint: chest pain Time Seen by Provider: 01/30/25 08:37 Source: patient Mode of arrival: ambulatory Limitations: no limitations History of Present Illness: 44-year-old male with history of STEMI a week ago. He states this morning he started having vomiting along with acute chest pain that began 30 minutes ago he states pain sharp in nature rates it an 8 out of 10. He has some slight dyspnea he denies any fever denies any worse improving factors Associated symptoms: Reports nausea and vomiting; Deny abdominal pain, dyspnea or fever(s) Related Data Previous Rx's ?Medication ?Instructions ?Recorded aspirin 81 mg tablet,delayed 81 mg PO DAILY #30 tabs 01/28/25 release atorvastatin 40 mg tablet 80 mg (2 x 40 mg) PO BEDTIME #30 01/28/25 tabs clopidogrel 75 mg tablet 75 mg PO DAILY #30 tabs 01/28/25 isosorbide mononitrate 30 mg 15 mg (1/2 x 30 mg) PO BID #30 tabs 01/28/25 tablet,extended release 24 hr levofloxacin 750 mg tablet 750 mg PO DAILY 10 days #12 tabs 01/28/25 metoprolol succinate 25 mg 25 mg PO DAILY #30 tabs 01/28/25 tablet,extended release 24 hr omeprazole 20 mg tablet,delayed 20 mg PO DAILY 4 weeks #30 tabs 01/28/25 release sacubitril 24 mg-valsartan 26 mg 1 tab PO BID #60 tabs 01/28/25 tablet (Entresto) Allergies Allergy/AdvReac Type Severity Reaction Status Date / Time strawberry Allergy ALGY-Anaphy Verified 01/26/25 18:04 laxis Review of Systems Const: Denies: fever(s), chills, body aches or change in appetite Eyes: Denies: blurry vision or eye discomfort ENMT: Denies: throat pain or dental pain Card: Reports: chest pain Resp: Denies: dyspnea GI: Reports: nausea and vomiting; Denies: abdominal pain or diarrhea : Denies: dysuria Musc: Denies: neck pain or back pain Skin/Breast: Denies: rash Neuro: Denies: headache(s) PFSH ED PFSH: Medical History Constipation Memory loss Urolithiasis Multi stone former. Spontaneously passed at age 19. Bilateral renal calculi left ureteral calculi diagnosed November 2021. Calculus of distal left ureter Surgical History History of colonoscopy 11/2021 History of esophagogastroduodenoscopy (EGD) 11/2021 History of placement of ear tubes x8 History of appendectomy 2011 History of umbilical hernia repair 2011 Family History Mother Difficulty breathing Other Anesthesia complication Diabetes Denies family history of CAD (coronary artery disease) Dementia Chronic kidney disease (CKD) Bleeding disorder Cancer Stroke Social History Smoking and tobacco/nicotine status: current every day tobacco/nicotine user Alcohol intake: never Substance/Drug Use: never Lives independently: Yes Household members: spouse Marital status: Current occupational status: employed Physical Exam Const: COMMON NORMALS: patient oriented x3 HENMT: COMMON NORMALS: normocephalic and atraumatic HEAD & SCALP: normocephalic and atraumatic Eye: COMMON NORMALS: Equal, round and reactive pupils present and EOMs intact bilaterally PUPIL: Yes Equal, round and reactive pupils present Neck/C-Spine: COMMON NORMALS: full ROM and supple Chest: COMMONS NORMALS: normal inspection of the chest and normal palpation of entire chest wall Resp: COMMON NORMALS: normal respiratory effort, No retractions, No use of accessory muscles and clear to auscultation bilaterally AUSCULTATION: clear to auscultation bilaterally Cardio: COMMON NORMALS: regular rate, regular rhythm and No murmurs present (Cardio) RATE: regular rate RHYTHM: regular rhythm GI: COMMON NORMALS: Normal to inspection, nondistended, normoactive bowel sounds present, Soft to palpation, non-tender and no masses PALPATION: Yes Soft to palpation Extremity: COMMON NORMALS: normal to inspection and full ROM Neuro: COMMON NORMALS: patient oriented x3, moves all extremities and no focal motor deficits Psych: COMMON NORMALS: mental status grossly normal, Normal thought process present and cooperative THOUGHT PROCESS: Normal thought process present Skin: COMMON NORMALS: no rashes or lesions noted and no wounds GENERAL SKIN EXAM: no rashes or lesions noted MDM - Chest Pain Medical Decision Making Patient presents here with active chest pain EKG is concerning for STEMI I did speak to dining services director who came and saw patient is taking him to the Manager Respiratory Care at this time. Medical Records I reviewed the patient's medical records. Lab Data I reviewed the patient's lab results. All radiology interpretation(s) finalized by discharge Discharge Plan Discharge Patient Disposition: Admitted As Inpatient Clinical Impression: STEMI (ST elevation myocardial infarction) Condition: Stable Coding Level of Care Code ED Business Intern for Lucita Mora
[2025-01-30] MEDS: ondansetron 2 mg/ML SDV 2 mL 4 MG IVP ×2 (08:44→10:07)
[2025-01-30 08:50] LABS: Hematocrit 45.6 % (37-53); Hemoglobin 15.80 g/dL (11.27-16.99); Mean Corpuscular HGB Conc 34.6 g/dL (30-55); Mean Corpuscular Hemoglobin 31.0 pg (27-33); Mean Corpuscular Volume 89.6 fl (82-101); Nucleated Red Blood Cells % 0 %; Platelet Count 277 10^3/cmm (157-399); Red Blood Count 5.09 10^6/uL (3.85-5.65); White Blood Count 11.26 10^3/uL (3.29-11.43)
[2025-01-30] MEDS: heparin 5,000 unit/mL INJ 1 mL 4000 UNIT IVP (08:58)
--- NOTE | 2025-01-30 09:00 | PC.NURSE ---
unable to pull ASA from Pyxis, aquatic life laborer team notified on arrival.
[2025-01-30 09:11] LABS: Alanine Aminotransferase 65 U/L (0-41); Albumin Level 3.8 g/dL (3.5-5.2); Alkaline Phosphatase 121 U/L (40-130); Anion Gap 20.1 (5-19); Blood Urea Nitrogen 12 mg/dL (6-20); Calcium 8.9 mg/dL (8.5-10.5); Carbon Dioxide 19 mmol/L (22-29); Chloride 104 mmol/L (98-107); Creatinine Clr Calc Pharmacy 128.3800; Globulin 2.9 g/dL (1.3-4.6); Glucose 155 mg/dL (65-115); Osmolality Calculated 291 mOsm/kg (285-295); Potassium 4.1 mmol/L (3.5-5.1); Sodium 139 mmol/L (136-145); Total Protein 6.7 g/dL (6.6-8.7)
[2025-01-30 09:12] LABS: Aspartate Amino Transferase 61 U/L (0-40); Troponin(5th) Baseline 1078 ng/L (0-15)
--- NOTE | 2025-01-30 09:36 | PM.CONSULT ---
Providers/Reason For Consult Consulting Physician/Specialty*: Sam Vargas MD/interventional cardiology Reason for Consult*: Chest pain/abnormal EKG Requesting Physician: Dr. Scales Attending Physician: Sam Vargas MD Primary Care Provider: Contreras Kramer MD History of Present Illness History of Present Illness Contreras Aponte is a 44 year old male recently discharged few days ago for ST elevation SD post PCI to [facility] woke up this morning with abdominal and chest pain, it is difficult and hard to tell as patient is writhing in pain whether he has abdominal pain radiating to chest or in the chest. Twelve-lead EKG is suggestive of old inferior wall myocardial infarction with minimum ST elevation without reciprocal changes most likely secondary to previous SD. Since patient continues to have chest pain not relieved with nitro and because of abnormal EKG he was taken to the Repairer Finished Metal and noted to have patent RCA stent and no new lesion. He was transferred to the floor to rule out other etiology for the abdominal pain and to be treated for gastritis Review of Systems Const: Denies: fever(s), chills, body aches or change in appetite Eyes: Denies: blurry vision or eye discomfort ENMT: Denies: throat pain or dental pain Card: Reports: chest pain Resp: Denies: dyspnea GI: Reports: nausea and vomiting; Denies: abdominal pain or diarrhea : Denies: dysuria Musc: Denies: neck pain or back pain Skin/Breast: Denies: rash Neuro: Denies: headache(s) Medications/Allergies Home Medications ?Medication ?Instructions ?Recorded ?Confirmed ?Last Taken ?Type aspirin 81 mg tablet,delayed 81 mg PO DAILY #30 tabs 01/28/25 01/30/25 01/30/25 05:00 Rx release atorvastatin 40 mg tablet 80 mg (2 x 40 mg) PO BEDTIME #30 01/28/25 01/30/25 01/30/25 05:00 Rx tabs clopidogrel 75 mg tablet 75 mg PO DAILY #30 tabs 01/28/25 01/30/25 01/30/25 05:00 Rx isosorbide mononitrate 30 mg 15 mg (1/2 x 30 mg) PO BID #30 tabs 01/28/25 01/30/25 01/30/25 05:00 Rx tablet,extended release 24 hr levofloxacin 750 mg tablet 750 mg PO DAILY 10 days #12 tabs 01/28/25 01/30/25 01/30/25 05:00 Rx metoprolol succinate 25 mg 25 mg PO DAILY #30 tabs 01/28/25 01/30/25 01/30/25 05:00 Rx tablet,extended release 24 hr omeprazole 20 mg tablet,delayed 20 mg PO DAILY 4 weeks #30 tabs 01/28/25 01/30/25 01/30/25 05:00 Rx release sacubitril 24 mg-valsartan 26 mg 1 tab PO BID #60 tabs 01/28/25 01/30/25 01/30/25 05:00 Rx tablet (Entresto) Allergies Allergy/AdvReac Type Severity Reaction Status Date / Time strawberry Allergy ALGY-Anaphy Verified 01/26/25 18:04 laxis PFSH Acute PFSH: Medical History (Updated 01/30/25 @ 17:36 by Sam Vargas MD) Constipation Memory loss Urolithiasis Multi stone former. Spontaneously passed at age 19. Bilateral renal calculi left ureteral calculi diagnosed November 2021. Calculus of distal left ureter Surgical History History of colonoscopy 11/2021 History of esophagogastroduodenoscopy (EGD) 11/2021 History of placement of ear tubes x8 History of appendectomy 2011 History of umbilical hernia repair 2011 Family History Mother Difficulty breathing Other Anesthesia complication Diabetes Denies family history of CAD (coronary artery disease) Dementia Chronic kidney disease (CKD) Bleeding disorder Cancer Stroke Social History Smoking and tobacco/nicotine status: current every day tobacco/nicotine user Alcohol intake: never Substance/Drug Use: never Lives independently: Yes Household members: spouse Marital status: Current occupational status: employed Vitals/I&O/Wt Last Vital Signs Temp 98.0 F 01/30/25 08:33 Pulse 78 01/30/25 09:06 Resp 33 H 01/30/25 09:06 BP 160/96 01/30/25 09:06 Pulse Ox 99 01/30/25 09:06 O2 Del Method Room Air 01/30/25 08:33 Weight last 48 hrs Weight 180 lb Physical Exam Const: OTHER: GENERAL: Patient is alert, awake and oriented x3. HEART: Regular S1 and S2. No murmur, rub or gallop. LUNGS: Clear to auscultate bilaterally. CENTRAL NERVOUS SYSTEM: Grossly nonfocal. EXTREMITIES: Lower extremities with out edema bilaterally. Data 01/30/25 08:43 01/30/25 08:43 A&P Assessment and plan 1. Ischemic cardiomyopathy: 2. Abdominal pain: 3. Chest pain: Plan: Patient underwent left heart catheterization noted to have patent previously placed RCA stents, no new lesion was noted. Most likely chest pain is secondary to possible gastritis or esophagitis Abdominal pain will refer to medicine colleague Advise Protonix Continue dual antiplatelet therapy in the form of aspirin and Plavix. Hold statin for couple of days for possible muscle spasms or myositis etiology for the chest pain Will continue to monitor him along with medicine at this point his chest pain/abdominal pain is noncardiac PDMP PDMP Reviewed: Not Reviewed Consult Attestations Medical Necessity Statement: Patient required admission post left heart cath and for abdominal pain and as per medicine Coding Level of Care Code Acute Code for g Fwd Diagnoses Ischemic cardiomyopathy I25.5 Abdominal pain R10.9 Chest pain R07.9
--- NOTE | 2025-01-30 09:58 | PC.NURSE ---
received from cardiac labor and delivery nurse via bed at 0935.report received.pt is sleepy but easily awakened.sr on monitor.sheath had been removed in labor and delivery nurse.site closed with angioseal device.drsg is dry and intact.no hematoma noted.right leg is warm to touch and with brisk capillary refill.palpable dp pulse noted.pt instructed in activity restrictions s/p femoral artery procedure...and instructed to notify staff for any numbness,sob,bleeding..or for any concern at all.pt verb understanding of instructions
--- NOTE | 2025-01-30 10:29 | PC.NURSE ---
pt c/o nausea and llq abd pain, rating 8/10.dr ho to refer hospitalist
--- NOTE | 2025-01-30 10:40 | ECG_ITS ---
[employer] Test Date: 2025-01-30 Pat Name: Contreras Aponte Department: Room: 107 Gender: Male Production Support Consultant: : 1980 Requested By: Altagracia Scales Order Number: [id number] Cedric MD: Cortes Stewart M.D. Measurements Intervals [place] Rate: 69 P: 56 MN: 150 QRS: -30 QRSD: 101 T: 40 QT: 396 QTc: 424 Interpretive Statements SINUS RHYTHM POSSIBLE RIGHT VENTRICULAR CONDUCTION DELAY [RSR (QR) IN V1/V2] ST ELEVATION IN THE INFERIOR LEADS CONSISTENT WITH INJURY OF INDETERMINATE AGE ACUTE RI ST DEPRESSION IN THE ANTEROLATERAL LEADS, CONSISTENT WTIH ISCHEMIA Compared to ECG 01/30/2025 08:35:51 No significant changes Electronically Signed On 02-01-2025 14:01:44 CDT by Cortes Stewart M.D. [id number] [id number]
[2025-01-30] MEDS: morphine 4 mg/mL SDV 1 mL IVP (10:47)
--- NOTE | 2025-01-30 10:57 | PC.NURSE ---
dr burnett is now the hospitalist on case.he was notified regarding 03/12 llq pain
[2025-01-30 11:10] LABS: Troponin 5 2HR 1101 ng/L (0-15); Troponin 5 2HR Delta 23 ABS# (0-10)
--- NOTE | 2025-01-30 12:50 | PC.CHAP ---
Pastoral Care Encounter/Spiritual Assessment Type of Contact [x] Declined customer account manager visit [] Patient/Family/Request visit [] Outpatient visit [] Follow-up visit [] Physician referral [] Code/Alert [x] Routine visit [] Staff referral [] Actively dying [] Patient sleeping [] Family support [] [] Out of room [] Palliative care [] [] Receiving care in room [] Pre-surgical visit [] Trauma [] Long length of stay [] ICU visit [] Other: Relational/Emotional Strength [] Patient feels connected with others/family/visitors/staff [] Distress [] Loneliness/isolation [] Abandonment Spirituality of Patient [] Person of Mikki [] Attends Mandaeism of their Mikki [] Believes in Prayer [] Reads Bible or Sikhism materials [] There are Spiritual issues to be addressed Service Member Interventions [] Prayer [] Active listening [] Non-anxious presence [] Spiritual/emotional support [] Crisis/trauma care [] Spiritual counseling [] Bereavement support [] Provided bereavement packet [] Provided Bible/devotional materials [] Provided toy/stuffed animal, coloring book to patient or family member [] Provided Communion [] Anointing/[place] [] Salvation [] Completed spiritual assessment [] Other: Impact on Illness or Injury [] Angry [] Fearful [] Anxious [] Often cries [] Exhaustion [] Unable to work [] Unable to attend sabianist [] Unable to walk/stand [] Unable to read [] Unable to drive [] Unable to eat/drink [] Unable to sleep [] Unable to be with family [] Patient intubated [] Other: Summary Time spent with patient
--- NOTE | 2025-01-30 13:41 | P.PN_ITS ---
Subjective 2 Subjective: the patient was seen in the morning, post cath and there no obstruction The patient was having abdominal pain that he mention 10 out of 10 and was having mild nausea and vomiting with it Urgent CT scan abdomen pelvis was done and showed 3 mm obstructing calculus with mild hydronephrosis Vitals/I&O/Wt Last Vital Signs Temp 98.0 F 01/30/25 09:36 Pulse 69 01/30/25 09:36 Resp 20 H 01/30/25 10:47 BP 153/96 01/30/25 09:36 Pulse Ox 99 01/30/25 10:47 O2 Del Method Room Air 01/30/25 09:45 01/29/25 01/30/25 01/30/25 22:59 06:59 14:59 Output Total 200 / 200 Balance -200 / -200 Weight last 48 hrs Weight 79.832 kg Weight 81.647 kg Physical Exam 2 Narrative: General: Alert oriented x3, patient seen lying in distress due to abdominal pain HEENT: Normocephalic, atraumatic, EOMI, breathing at room air Cardio: Regular rate rhythm, normal S1-S2, no murmurs rubs gallops, JVD normal Respiratory: Good bilateral air entry, no wheezes no rhonchi appreciated GI: Abdomen soft, positive tenderness around the paraumbilical area, nondistended, normoactive bowel sounds present all 4 quadrants, Neuro: Cranial nerves II to XII intact, strength 5/5, sensation 5/5, no gross neurological deficit Behavior: Appropriate and cooperative however in distress due to severe abd pain Extremities: Pulses 2+, no edema, no cyanosis Skin: Visible skin intact, no rashes Data 01/30/25 08:43 01/30/25 08:43 A&P Assessment and plan 1. Urolithiasis: 2. Abdominal pain: 3. Renal colic on left side: 4. Ischemic cardiomyopathy: Plan: - atypical chest pain: The patient underwent cath and does not have any obstruction Patient to continue on medications for heart failure with mildly reduced ejection fraction Monitor vitals Telemetry Monitoring of electrolytes and correction accordingly Abdominal pain with nausea and vomiting: History of left renal stone/renal colic Patient reported severe abdominal pain which was a lot better umbilicus, CT abdomen pelvis without contrast done and showed left ureteric stone with mild hydronephrosis Ceftriaxone 1 g daily UA to follow The patient is afebrile no signs of fever or infection therefore less likely to be pyelonephritis Previous CT scans reviewed and the patient stone is actually less than the previous size. Urologist from [facility] Dr. Ferraro consulted and advised this stone is likely to pass spontaneously based on its size and as per guidelines. You can consider alpha blockers tamsulosin once daily if there is no contraindication and started accordingly DVT: Enoxaparin Diet cardiac PDMP PDMP Reviewed: Not Reviewed Attestations 2 Medical Necessity Statement*: Contreras Aponte's hospital stay will be less than 2 midnights for management of ureteric stone<3mm and atypical chest pain, which is cleared for any pathology post cath Time Spent in Patient Care: 16 - 35 minutes (>than 50% of time sp ent in counselling and/or direct pt care on unit) . Other Attestations: Patient condition has been discussed at length with the patient/family, I have independently reviewed the chart labs imaging and diagnostics and EKG. the goals of care and code status with the patient/family/NOK/legal sales representative gas service, and documented accordingly. The patient/family has been informed about the current condition and further plan of care. Agreed with the plan of care and understood without any language barrier. This documentation was created by [email or web address] systems software manager software. Every effort was made to ensure accuracy of systems software manager. Any obvious errors or omissions should be clarified with the author of the document. Coding Level of Care Code 63981 Diagnoses Urolithiasis N20.9 Abdominal pain R10.9 Renal colic on left side N23 Ischemic cardiomyopathy I25.5
[2025-01-30] MEDS: HYDROmorphone tab 2 MG TABLET PO (13:45)
--- NOTE | 2025-01-30 14:16 | PC.NURSE ---
ct scan of pelvis and abd was done.pt cont to c/o severe llq pain...nausea/vomiting.urine is tea colored.dr burnett notified that ct results are in chart.he ordered toradol iv,dilaudid po.these were given as ordered and pain has relieved considerably.
--- NOTE | 2025-01-30 14:30 | CTR_ITS ---
PROCEDURE INFORMATION: Exam: CT Abdomen And Pelvis Without Contrast Exam date and time: 01/30/2025 12:47 PM Age: 44 years old Clinical indication: Abdominal pain; Localized; Left lower quadrant (llq); Additional info: Abd pain, 1430-pt just got to room from cathlab alg TECHNIQUE: Imaging protocol: Computed tomography of the abdomen and pelvis without contrast. Radiation optimization: All CT scans at this facility use at least one of these dose optimization techniques: automated exposure control; mA and/or kV adjustment per patient size (includes targeted exams where dose is matched to clinical indication); or iterative reconstruction. COMPARISON: CT kidney stone [id number] 11/21/2021 12:05 PM RADIATION DOSE METRICS: Total DLP (mGy-cm): 499.66 FINDINGS: Liver: Normal. No mass. Gallbladder and biliary ducts: Normal. No calcified stones. No ductal dilation. Pancreas: Normal. No ductal dilation. Spleen: Normal. No splenomegaly. Adrenal glands: Normal. No mass. Kidneys and ureters: 3-4 mm obstructing calculus in the proximal left ureter causing moderate hydroureteronephrosis on the left. There is hyperdensity throughout the left kidney related to retained contrast from obstructive uropathy. Left perinephric stranding. Stomach and bowel: Colonic diverticulosis. No bowel obstruction. Appendix: The appendix is surgically absent. Intraperitoneal space: Unremarkable. No free air. No significant fluid collection. Vasculature: Mild atherosclerosis. Lymph nodes: Unremarkable. No enlarged lymph nodes. Urinary bladder: Unremarkable as visualized. Reproductive: Unremarkable as visualized. Bones/joints: Unremarkable. No acute fracture. Soft tissues: Unremarkable. CT/CT abdomen pelvis wo con [id number] IMPRESSION: 3-4 mm obstructing calculus in the left proximal ureter causing moderate hydroureteronephrosis. Delayed nephrogram of the left. Left perinephric stranding. Correlate with urinalysis to exclude superimposed pyelonephritis. COMMENTS: Consistent with the [place] [employer]'s Incidental Findings Committee white paper (J Am Adrian Radiol 2018): Any incidental renal lesion less than 1 cm or classified as too small to characterize, or any incidental cystic renal lesion characterized as simple-appearing, is likely benign. No follow-up imaging is recommended for these lesions per consensus recommendations based on imaging criteria.
[2025-01-30] MEDS: cefTRIAXone 1,000 mg SDV 1000 MG IVP (15:21)
--- NOTE | 2025-01-30 17:56 | PM.DCS ---
Discharge Providers Date of Admission: 01/30/25 09:35 Date of Discharge: January 30, 2025 Attending Provider at Admission: Sam Vargas MD Attending Provider at Discharge: Yony Anderson MD Primary Care Provider: Contreras Kramer MD Diagnoses at Discharge Discharge Diagnosis 1. Ischemic cardiomyopathy: 2. Abdominal pain: 3. Chest pain: Reason for Visit Reason for Visit: chest pain Brief History: as per the recent notes and patient: Contreras Aponte is a 44 year old male recently discharged few days ago for ST elevation [place] post PCI to RCA woke up this morning with abdominal and chest pain, it is difficult and hard to tell as patient is writhing in pain whether he has abdominal pain radiating to chest or in the chest. Twelve-lead EKG is suggestive of old inferior wall myocardial infarction with minimum ST elevation without reciprocal changes most likely secondary to previous [place]. Since patient continues to have chest pain not relieved with nitro and because of abnormal EKG he was taken to the [facility] and noted to have patent RCA stent and no new lesion. He was transferred to the floor to rule out other etiology for the abdominal pain and to be treated for gastritis Hospital Course Hospital Course Patient underwent a cardiac cath and it was not remarkable. The patient was having abdominal distress therefore CT abdomen pelvis without contrast scan was done and it showed left ureteric stone of 3 mm with mild hydronephrosis. The patient was given adequate analgesia and hydration was started. His case was further discussed with the urology at [facility] Dr. Ferraro due to stone and need for intervention. He advised to continue with medical management since the stone of 3 mm is likely to spontaneously pass by itself. The retrospective CT scans of his abdomen were seen and showed the same ureteric stone however in the recent 1 the stone size was decreased. The patient was seen by the cardiology and he statins were held since it can lead to myositis and therefore to follow-up with cardiology in 2 weeks for further resumption and management accordingly. Patient is discharged on Protonix for management of possible gastritis as underlying cause of abdominal pain. Further follow-ups with cardiology and primary care physician were given. Patient condition has been discussed at length with the patient/family, I have independently reviewed the chart labs imaging and diagnostics and EKG. the goals of care and code status with the patient/family/NOK/legal contracts representative, and documented accordingly. The patient/family has been informed about the current condition and further plan of care. Agreed with the plan of care and understood without any language barrier. This documentation was created by [employer] cooking appliance repair technician software. Every effort was made to ensure accuracy of cooking appliance repair technician. Any obvious errors or omissions should be clarified with the author of the document. Physical Exam Narrative: General: Alert oriented x3, patient seen lying comfortably without any abdominal pain at the time of discharge HEENT: Normocephalic, atraumatic, EOMI, breathing at room air Cardio: Regular rate rhythm, normal S1-S2, no murmurs rubs gallops, JVD normal Respiratory: Good bilateral air entry, no wheezes no rhonchi appreciated GI: Abdomen soft, nontender and not distended, normoactive bowel sounds present all 4 quadrants, Neuro: Cranial nerves II to XII intact, strength 5/5, sensation 5/5, no gross neurological deficit Behavior: Appropriate and cooperative however in distress due to severe abd pain Extremities: Pulses 2+, no edema, no cyanosis Skin: Visible skin intact, no rashes Discharge Data Studies Completed and Pending Completed Studies During Hospitalization Category Date Time Status CT abdomen pelvis wo con [id number] Routine Cat Scan 01/30/25 14:30 Completed Pending at discharge Category Date Time Status RAPIER INSERTION LOOM FIXER request for service Stat Exams 01/30/25 08:43 Ordered Basic Metabolic Panel AM LABS Lab 01/31/25 04:00 Ordered Complete Blood Count w/Auto AM LABS Lab 01/31/25 04:00 Ordered UA w/Reflex to Microscope [Urinalysis] Routine Lab 01/30/25 17:56 Ordered Radiology Impressions Abdomen/Pelvis CT 01/30/25 14:30 IMPRESSION: 3-4 mm obstructing calculus in the left proximal ureter causing moderate hydroureteronephrosis. Delayed nephrogram of the left. Left perinephric stranding. Correlate with urinalysis to exclude superimposed pyelonephritis. COMMENTS: Consistent with the [employer]'s Incidental Findings Committee white paper (J Am Adrian Radiol 2018): Any incidental renal lesion less than 1 cm or classified as too small to characterize, or any incidental cystic renal lesion characterized as simple-appearing, is likely benign. No follow-up imaging is recommended for these lesions per consensus recommendations based on imaging criteria. Laboratory Results WBC 11.26 10^3/uL (3.29-11.43) 01/30/25 08:43 RBC 5.09 10^6/uL (3.85-5.65) 01/30/25 08:43 Hgb 15.80 g/dL (11.27-16.99) 01/30/25 08:43 Hct 45.6 % (37-53) 01/30/25 08:43 MCV 89.6 fl (82-101) 01/30/25 08:43 MCH 31.0 pg (27-33) 01/30/25 08:43 MCHC 34.6 g/dL (30-55) 01/30/25 08:43 RDW 13.1 % (12.1-15.1) 01/30/25 08:43 Plt Count 277 10^3/cmm (157-399) 01/30/25 08:43 MPV 10.5 fL (7.4-10.4) H 01/30/25 08:43 Neut % (Auto) 74.6 % 01/30/25 08:43 Lymph % (Auto) 12.8 % 01/30/25 08:43 Sawyer % (Auto) 10.0 % 01/30/25 08:43 Eos % (Auto) 1.9 % 01/30/25 08:43 Baso % (Auto) 0.4 % 01/30/25 08:43 Neut # (Auto) 8.41 10^3/uL (1.8-7.7) H 01/30/25 08:43 Lymph # (Auto) 1.4 10^3/uL (0.8-4.8) 01/30/25 08:43 Sawyer # (Auto) 1.1 10^3/uL (0.2-0.9) H 01/30/25 08:43 Eos # (Auto) 0.2 10^3/uL (0.0-0.8) 01/30/25 08:43 Baso # (Auto) 0.0 10^3/uL (0.0-0.1) 01/30/25 08:43 Nucleated RBC % (auto) 0 % 01/30/25 08:43 Nucleated RBCs # 0.0 /100WBC 01/30/25 08:43 Sodium 139 mmol/L (136-145) 01/30/25 08:43 Potassium 4.1 mmol/L (3.5-5.1) 01/30/25 08:43 Chloride 104 mmol/L (98-107) 01/30/25 08:43 Carbon Dioxide 19 mmol/L (22-29) L 01/30/25 08:43 Anion Gap 20.1 (5-19) H 01/30/25 08:43 BUN 12 mg/dL (6-20) 01/30/25 08:43 Creatinine 0.8 mg/dL (0.7-1.2) 01/30/25 08:43 GFR Calculation 104.5 mL/min (90-130) 01/30/25 08:43 Glucose 155 mg/dL (65-115) H 01/30/25 08:43 Calculated Osmolality 291 mOsm/kg (285-295) 01/30/25 08:43 Calcium 8.9 mg/dL (8.5-10.5) 01/30/25 08:43 Total Bilirubin 0.5 mg/dL (0.15-1.2) 01/30/25 08:43 AST 61 U/L (0-40) H 01/30/25 08:43 ALT 65 U/L (0-41) H 01/30/25 08:43 Alkaline Phosphatase 121 U/L (40-130) 01/30/25 08:43 Troponin T Baseline 1078 ng/L (0-15) H* 01/30/25 08:43 Troponin T 120 Minute 1101 ng/L (0-15) H 01/30/25 10:39 Delta Troponin T 23 ABS# (0-10) H* 01/30/25 10:39 Total Protein 6.7 g/dL (6.6-8.7) 01/30/25 08:43 Albumin 3.8 g/dL (3.5-5.2) 01/30/25 08:43 Globulin 2.9 g/dL (1.3-4.6) 01/30/25 08:43 Vitals Last Vital Signs Temp 98.0 F 01/30/25 09:36 Pulse 81 01/30/25 15:45 Resp 17 01/30/25 15:45 BP 139/84 01/30/25 15:45 Pulse Ox 93 01/30/25 15:45 O2 Del Method Room Air 01/30/25 09:45 Discharge Plan Discharge Patient Disposition: Home Condition: Stable Prescriptions: New isosorbide mononitrate 30 mg Tablet Extended Release 24 Hr 30 mg PO DAILY 90 Days Qty: 90 0RF tamsulosin 0.4 mg Capsule 0.4 mg PO DAILY 60 Days Qty: 60 0RF Continued aspirin 81 mg Tablet,Delayed Release (Dr/Ec) 81 mg PO DAILY Qty: 30 0RF clopidogrel 75 mg Tablet 75 mg PO DAILY Qty: 30 0RF metoprolol succinate 25 mg Tablet Extended Release 24 Hr 25 mg PO DAILY Qty: 30 0RF sacubitril-valsartan [Entresto] 24-26 mg Tablet 1 tab PO BID Qty: 60 0RF omeprazole 20 mg tablet,delayed release (DR/EC) 20 mg PO DAILY 28 Days Qty: 30 0RF levofloxacin 750 mg tablet 750 mg PO DAILY 10 Days Qty: 12 0RF Discontinued atorvastatin 40 mg Tablet 80 mg PO BEDTIME Qty: 30 0RF isosorbide mononitrate 30 mg Tablet Extended Release 24 Hr 15 mg PO BID Qty: 30 0RF [employer] [place] for DC: Cardiology Discharge Order = DC NOW: Discharge Order (Routine); Ordered 01/30/25 Ordered By: Sam Vargas Referrals: Sam Vargas MD [Physician, Cardiology] - 2 weeks Referral Note: FU since statins were held and to follow with the atypical chest pain Yohana Romero FNP [Nurse Practitioner, Cardiology] - 2 weeks Referral Note: We have notified your physician's clinic of the need for a follow-up appointment to be scheduled. If you have not heard from them within the next 2 business days, please call them directly. Contreras Kramer MD [Primary Care Provider, Family Practice] - 1 week Referral Note: Please keep scheduled appt with Dr. Kramer Discharge Diet: Advance as tolerated Discharge Activity: Resume usual activity Patient Instructions: Isosorbide Mononitrate (By mouth), Tamsulosin (By mouth), Heart Failure (DC), Kidney Stones (DC), CHF Stoplight, Opioid Safety, Post Angiogram Home Care Instructions, Patient Portal & [facility] Instructions Discharge Attestations Time Spent in Discharge Care*: greater than 30 min Specific Discharge Activities: educating patient, educating and/or supporting family/caregiver, discussing with pcp/other providers, discussing with family service caseworker/social workers/dc planners, documenting/other paperwork and evaluating patient/reviewing data Status at Discharge: Cognitive status at discharge: cognitively intact, Behavioral status at discharge: cooperative, Functional status at discharge: independent ambulation, Overall status at discharge: patient is back to baseline Quality Metrics Clinical Quality Measures [ No reported AMI, CVA or VTE this stay] Coding Level of Care Code Acute Code for Chg Fwd Diagnoses Ischemic cardiomyopathy I25.5 Abdominal pain R10.9 Chest pain R07.9
--- NOTE | 2025-01-30 18:15 | PM.HP ---
Providers/Chief Complaint Admitting Physician: Justin Bhakta Primary Care Provider: Contreras Kramer MD Chief Complaint: chest pain History of Present Illness History as per the previous retrospective note and the patient : cyndi Aponte is a 44 year old male recently discharged few days ago for ST elevation [place] post PCI to [facility] woke up this morning with abdominal and chest pain, it is difficult and hard to tell as patient is writhing in pain whether he has abdominal pain radiating to chest or in the chest. Twelve-lead EKG is suggestive of old inferior wall myocardial infarction with minimum ST elevation without reciprocal changes most likely secondary to previous [place]. Since patient continues to have chest pain not relieved with nitro and because of abnormal EKG he was taken to the [facility] and noted to have patent RCA stent and no new lesion. He was transferred to the floor to rule out other etiology for the abdominal pain and to be treated for gastritis. The patient also reported having nausea and vomiting and episode of diarrhea. The patient did not report any recent drug abuse or any excessive alcohol intake. The patient had quit smoking. And he is compliant with his medications The patient did not report any orthopnea PND and lower leg swellings associated with the chest pain. No signs of dizziness presyncope or syncope reported by the patient. Review of Systems General: Reports: 10 or more systems reviewed and unremarkable except in HPI and below Const: Denies: fever(s), chills, body aches or change in appetite Eyes: Denies: blurry vision or eye discomfort ENMT: Denies: throat pain or dental pain Card: Reports: chest pain Resp: Denies: dyspnea GI: Reports: nausea and vomiting; Denies: abdominal pain or diarrhea : Denies: dysuria Musc: Denies: neck pain or back pain Skin/Breast: Denies: rash Neuro: Denies: headache(s) Medications/Allergies Home Medications ?Medication ?Instructions ?Recorded ?Confirmed ?Last Taken ?Type aspirin 81 mg tablet,delayed 81 mg PO DAILY #30 tabs 01/28/25 01/30/25 01/30/25 05:00 Rx release clopidogrel 75 mg tablet 75 mg PO DAILY #30 tabs 01/28/25 01/30/25 01/30/25 05:00 Rx levofloxacin 750 mg tablet 750 mg PO DAILY 10 days #12 tabs 01/28/25 01/30/25 01/30/25 05:00 Rx metoprolol succinate 25 mg 25 mg PO DAILY #30 tabs 01/28/25 01/30/25 01/30/25 05:00 Rx tablet,extended release 24 hr omeprazole 20 mg tablet,delayed 20 mg PO DAILY 4 weeks #30 tabs 01/28/25 01/30/25 01/30/25 05:00 Rx release sacubitril 24 mg-valsartan 26 mg 1 tab PO BID #60 tabs 01/28/25 01/30/25 01/30/25 05:00 Rx tablet (Entresto) isosorbide mononitrate 30 mg 30 mg PO DAILY 90 days #90 tabs 01/30/25 Unknown Rx tablet,extended release 24 hr tamsulosin 0.4 mg capsule 0.4 mg PO DAILY 60 days #60 caps 01/30/25 Unknown Rx Allergies Allergy/AdvReac Type Severity Reaction Status Date / Time strawberry Allergy ALGY-Anaphy Verified 01/26/25 18:04 laxis PFSH Acute PFSH: Medical History (Updated 01/30/25 @ 17:36 by Sam Vargas MD) Constipation Memory loss Urolithiasis Multi stone former. Spontaneously passed at age 19. Bilateral renal calculi left ureteral calculi diagnosed November 2021. Calculus of distal left ureter Surgical History History of colonoscopy 11/2021 History of esophagogastroduodenoscopy (EGD) 11/2021 History of placement of ear tubes x8 History of appendectomy 2011 History of umbilical hernia repair 2011 Family History Mother Difficulty breathing Other Anesthesia complication Diabetes Denies family history of CAD (coronary artery disease) Dementia Chronic kidney disease (CKD) Bleeding disorder Cancer Stroke Social History Smoking and tobacco/nicotine status: current every day tobacco/nicotine user Alcohol intake: never Substance/Drug Use: never Lives independently: Yes Household members: spouse Marital status: Current occupational status: employed Vitals/I&O/Wt Last Vital Signs Temp 98.0 F 01/30/25 09:36 Pulse 79 01/30/25 17:57 Resp 18 01/30/25 17:57 BP 146/93 01/30/25 17:57 Pulse Ox 93 01/30/25 17:57 O2 Del Method Room Air 01/30/25 09:45 01/30/25 01/30/25 01/30/25 06:59 14:59 22:59 Output Total 200 / 200 400 / 600 Balance -200 / -200 -400 / -600 Weight last 48 hrs Weight 79.832 kg Weight 81.647 kg Physical Exam Narrative: General: Alert oriented x3, patient seen lying in distress due to abdominal pain HEENT: Normocephalic, atraumatic, EOMI, breathing at room air Cardio: Regular rate rhythm, normal S1-S2, no murmurs rubs gallops, JVD normal Respiratory: Good bilateral air entry, no wheezes no rhonchi appreciated GI: Abdomen soft, positive tenderness around the paraumbilical area, nondistended, normoactive bowel sounds present all 4 quadrants, Neuro: Cranial nerves II to XII intact, strength 5/5, sensation 5/5, no gross neurological deficit Behavior: Appropriate and cooperative however in distress due to severe abd pain Extremities: Pulses 2+, no edema, no cyanosis Skin: Visible skin intact, no rashes Data 01/30/25 08:43 01/30/25 08:43 A&P Assessment and plan 1. Ischemic cardiomyopathy: 2. Abdominal pain: 3. Chest pain: Plan: - atypical chest pain: The patient underwent cath and does not have any obstruction Patient to continue on medications for heart failure with mildly reduced ejection fraction Monitor vitals Telemetry Monitoring of electrolytes and correction accordingly Abdominal pain with nausea and vomiting: History of left renal stone/renal colic Patient reported severe abdominal pain which was a lot better umbilicus, CT abdomen pelvis without contrast done and showed left ureteric stone with mild hydronephrosis Ceftriaxone 1 g daily UA to follow The patient is afebrile no signs of fever or infection therefore less likely to be pyelonephritis Previous CT scans reviewed and the patient stone is actually less than the previous size. Urologist from [facility] Dr. Ferraro consulted and advised this stone is likely to pass spontaneously based on its size and as per guidelines. You can consider alpha blockers tamsulosin once daily if there is no contraindication and started accordingly DVT: Enoxaparin Diet cardiac PDMP PDMP Reviewed: Not Reviewed Attestations Medical Necessity Statement*: The patient will stay less than 2 midnights for the management of his atypical chest pain possible gastritis versus enteritis, CAT scan did not reveal anything apart from left ureteric stone that has been there in the previous CAT scan and as per urology discussion with Dr. Ferraro at [facility] for medical management Time Spent in Patient Care: 16 - 35 minutes (>than 50% of time spent in counselling and/or direct pt care on unit). Other Attestations: Patient condition has been discussed at length with the patient/family, I have independently reviewed the chart labs imaging and diagnostics and EKG. the goals of care and code status with the patient/family/NOK/legal media sales representative, and documented accordingly. The patient/family has been informed about the current condition and further plan of care. Agreed with the plan of care and understood without any language barrier. This documentation was created by [employer] solid plasterer software. Every effort was made to ensure accuracy of solid plasterer. Any obvious errors or omissions should be clarified with the author of the document. Coding Level of Care Code 91772 Diagnoses Ischemic cardiomyopathy I25.5 Abdominal pain R10.9 Chest pain R07.9
--- NOTE | 2025-01-30 18:28 | PC.NURSE ---
after pain meds given earlier...pt has had no pain in llq.pt is requesting to go home.discharge orders given and explained.pt verb understanding of instructions.discharged via w/c to exit at this time.pt s.o. to drive pt home.
[2025-01-30 19:22] LABS: Glucose Urine UA Negative (Normal); Nitrate Urine Negative (Negative)
[2025-01-30 19:28] LABS: Add Urine Microscopic? YES
[2025-01-30 19:30] LABS: Specific Gravity, Urine 1.033 (1.005-1.030)
== END 2025-01-30 18:30 | disposition home or self-care (01) ==
LOC: ER 08:45 → CCL 08:58 → CSU 09:36
PROVIDERS: Admitting Provider Internal Medicine Cardiovascular Disease; Emergency Provider Emergency Medicine; PCP Family Medicine; Visit Provider Student in an Organized Health Care Education/Training Program
DX: I25.5 Ischemic cardiomyopathy (principal); Z79.82 Long term (current) use of aspirin; K21.9 Gastro-esophageal reflux disease without esophagitis; Z87.891 Personal history of nicotine dependence; N20.9 Urinary calculus, unspecified; N23 Unspecified renal colic; I25.2 Old myocardial infarction
CPT/HCPCS: 36415; 74176; 80053; 81001; 84484; 85025; 87086; 93005; 96361; 96374; 96375; 96376; 99152; 99285; C1760; C1769; C1887; C1894; G0269; G0378; J0696; J1644; J1885; J2250; J2270; J2405; J3010; J3490; J7030; J7120; J9999; Q9967

== ENCOUNTER → 2025-04-01 10:46 | Outpatient (BNVA) | payer OTHER, SELFPAY | PROVIDERS: PCP Family Medicine; Visit Provider Family Medicine | DX: I25.10 Atherosclerotic heart disease of native coronary artery without angina pectoris (principal) | CPT/HCPCS: 80053; 80061 ==

== ENCOUNTER 2025-04-20 09:38 | Emergency (ER) | payer OTHER, SELFPAY ==
--- NOTE | 2025-04-20 09:42 | W.ED.CHESTPA ---
HPI - Chest Pain General: Chief Complaint: Chest Pain Stated Complaint: CP Time Seen by Provider: 04/20/25 09:42 History of Present Illness: 45-year-old male presents to the emergency room with complaints of chest pain. He was at work got lightheaded and dizzy while he was reaching up as chest pain is reproducible to palpation on the right side of the sternum. Began about an hour and a half ago. Patient has a known history of heart disease he had angiography with stent placement in January of this year he is still taking his clopidogrel. No recent fever sweats or chills. Associated symptoms: Deny abdominal pain, dyspnea or fever(s) Related Data Previous Rx's ?Medication ?Instructions ?Recorded aspirin 81 mg tablet,delayed 81 mg PO DAILY #30 tabs 01/28/25 release alprazolam 0.25 mg tablet 0.25 mg PO BID PRN anxiety #20 tabs 02/04/25 clopidogrel 75 mg tablet 75 mg PO DAILY #90 tabs 02/16/25 metoprolol succinate 25 mg 25 mg PO DAILY #90 tabs 02/16/25 tablet,extended release 24 hr atorvastatin 20 mg tablet (Lipitor) 20 mg PO DAILY #30 tabs 04/12/25 Allergies Allergy/AdvReac Type Severity Reaction Status Date / Time strawberry Allergy ALGY-Anaphy Verified 01/26/25 18:04 laxis Review of Systems Const: Denies: fever(s) or chills Card: Denies: chest pain Resp: Denies: dyspnea GI: Denies: abdominal pain : Denies: dysuria, urinary frequency or urinary urgency Musc: Denies: neck pain or back pain Skin/Breast: Denies: rash PFS ED PFSH: Medical History Coronary artery disease Constipation Memory loss Urolithiasis Multi stone former. Spontaneously passed at age 19. Bilateral renal calculi left ureteral calculi diagnosed November 2021. Calculus of distal left ureter Surgical History History of colonoscopy 11/2021 History of esophagogastroduodenoscopy (EGD) 11/2021 History of placement of ear tubes x8 History of appendectomy 2011 History of umbilical hernia repair 2012 Family History Mother Difficulty breathing Other Anesthesia complication Diabetes Denies family history of CAD (coronary artery disease) Dementia Chronic kidney disease (CKD) Bleeding disorder Cancer Stroke Social History Smoking and tobacco/nicotine status: never used tobacco/nicotine Alcohol intake: never Substance/Drug Use: never Lives independently: Yes Household members: spouse Marital status: Current occupational status: employed Physical Exam Const: COMMON NORMALS: no acute distress GENERAL APPEARANCE: cooperative and comfortable ORIENTATION/CONSCIOUSNESS: Yes awake, Yes oriented to person, Yes oriented to place and Yes oriented to time HENMT: COMMON NORMALS: normocephalic, atraumatic and hearing grossly normal bilaterally HEAD & SCALP: normocephalic and atraumatic Chest: OTHER: Pain reproducible with movements of the upper extremities particular the right arm reproduced with palpation along the right sternal border Resp: COMMON NORMALS: normal respiratory effort, No retractions, No use of accessory muscles and clear to auscultation bilaterally AUSCULTATION: clear to auscultation bilaterally Cardio: COMMON NORMALS: regular rate, regular rhythm and No murmurs present (Cardio) RATE: regular rate RHYTHM: regular rhythm GI: COMMON NORMALS: Soft to palpation and No hepatosplenomegaly present AUSCULTATION: Yes normoactive bowel sounds PALPATION: Yes Soft to palpation, No Tenderness to palpation present (GI), No Guarding due to palpation present (GI) and Yes No hepatosplenomegaly present Extremity: COMMON NORMALS: normal to inspection, capillary refill normal, no clubbing, cyanosis or edema, no calf tenderness and no pedal edema Neuro: SENSORIUM/ORIENTATION: Yes oriented to person, Yes oriented to place and Yes oriented to time Skin: COMMON NORMALS: no rashes or lesions noted GENERAL SKIN EXAM: no rashes or lesions noted Course Vital Signs: Vital signs: Vital Signs Temperature 98.0 F 04/20/25 09:43 Pulse Rate 63 04/20/25 12:29 Respiratory Rate 16 04/20/25 11:00 Blood Pressure 97/70 04/20/25 12:29 Pulse Oximetry 96 04/20/25 12:29 Oxygen Delivery Me thod Room Air 04/20/25 11:00 MDM - Chest Pain Medical Decision Making Pain is reproducible in nature both with motion of the arm and with palpation. Musculoskeletal in nature. Cardiac enzymes negative. Chest x-ray is normal. Based on his presentation and his physical exam findings and contempt labs this is also musculoskeletal in nature no sign of acute coronary syndrome. He has not been hypoxic or tachypneic do not believe he has PE. On the chest x-ray there is no pneumonia or pneumothorax or widening of the mediastinum Medical Records I reviewed the patient's medical records. Lab Data I reviewed the patient's lab results. 04/20/25 09:49 04/20/25 09:49 Radiology Impressions Chest X-Ray 04/20/25 09:44 IMPRESSION: No acute findings. Laboratory Results WBC 8.18 10^3/uL (3.29-11.43) 04/20/25 09:49 RBC 4.84 10^6/uL (3.85-5.65) 04/20/25 09:49 Hgb 14.80 g/dL (11.27-16.99) 04/20/25 09:49 Hct 43.4 % (37-53) 04/20/25 09:49 MCV 89.7 fl (82-101) 04/20/25 09:49 MCH 30.6 pg (27-33) 04/20/25 09:49 MCHC 34.1 g/dL (30-55) 04/20/25 09:49 RDW 13.1 % (12.1-15.1) 04/20/25 09:49 Plt Count 225 10^3/cmm (157-399) 04/20/25 09:49 MPV 9.9 fL (7.4-10.4) 04/20/25 09:49 Neut % (Auto) 64.4 % 04/20/25 09:49 Lymph % (Auto) 28.0 % 04/20/25 09:49 [place] % (Auto) 6.2 % 04/20/25 09:49 Eos % (Auto) 0.6 % 04/20/25 09:49 Baso % (Auto) 0.7 % 04/20/25 09:49 Neut # (Auto) 5.26 10^3/uL (1.8-7.7) 04/20/25 09:49 Lymph # (Auto) 2.3 10^3/uL (0.8-4.8) 04/20/25 09:49 [place] # (Auto) 0.5 10^3/uL (0.2-0.9) 04/20/25 09:49 Eos # (Auto) 0.1 10^3/uL (0.0-0.8) 04/20/25 09:49 Baso # (Auto) 0.1 10^3/uL (0.0-0.1) 04/20/25 09:49 Nucleated RBC % (auto) 0 % 04/20/25 09:49 Nucleated RBCs # 0.0 /100WBC 04/20/25 09:49 Sodium 138 mmol/L (136-145) 04/20/25 09:49 Potassium 4.3 mmol/L (3.5-5.1) 04/20/25 09:49 Chloride 103 mmol/L (98-107) 04/20/25 09:49 Carbon Dioxide 20 mmol/L (22-29) L 04/20/25 09:49 Anion Gap 19.3 (5-19) H 04/20/25 09:49 BUN 9 mg/dL (6-20) 04/20/25 09:49 Creatinine 0.8 mg/dL (0.7-1.2) 04/20/25 09:49 GFR Calculation 104.1 mL/min (90-130) 04/20/25 09:49 Glucose 114 mg/dL (65-115) 04/20/25 09:49 Calculated Osmolality 286 mOsm/kg (285-295) 04/20/25 09:49 Calcium 8.7 mg/dL (8.5-10.5) 04/20/25 09:49 Total Bilirubin 0.5 mg/dL (0.15-1.2) 04/20/25 09:49 AST 13 U/L (0-40) 04/20/25 09:49 ALT 9 U/L (0-41) 04/20/25 09:49 Alkaline Phosphatase 82 U/L (40-130) 04/20/25 09:49 Troponin T Baseline 11 ng/L (0-15) 04/20/25 09:49 Troponin T 120 Minute 11.94 ng/L (0-15) 04/20/25 11:42 Delta Troponin T 0.94 ABS# (0-10) 04/20/25 11:42 Total Protein 6.7 g/dL (6.6-8.7) 04/20/25 09:49 Albumin 4.2 g/dL (3.5-5.2) 04/20/25 09:49 Globulin 2.5 g/dL (1.3-4.6) 04/20/25 09:49 All radiology interpretation(s) finalized by discharge ED provider radiology interpretation(s): Chest x-ray did not note significant cardiomegaly no effusions no infiltrates no masses. Osseous structures normal as visualed. No widening of mediastinum. No acute findings EKG Data EKG 1: I personally reviewed and interpreted this EKG as follows: Interpretation: EKG 04/20/2025 9:44 AM sinus rhythm no acute ST changes rate of 72 QTc 430. Compared to 8 EKG of 01/30/2025 ST elevation in the inferior leads seen at that time have resolved. EKG 2: I personally reviewed and interpreted this EKG as follows: Interpretation: EKG 04/21/2025 1139 sinus bradycardia rate of 57 [place] interval 155 QTc 417. Incomplete right bundle branch block noted. This is new compared to previous EKG done earlier today otherwise no acute changes noted. No STEMI. Compared EGD done earlier on the same day there are no acute ST elevation or T wave inversion Discharge Plan Discharge Patient Disposition: Home Clinical Impression: Anterior chest wall pain Condition: Stable Prescriptions: No Action alprazolam 0.25 mg tablet 0.25 mg PO BID PRN (Reason: anxiety) Qty: 20 1RF metoprolol succinate 25 mg tablet extended release 24 hr 25 mg PO DAILY Qty: 90 3RF clopidogrel 75 mg tablet 75 mg PO DAILY Qty: 90 3RF atorvastatin [Lipitor] 20 mg tablet 20 mg PO DAILY Qty: 30 11RF aspirin 81 mg Tablet,Delayed Release (Dr/Ec) 81 mg PO DAILY Qty: 30 0RF Discharge Orders: Discharge ED (Routine); Ordered 04/20/25 Ordered By: Justo Carreon Referrals: Contreras Kramer MD [Primary Care Provider, Family Practice] Discharge Diet: Usual diet Discharge Activity: Resume usual activity Patient Instructions: Chest Pain (ED), Chest Wall Pain (ED), Opioid Safety, Pain Management, Patient Portal & Mariluz Instructions Activity Restrictions/Additional Instructions: [email or web address]. It is very important that you follow up as instructed or that you return to the Emergency Department should you have concerns or if your condition changes or worsens in any way. Emergency department visits are focused on emergent conditions, in some cases you may require further evaluation on an outpatient basis. You were seen in the emergency room with complaints of chest pain. Chest pain is very reproducible with palpation across your chest wall particularly on the right side of the sternum. Your cardiac enzymes and EKG were normal and there is no sign that this is an acute coronary syndrome. You can use Tylenol ibuprofen ice or heat on the chest wall as needed for relief of symptoms. Follow-up with your primary care doctor. (Please note that included in your discharge packet is information concerning opioid safety and pain management. 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
[2025-04-20 09:43] VITALS: BP 145/82; PULSE 73; RESP 18; TEMP 36.7; O2SAT 96
--- NOTE | 2025-04-20 09:44 | XRR_ITS ---
PROCEDURE INFORMATION: Exam: XR Chest Exam date and time: 04/20/2025 9:55 AM Age: 45 years old Clinical indication: Pain; Angina pectoris; Additional info: Chest pain TECHNIQUE: Imaging protocol: Radiologic exam of the chest. Views: 1 view. COMPARISON: CT chest con [id number] 01/25/2025 11:22 AM FINDINGS: Lungs: No focal airspace opacity. Pleural spaces: No pneumothorax or large pleural effusion. Heart/Mediastinum: Heart size cannot be accurately assessed in this projection. Bones/joints: Unremarkable. XR/XR chest 1V portable [id number] IMPRESSION: No acute findings.
--- NOTE | 2025-04-20 09:44 | ECG_ITS ---
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 Measurements Intervals [place] Rate: 72 P: 35 [place]: 154 QRS: -19 QRSD: 110 T: -30 QT: 392 QTc: 430 Interpretive Statements SINUS RHYTHM POSSIBLE RIGHT VENTRICULAR CONDUCTION DELAY [RSR (QR) IN V1/V2] Compared to ECG 01/30/2025 10:40:31 ST (T wave) deviation no longer present Possible ischemia no longer present Electronically Signed On 04-21-2025 08:52:37 [employer]CH[employer]ENT[employer] by Manolo Ambrose M.D. [email or web address] [id number]
[2025-04-20 09:54] LABS: Hematocrit 43.4 % (37-53); Hemoglobin 14.80 g/dL (11.27-16.99); Mean Corpuscular HGB Conc 34.1 g/dL (30-55); Mean Corpuscular Hemoglobin 30.6 pg (27-33); Mean Corpuscular Volume 89.7 fl (82-101); Nucleated Red Blood Cells % 0 %; Platelet Count 225 10^3/cmm (157-399); Red Blood Count 4.84 10^6/uL (3.85-5.65); White Blood Count 8.18 10^3/uL (3.29-11.43)
[2025-04-20 10:17] LABS: Troponin(5th) Baseline 11 ng/L (0-15)
[2025-04-20 10:28] LABS: Alanine Aminotransferase 9 U/L (0-41); Albumin Level 4.2 g/dL (3.5-5.2); Alkaline Phosphatase 82 U/L (40-130); Blood Urea Nitrogen 9 mg/dL (6-20); Calcium 8.7 mg/dL (8.5-10.5); Carbon Dioxide 20 mmol/L (22-29); Chloride 103 mmol/L (98-107); Globulin 2.5 g/dL (1.3-4.6); Glucose 114 mg/dL (65-115); Osmolality Calculated 286 mOsm/kg (285-295); Sodium 138 mmol/L (136-145); Total Protein 6.7 g/dL (6.6-8.7)
[2025-04-20 10:32] LABS: Anion Gap 19.3 (5-19); Aspartate Amino Transferase 13 U/L (0-40); Potassium 4.3 mmol/L (3.5-5.1)
[2025-04-20 11:00] VITALS: BP 114/67; PULSE 63; RESP 16; O2SAT 99
--- NOTE | 2025-04-20 11:44 | ECG_ITS ---
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 Measurements Intervals [place] Rate: 57 P: 26 [place]: 155 QRS: 73 QRSD: 114 T: 97 QT: 427 QTc: 417 Interpretive Statements SINUS BRADYCARDIA INCOMPLETE RIGHT BUNDLE BRANCH BLOCK [90+ ms QRS DURATION, TERMINAL R IN V1/V2, 40+ ms S IN I/aVL/V4/V5/V6] Compared to ECG 04/20/2025 09:44:35 Incomplete right bundle-branch block now present Sinus rhythm no longer present Electronically Signed On 04-22-2025 00:11:45 [employer] by Manolo Ambrose M.D. [email or web address]
[2025-04-20 12:05] LABS: Troponin 5 2HR 11.94 ng/L (0-15); Troponin 5 2HR Delta 0.94 ABS# (0-10)
[2025-04-20 12:29] VITALS: BP 97/70; PULSE 63; O2SAT 96
--- OUTSIDE RECORDS SUMMARY | 2025-04-20 18:17 | XMS_ITS | Clinical Summary ---
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 Gender Identity Not on file Sexual Orientation Not on file Last Filed Vital Signs Vital Sign Reading Time Taken Comments Blood Pressure 140/90 05/29/2021 8:00 PM [employer] ROLL REFINER BATCH MIXER Pulse 74 05/29/2021 8:00 PM [employer] RE[employer] M[employer]ER Temperature 36.2 C (97.2 F) 05/29/2021 7:48 PM [employer] REFINER BATCH MIXER Respiratory Rate 19 05/29/2021 8:00 PM [employer]LL REFINER [employer]ATCH MIXER Oxygen Saturation 97% 05/29/2021 8:00 PM [employer] REFINER [employer] MIXER Inhaled Oxygen Concentration - - Weight 92.5 kg (204 lb) 05/29/2021 7:48 PM F[employer] ROLL REFINER BATCH MIXER Height 182.9 cm (6') 05/29/2021 7:48 PM [employer] ROLL REFINER B[employer] MIXER Body Mass Index 27.67 05/29/2021 7:48 PM [employer]LL REFINER [employer]ATCH MIXER Plan of Treatment Health Maintenance Due Date Last Done Comments DTAP/TDAP/TD VACCINES (1 - Tdap) 1998 HEPATITIS B VACCINES (1 of 3 - 19+ 3-dose series) 1998 COLORECTAL SCREENING 2024 Colorectal Cancer Screening 2024 FIT-DNA Q 3 years 2024 FIT/FOBT Q 1 year 2024 Flex Sig/CT Colonography Q 5 years 2024 INFLUENZA VACCINE (#1) 2025 HPV VACCINES Aged Out No longer eligi ble based on patient's age to complete this topic Insurance [facility] [id number] POS II
== END 2025-04-20 12:30 | disposition home or self-care (01) ==
PROVIDERS: Emergency Provider Family Medicine; PCP Family Medicine
DX: R07.89 Other chest pain (principal); Z79.02 Long term (current) use of antithrombotics/antiplatelets; Z79.82 Long term (current) use of aspirin; I25.10 Atherosclerotic heart disease of native coronary artery without angina pectoris
CPT/HCPCS: 36415; 71045; 80053; 84484; 85025; 93005; 99285; J9999